=== PATIENT | male | born 1930 | race Caucasian/White ===

== ENCOUNTER 2017-10-20 12:27 | Day surgery (SDC) | payer MEDICARE, BC ==
[~2017-10-20 12:27] MED LIST: Buffered Lidocaine 0.9% SYRIN* 5 ML/SYR SYRINGE INTRADERM ONE; Famotidine IV* 10 MG/ML 2 ML (20 mg) IV ONE
[2017-10-20] MEDS ORDERED: Famotidine TAB* 20 MG ONE (12:52)
[2017-10-20] MEDS ORDERED: fentaNYL* 50 MCG/ML 2 ML VIAL (100 MCG VIAL) ONE (14:55)
[2017-10-20] MEDS ORDERED: Midazolam* 1 MG/ML 2 ML VIAL (2 MG) ONE (14:55)
[2017-10-20] MEDS ORDERED: Acetaminophen TAB* 325 MG PO PRN (14:57)
[2017-10-20] MEDS ORDERED: DiMENhydriNATE IV* 50 MG/ML VIAL IV PUSH PRN (14:57)
[2017-10-20] MEDS ORDERED: Naloxone* 0.4 MG/ML 1 ML VIAL IV PRN (14:57)
[2017-10-20] MEDS ORDERED: fentaNYL* 50 MCG/ML 2 ML VIAL (100 MCG VIAL) IV PRN (14:57)
[2017-10-20] MEDS ORDERED: Lidocaine 2% PF * 5 ML VIAL ONE (15:05)
[2017-10-20] MEDS ORDERED: Propofol* 10 MG/ML 20 ML BTL IV PUSH ONE (15:05)
[2017-10-20 16:09] VITALS: BP 148/87
--- NOTE | 2017-10-21 01:13 | PRO ---
CC: Dr. Osuna; Sunshine Magana DO GASTROENTEROLOGY OPERATIVE REPORT: DATE OF PROCEDURE: 10/20/17 OPERATIVE PROCEDURE: Esophagogastroduodenoscopy to second portion of the duodenum. SURGEON: Sunshine Magana DO. ANESTHESIA: Monitored anesthesia care. HISTORY OF PRESENT ILLNESS: Ed is a pleasant 86-year-old gentleman with a history of gastroesophageal reflux disease and previous Schatzki's ring with dilation back [place] [address] Pompa. He recently presented in [place] with a food impaction, it was successfully disimpacted, although he was instructed to have a followup endoscopy for further evaluation. He was switched over from omeprazole therapy to pantoprazole therapy with significant improvement of his symptoms. He is here for a diagnostic endoscopy. PREOPERATIVE DIAGNOSES: 1. Gastroesophageal reflux disease. 2. Recent food impaction. POSTOPERATIVE DIAGNOSES: 1. Tortuous distal esophagus. 2. LA grade A distal esophagitis with biopsies. 3. A 3-cm hiatal hernia. 4. Mild antral gastritis with CLOtest to rule out H. pylori. 5. Normal-appearing mid and proximal esophagus. 6. A 5-mm gastric fundic polyp, with biopsies. RECOMMENDATIONS: 1. Continue pantoprazole therapy daily. 2. Encouraged antireflux lifestyle modifications. 3. Encouraged to chew meals thoroughly to prevent any further food impactions. 4. We will follow up with path results and provide recommendations as necessary. DESCRIPTION OF PROCEDURE: Esophagogastroduodenoscopy was explained in detail to the patient. The risks, benefits, complications, alternatives, possibilities of missed lesions were explained and understood. Complications included, but were not limited to, reaction to anesthesia, aspiration, increased risk of bleeding, and perforation. All questions were answered. The patient demonstrated understanding of the conversation and informed consent was obtained. Next, the patient was brought to the endoscopy suite, placed in the left lateral recumbent position where blood pressure, cardiac, and oxygen monitors were applied. The patient was found to be a fit candidate for monitored anesthesia care. After adequate IV sedation was achieved, a bite block was placed. Next, a standard adult Olympus endoscope was inserted per os under direct visualization to the first and second portion of the duodenum. The first and second portion of the duodenum, including the bulb, were normal appearing. Further withdrawal of the endoscope into the gastric lumen revealed a very mild erythematous antrum. CLOtest was performed in order to H. pylori. On retroflexion, the patient had a loose gastric cardia sling. Further withdrawal of the endoscope into the distal esophagus revealed a 3 cm hiatal hernia ranging from 43 cm to 40 cm. Also there were erythematous changes consistent with LA grade A distal esophagitis. Cold forceps biopsies were obtained from this area. The patient was also noted to have a tortuous distal esophagus which could have been an etiology for the patient's food impaction given hiatal hernia, esophagitis, and tortuous esophagus. The rest of the tubular esophagus was normal appearing. Air was then removed from the patient. Endoscope was removed from the patient. The patient tolerated the procedure well. There were no immediate complications. 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 Thank you, Dr. Osuna, for allowing us to participate in the care of your patient. If you should have any further questions or concerns, please do not hesitate to contact us. [id number]/[facility] #: [id number] YUMIKO
== END 2017-10-20 16:00 | disposition home or self-care (01) ==
LOC: OR 12:27
PROVIDERS: ATTEND Internal Medicine Gastroenterology
DX: R13.10 Dysphagia, unspecified (principal); K22.2 Esophageal obstruction; K21.0 Gastro-esophageal reflux disease with esophagitis; K44.9 Diaphragmatic hernia without obstruction or gangrene; K31.7 Polyp of stomach and duodenum; J44.9 Chronic obstructive pulmonary disease, unspecified; N18.9 Chronic kidney disease, unspecified; E11.9 Type 2 diabetes mellitus without complications; Z79.84 Long term (current) use of oral hypoglycemic drugs; Z87.891 Personal history of nicotine dependence; D64.9 Anemia, unspecified
CPT/HCPCS: 87077; 88305; A9270-GY; J2250; J2704; J3010

== ENCOUNTER 2018-02-15 06:02 | Inpatient (IN) | payer MEDICARE, BC ==
--- NOTE | 2018-02-07 20:40 | HP ---
HISTORY AND PHYSICAL: DATE OF ADMISSION/SURGERY: 02/15/18 DATE OF OFFICE VISIT: 02/05/18 SURGEON: Venecia Taylor MD * (DICTATED BY VINEET ROONEY) PROCEDURE: Left total hip arthroplasty. CHIEF COMPLAINT: Left hip pain. HISTORY OF PRESENT ILLNESS: Mr. 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 He has failed conservative treatment and elected to proceed with a left total hip arthroplasty, which is scheduled for with Dr. Taylor. PAST MEDICAL HISTORY: Sleep apnea, spinal stenosis, diabetes, BPH, COPD, hypertension, esophageal stricture, osteoarthritis, asthma, and bradycardia. PAST SURGICAL HISTORY: Right shoulder surgery and upper endoscopy. CURRENT MEDICATIONS: 1. Aspirin 81 mg daily. 2. Terazosin 10 mg daily. 3. Allopurinol 300 mg daily. 4. Simvastatin 40 mg daily. 5. Singulair 10 mg daily. 6. Foradil Aerolizer as needed. 7. Proventil 2 puffs daily as needed. 8. Symbicort 2 puffs daily. 9. Magnesium oxide. 10. Metformin 500 mg twice a day. 11. Loratadine 10 mg daily. 12. Dulcolax as needed. 13. Ibuprofen as needed. 14. Gabapentin 300 mg daily. 15. Pantoprazole 40 mg daily. 16. Losartan potassium 50 mg daily. 17. Montelukast sodium 10 mg daily. 18. Meloxicam 7.5 mg twice daily. ALLERGIES: No known drug allergies. FAMILY HISTORY: Cancer. SOCIAL HISTORY: An 87-year-old who lives with his . He does not smoke or use drugs. Uses occasional alcohol. REVIEW OF SYSTEMS: A complete 14-point review of systems was reviewed with the patient. It was positive for GERD, diabetes, COPD, occasional shortness of breath. He reports his heart stopped during the shoulder surgery in the past. He denies history of DVT, PE, hepatitis, or HIV. PHYSICAL EXAMINATION GENERAL: He is well developed, well nourished, in no acute distress. VITAL SIGNS: He stands 5 feet 10 inches tall, weighs 185 pounds, blood pressure 150/70, heart rate 60. HEENT: Normocephalic, atraumatic. NECK: Supple. No palpable lymph nodes. PULMONARY: Lungs are clear to auscultation bilaterally. CARDIO: Regular rate and rhythm. Strong S1 and S2. ABDOMEN: Soft, nontender, nondistended. NEUROLOGICAL: Alert and oriented x3. MUSCULOSKELETAL: Left lower extremity: The skin is intact. There are no open wounds or abrasions. He walks with an antalgic-type gait, favoring his left hip. He has decreased internal and external rotation of the left hip. He is able to flex to 80 degrees and has essentially no rotation internally, externally without severe pain. He has 2+ dorsalis pedis pulse, intact sensation, and his lower extremity muscle group strengths are intact at 5/5. ASSESSMENT AND PLAN: Mr. Healy is an 87-year-old gentleman with end-stage osteoarthritis of the left hip. He has failed conservative treatment and elected to proceed with a left total hip arthroplasty. The surgery is scheduled for 02/15/[address] Taylor discussed the risks and benefits of the surgery at today's visit and all of his questions were answered. He will follow with Dr. Taylor 2 weeks after the surgery. VINEET ROONEY [id number]/[facility] #: [id number] YUMIKO
--- OUTSIDE RECORDS SUMMARY | 2018-02-15 06:08 | XMS REPORT ---
:1930 External Reference #:[id number] Author Organization [facility] Address [address] [place] [address] Phone [phone] Care Team Providers Name Role Phone Ej Osuna DO Primary Care Physician Unavailable Payers Type Date Identification Numbers Payment Provider Subscriber Medicare Primary Effective: Policy Number: Medicare Malik Healy 1995 [id number] PayID: [id number] [address] [place] [address] [facility]: 2012 Policy Number: BS Facets Malik Healy [id number] PayID: [id number] [address] [address] [place] [address] Problems Date Description Provider Status Onset: 01/05/2017 Type 2 diabetes mellitus Ryan Harper DO [facility] Active Onset: 12/11/2017 Neurogenic claudication Tejas Fraga M.D. Active co-occurrent and due to spinal stenosis of lumbar region Onset: 12/11/2017 Lumbar spondylolisthesis Tejas Fraga M.D. Active Onset: 12/11/2017 Arthralgia of the pelvic region and Tejas Fraga M.D. Active thigh Onset: 12/18/2017 Localized, primary osteoarthritis Venecia Taylor M.D. Active of the pelvic region and thigh Family History Date Family Member(s) Problem(s) Comments General Cancer General Heart Disease Siblings 1 Social History Type Date Description Comments Marital Status Lives With Spouse Occupation Retired Cigarette Use Quit 50 Years Ago Cigars Quit 50 Years Ago Pipe Never Smoked A Pipe Smokeless Tobacco Never Used Smokeless Tobacco ETOH Use Drinks 1 Alcoholic Beverage Per Day Recreational Drug Use Denies Drug Use Smoking Patient has never smoked Daily Caffeine Consumes on average 2 cups of regular coffee per day Exercise Type/Frequency Exercises sporadically Allergies, Adverse Reactions, Alerts Date Description Reaction Status Severity Comments 02/22/2011 NKDA active Medications Medication Date Status Form Strength Qnty SIG Indications Ordering Provider Aspirin Adult Active Tablets 81mg 1 po qd ( Unknown /0000 DR On hold since 02/08/18) Terazosin HCL Active Capsules 10mg 90cap take 1 Unknown /0000 s capsule by mouth every morning Allopurinol Active Tablets 300mg 90tab 1 po qd Unknown /0000 s Simvastatin Active Tablets 40mg 90tab 1 po qhs Unknown /0000 s Foradil Aerolizer Active Capsules 12mcg 60cap 1 puff Unknown /0000 s bid Proventil Active Aerosol 90mcg/Act 1unit 2 puffs Unknown /0000 s po qid prn Symbicort Active Aerosol 160-4.5mc 2 puff Unknown /0000 g/Act twice a day Magnesium Oxide -MG Active Capsules 400mg 1 or 2 by Unknown Supplement /0000 mouth every day 3-4 days a week and adjust as needed Metformin HCL Active Tablets 500mg 1 by Unknown /0000 mouth twice a day Loratadine Active Tablets 10mg 1 by Unknown /0000 mouth every day Docusate Sodium Active Tablets 100mg 1 by Unknown /0000 mouth twice daily Ketoconazole Active Cream 2% apply Unknown /0000 twice a day prn Gabapentin Active Capsules 300mg 1 by Unknown /0000 mouth a day Pantoprazole Sodium Active Tablets 40mg 1 by Unknown /0000 DR mouth every day Losartan Potassium Active Tablets 50mg Take One Unknown /0000 Tablet By Mouth Every Morning For High Blood Pressure Montelukast Sodium Active Tablets 10mg 1 by Unknown /0000 mouth every day Meloxicam Active Tablets 7.5mg take one Unknown /0000 tab twice daily as needed for pain, avoid other nsaids ( On Hold since 02/08/18) Symbicort 10/17 Hx Aerosol 80-4.5mcg 60uni 1 puff Yoan /2012 /Act ts inhaled MD Moisés - bid 01/03 Hydrochlorothiazide 00/ Hx Tablets 25mg 30tab 1 po qd Unknown /0000 s (not - taking) 12/08 Loratadine Hx Tablets 10mg 1mont 1 po qd Unknown /0000 h - 10/17 Omeprazole Hx Capsules 20mg 30cap 1 po qd Unknown /0000 s - 11/15 Singulair Hx Tablets 10mg 90tab 1 po qd Unknown /0000 s - 01/29 Lisinopril Hx Tablets 20mg 90tab 1/2 po qd Unknown /0000 s - 11/15 Asmanex 120 Metered Hx Aerosol 220mcg/In one 1 inh bid Unknown Doses /0000 h - 10/17 Hydrocodone/Ibuprofe Hx Tablets 7.5-200mg 50tab 1-2 bid Unknown n /0000 s prn(pt - dose have 12/08 has not been using) Chlorthalidone Hx Tablets 25mg 1/2 by Unknown /0000 mouth - every day 11/15 on Spiriva Respimat 00/ Hx Aerosol 2.5mcg/Ac 2 puffs Unknown /0000 t every day - 02/15 Ibuprofen Hx Tablets 600mg Unknown /0000 - 02/08 Hydrocodone Hx Suer 10-8mg/5M Take 5ML Unknown Polistirex/Chlorphen /0000 L By Mouth iramine Polistirex - Every 12 / Hours Needed For Cough Max Day 10ML Medications Administered in Office Medication Date Status Form Strength Qnty SIG Indications Ordering Provider Inj, Administered Injection Ryan Damian Regadenoson, 018 DO Leroy 0.1 MG FACC Technetium TC Administered Injection Ryan S. 99M 018 Harper, DO Tetrofosmin, FACC Per Unit Dose Up To 40 Millicuries Vital Signs Date Vital Result Comment 02/09/2018 Height 70.25 inches 5'10.25" Weight 183.00 lb with shoes Heart Rate 48 /min BP Systolic Sitting 140 mmHg Lue reg cuff BP Diastolic Sitting 60 mmHg Lue reg cuff BP Systolic Standing 142 mmHg Lue reg cuff BP Diastolic Standing 60 mmHg Lue reg cuff Respiratory Rate 16 /min BMI (Body Mass Index) 26.1 kg/m2 Ejection Fraction 55-60% date 01/23/2017 ECHO 02/05/2018 Height 70.25 inches 5'10.25" Weight 185.00 lb Heart Rate 60 /min BP Systolic 150 mmHg BP Diastolic 70 mmHg BMI (Body Mass Index) 26.4 kg/m2 01/30/2018 Height 70.25 inches 5'10.25" Heart Rate 48 /min BP Systolic 110 mmHg BP Diastolic 78 mmHg Respiratory Rate 16 /min Pain Level 4 backpain/hip O2 % BldC Oximetry 98 % 01/15/2018 Height 70.25 inches 5'10.25" Heart Rate 58 /min BP Systolic 120 mmHg BP Diastolic 86 mmHg Respiratory Rate 16 /min Body Temperature 97.2 F Pain Level 7 12/18/2017 Height 70.25 inches 5'10.25" Weight 185.00 lb Heart Rate 60 /min BP Systolic 136 mmHg BP Diastolic 80 mmHg BMI (Body Mass Index) 26.4 kg/m2 12/11/2017 Height 70.75 inches 5'10.75" Weight 170.50 lb Heart Rate 56 /min BP Systolic 150 mmHg BP Diastolic 70 mmHg Respiratory Rate 16 /min Body Temperature 96.5 F Pain Level 10 intermittent BMI (Body Mass Index) 23.9 kg/m2 11/15/2017 Height 70.75 inches 5'10.75" Weight 185.00 lb BP Systolic Sitting 140 mmHg BP Diastolic Sitting 80 mmHg Pain Level 8 BMI (Body Mass Index) 26.0 kg/m2 05/16/2017 Height 70.75 inches 5'10.75" Weight 185.00 lb Heart Rate 80 /min BP Systolic Sitting 130 mmHg BP Diastolic Sitting 80 mmHg Respiratory Rate 16 /min Pain Level 5 back BMI (Body Mass Index) 26.0 kg/m2 02/28/2017 Height 70.75 inches 5'10.75" Weight 185.00 lb Heart Rate 48 /min BP Systolic Sitting 118 mmHg BP Diastolic Sitting 72 mmHg Respiratory Rate 16 /min BMI (Body Mass Index) 26.0 kg/m2 02/16/2017 Height 70.75 inches 5'10.75" Weight 185.00 lb with shoes Heart Rate 54 /min BP Systolic Sitting 150 mmHg Rue reg cuff BP Diastolic Sitting 62 mmHg Rue reg cuff BP Systolic Standing 148 mmHg Rue reg cuff BP Diastolic Standing 60 mmHg Rue reg cuff Respiratory Rate 16 /min BMI (Body Mass Index) 26.0 kg/m2 Ejection Fraction 55-60% date 01/23/17 ECHO 01/05/2017 Height 70.75 inches 5'10.75" Weight 185.00 lb without shoes Heart Rate 58 /min BP Systolic 140 mmHg Rue reg cuff BP Diastolic 62 mmHg Rue reg cuff BP Systolic Sitting 152 mmHg Lue reg cuff BP Diastolic Sitting 66 mmHg Lue reg cuff BP Systolic Standing 132 mmHg Lue reg cuff " unsure on feet" BP Diastolic Standing 60 mmHg Lue reg cuff " unsure on feet" Respiratory Rate 16 /min BMI (Body Mass Index) 26.0 kg/m2 10/25/2016 Height 72 inches 6'0" Heart Rate 52 /min BP Systolic 136 mmHg BP Diastolic 68 mmHg Respiratory Rate 12 /min no difficulties breathing Pain Level 0 05/10/2016 Height 72 inches 6'0" Weight 196.00 lb Heart Rate 53 /min BP Systolic 126 mmHg BP Diastolic 62 mmHg BMI (Body Mass Index) 26.6 kg/m2 10/27/2015 Heart Rate 80 /min BP Systolic Standing 128 mmHg BP Diastolic Standing 80 mmHg 05/19/2015 Heart Rate 76 /min BP Systolic Sitting 122 mmHg BP Diastolic Sitting 78 mmHg 10/21/2014 Heart Rate 78 /min BP Systolic Sitting 124 mmHg BP Diastolic Sitting 82 mmHg 01/21/2014 Heart Rate 62 /min BP Systolic Sitting 126 mmHg BP Diastolic Sitting 78 mmHg 10/15/2013 Heart Rate 78 /min BP Systolic Sitting 128 mmHg BP Diastolic Sitting 82 mmHg Results Test Date Test Result H/L Range Note Type & Screen 02/05/2018 Patient Blood Type A Negative 1 Antibody Screen NEGATIVE 1 CBC Auto Diff 01/24/2018 White Blood Count 5.0 10^3/uL 3.5-10.8 Red Blood Count 3.41 10^6/uL Low 4.00-5.40 Hemoglobin 11.5 g/dL Low 14.0-18.0 Hematocrit 34 % Low 42-52 Mean Corpuscular Volume 100 fL High 80-94 Mean Corpuscular Hemoglobin 34 pg High 27-31 Mean Corpuscular HGB Conc 34 g/dL 31-36 Red Cell Distribution Width 14 % 10.5-15 Platelet Count 190 10^3/uL 150-450 Mean Platelet Volume 9.3 um3 7.4-10.4 Abs Neutrophils 3.2 10^3/uL 1.5-7.7 Abs Lymphocytes 1.1 10^3/uL 1.0-4.8 Abs Monocytes 0.5 10^3/uL 0-0.8 Abs Eosinophils 0.1 10^3/uL 0-0.6 Abs Basophils 0 10^3/uL 0-0.2 Abs Nucleated RBC 0 10^3/uL Granulocyte % 64.9 % 38-83 Lymphocyte % 22.5 % Low 25-47 Monocyte % 10.2 % High 0-7 Eosinophil % 1.7 % 0-6 Basophil % 0.7 % 0-2 Nucleated Red Blood Cells % 0.1 Urinalysis Profile 01/24/2018 Urine Color Straw Urine Appearance Clear Urine Specific [place] 1.009 Low 1.010-1.030 Urine pH 7.0 5-9 Urine Urobilinogen Negative Negative Urine Ketones Negative Negative Urine Protein Negative Negative Urine Leukocytes Negative Negative Urine Blood Negative Negative Urine Nitrite Negative Negative Urine Bilirubin Negative Negative Urine Glucose Negative Negative Inr/Protime 01/24/2018 Inr 0.99 0.77-1.02 Comp Metabolic Panel 01/24/2018 Sodium 135 mmol/L 135-145 Potassium 4.5 mmol/L 3.5-5.0 Chloride 102 mmol/L 101-111 Co2 Carbon Dioxide 25 mmol/L 22-32 Anion Gap 8 mmol/L 2-11 Glucose 136 mg/dL High 70-100 Blood Urea Nitrogen 14 mg/dL 6-24 Creatinine 1.00 mg/dL 0.67-1.17 BUN/Creatinine Ratio 14.0 8-20 Calcium 9.7 mg/dL 8.6-10.3 Total Protein 6.5 g/dL 6.4-8.9 Albumin 4.3 g/dL 3.2-5.2 Globulin 2.2 g/dL 2-4 Albumin/Globulin Ratio 2.0 1-3 Total Bilirubin 0.50 mg/dL 0.2-1.0 Alkaline Phosphatase 49 U/L 34-104 Alt 14 U/L 7-52 Ast 14 U/L 13-39 Egfr Non- 70.5 >60 Egfr 85.3 >60 2 1 PAIN IN LEFT HIP, UNILATERAL PRIMARY OSTEOARTHRITI 2 Because ethnic data is not always readily available, this report includes an eGFR for both -Americans and non- Americans. The National Kidney Disease Education Program (NKDEP) does not endorse the use of the MDRD equation for patients that are not between the ages of 18 and 70, are , have extremes of body size, muscle mass, or nutritional status, or are non- or non-. According to the National Kidney Foundation, irrespective of diagnosis, the stage of the disease is based on the level of kidney function: Stage Description GFR(mL/min/1.73 m(2)) 1 Kidney damage with normal or decreased GFR 90 2 Kidney damage with mild decrease in GFR 60-89 3 Moderate decrease in GFR 30-59 4 Severe decrease in GFR 15-29 5 Kidney failure <15 (or dialysis) Procedures Date CPT Code Description Status 02/09/2018 12998 EKG Tracing & Interpretation Completed 02/08/2018 57416 Holter Monitor Review (24 hr)dr review & interp only Completed 02/07/2018 82231 ECG Monitor/Recording W/Visual Superimposition Scanning Completed 02/07/2018 34614 ECG Monitor/Recording W/Visual Superimposition Scanning Completed 01/31/2018 09424 Stress Test Completed 01/31/2018 40289 Myocardial Perfusion Imaging Tomographic (Spect) Completed Multiple Studies 01/30/2018 59142 Remove Impacted Cerumen Completed 10/20/2017 57617 Endoscopy Upper GI Biopsy Completed 05/16/2017 72461 Remove Impacted Cerumen Completed 02/28/2017 85011 Remove Impacted Cerumen Completed 01/30/2017 35565 Holter Monitor Review (24 hr) review & interp only Completed 01/26/2017 61341 ECG Monitor/Recording W/Visual Superimposition Scanning Completed 01/23/2017 20080 ECHO Transthoracic, Real-Time 2D With Doppler And Color Completed Flow 01/05/2017 10868 EKG Tracing & Interpretation Completed 10/25/2016 77998 Remove Impacted Cerumen Completed 05/10/2016 04403 Remove Impacted Cerumen Completed 10/27/2015 43502 Remove Impacted Cerumen Completed 05/19/2015 26567 Remove Impacted Cerumen Completed 10/21/2014 86631 Remove Impacted Cerumen Completed 05/13/2014 17717 Remove Impacted Cerumen Completed 01/21/2014 62350 Remove Impacted Cerumen Completed 10/15/2013 83703 Remove Impacted Cerumen Completed 05/14/2013 69370 Remove Impacted Cerumen Completed 02/19/2013 08753 Tympanometry Completed 02/05/2013 96344 Remove Impacted Cerumen Completed 10/16/2012 17593 Remove Impacted Cerumen Completed 06/05/2012 31908 Remove Impacted Cerumen Completed 01/17/2012 34528 Remove Impacted Cerumen Completed 10/18/2011 31063 Remove Impacted Cerumen Completed 05/31/2011 10501 Remove Impacted Cerumen Completed 02/22/2011 83387 Remove Impacted Cerumen Completed Encounters Type Date Location Provider CPT E/M Dx Office Visit 01/15/2018 [facility] Venecia Taylor M.D. 10613 M25.552 10:15a Of [place] M16.12 Office Visit 12/18/2017 10:00a [facility] Of Venecia Taylor M.D. 32736 M48.062 [place] M25.552 M16.12 Office Visit 11/15/2017 2:15p [facility] Criselda Summers PA-C 64745 M48.[address] [facility] M43.16 M25.552 M51.36 Office Visit 02/16/2017 2:00p [facility] [address]00[address] [facility] FAC Office Visit 01/05/2017 1:00p [facility] Ryan Harper 61704 R06.02 [facility] R00.2 I10 E11.69 E78.5 J44.9 R00.1 Office Visit 03/05/2013 2:00p [facility] Of [place] Owens, 86458 381.81 AT [facility] Office Visit 02/19/2013 1:15p [facility] Of [place] Owens 34741 388.2 AT [facility] Office Visit 10/23/2012 11:20a [facility] Oj Romeo 13531 724.03 Of Brando Wu 724.02 Office Visit 05/14/2012 3:00p [facility] O[place] Romeo 58660 724.03 Of [facility] Wu 724.02 Plan of Care Future Appointment(s):02/28/2018 10:45 am - Venecia Taylor M.D. at [facility]05/08/2018 1:45 pm - Bandar Owens M.D. at [facility] AT Fwtbzljf12/09/2018 7:30 am - Carlos Eduardo Gregory PA-C at [facility]02/15/2018 7:30 am - VINEET Vasquez at [facility]02/15/2018 7:30 am - Venecia Taylor M.D. at [facility]02/09/2018 - Ryan Harper DO FACCZ01.810 Encounter for preprocedural cardiovascular examinationFollow up:1 year
--- OUTSIDE RECORDS SUMMARY | 2018-02-15 06:09 | XMS REPORT ---
:1930 External Reference #:[id number] Author Organization [facility] Address [address] [place] [address] [place] [address] Phone [phone] Care Team Providers Name Role Phone Ej Osuna DO Primary Care Physician Unavailable Payers Type Date Identification Numbers Payment Provider Subscriber Medicare Primary Effective: Policy Number: Medicare Malik Healy 1995 [id number] PayID: [id number] [address] [place] [address] [place] Part B Effective: 2012 Policy Number: BS Facets Malik Healy [id number] PayID: [id number] [address] [address] [place] [address] Problems Date Description Provider Status Onset: 01/05/2017 Type 2 diabetes mellitus Ryan Harper DO [facility] Active Onset: 12/11/2017 Neurogenic claudication Tejas Fraga [...] Adult Active Tablets 81mg 1 po qd Unknown / DR Terazosin HCL Active Capsules 10mg 90cap take 1 Unknown / s capsule by mouth every evening Allopurinol Active Tablets 300mg 90tab 1 po qd Unknown / s Simvastatin Active Tablets 40mg 90tab 1 po qhs Unknown / s Foradil Aerolizer Active Capsules 12mcg 60cap 1 puff bid Unknown / s Proventil Active Aerosol 90mcg/Act 1unit 2 puffs po Unknown / s qid prn Symbicort Active Aerosol 160-4.5mc 2 puff Unknown /0000 g/Act twice a day Magnesium Oxide Active Capsules 400mg 1 or 2 by Unknown -MG Supplement /0000 mouth every day 3-4 days a week and adjust as needed Metformin HCL Active Tablets 500mg 1 by mouth Unknown /0000 twice a day Loratadine Active Tablets 10mg 1 by mouth Unknown /0000 every day Docusate Sodium Active Tablets 100mg 1 by mouth Unknown /0000 up to two times a day as needed for constipatio n Ketoconazole Active Cream 2% apply twice Unknown /0000 a day prn Ibuprofen Active Tablets 600mg twice a Unknown /0000 day prn Gabapentin Active Capsules 300mg 1 by mouth Unknown /0000 a day Pantoprazole Active Tablets 40mg 1 by mouth Unknown Sodium /0000 DR every day Losartan Potassium Active Tablets 50mg Take One Unknown /0000 Tablet By Mouth Every Morning For High Blood Pressure Montelukast Sodium Active Tablets 10mg 1 by mouth Unknown /0000 every day Meloxicam Active Tablets 7.5mg take one Unknown /0000 tab twice daily as needed for pain, avoid other nsaids Symbicort 10/17 Hx Aerosol 80-4.5mcg 60uni 1 puff Yoan, /2012 /Act ts inhaled bid MD Moisés - 01/03 Hydrochlorothiazid 00/00 Hx Tablets 25mg 30tab 1 po qd Unknown e /0000 s (not - taking) 12/08 Loratadine / Hx Tablets 10mg 1mont 1 po qd Unknown /0000 h - 10/17 Omeprazole 00/ Hx Capsules 20mg 30cap 1 po qd Unknown /0000 s - 11/15 Singulair 00 Hx Tablets 10mg 90tab 1 po qd Unknown /0000 s - 01/29 Lisinopril 00/ Hx Tablets 20mg 90tab 1/2 po qd Unknown /0000 s - 11/15 Asmanex 120 00/ Hx Aerosol 220mcg/In one 1 inh bid Unknown Metered Doses /0000 h - 10/17 Hydrocodone/Ibupro 00 Hx Tablets 7.5-200mg 50tab 1-2 bid Unknown fen /0000 s prn(pt dose - have has 12/08 not been using) Chlorthalidone Hx Tablets 25mg 1/2 by Unknown /0000 mouth every - day on hold 11/15 Spiriva Respimat 00/00 Hx Aerosol 2.5mcg/Ac 2 puffs Unknown /0000 t every day - 02/15 Hydrocodone Hx Suer 10-8mg/5M Take 5ML By Unknown Polistirex/Chlorph /0000 L Mouth Every eniramine - 12 Hours as Polistirex 12/08 Needed For /2016 Cough Max Day 10ML Vital Signs Date Vital Result Comment 01/30/2018 Height 70.25 inches 5'10.25" Heart Rate [...] Test Date Test Result H/L Range Note CBC Auto Diff 01/24/2018 White Blood Count [...] Color Straw Urine Appearance Clear Urine Specific [place] 1.009 Low 1.010-1.030 Urine pH 7.0 5-9 [...] Egfr Non- 70.5 >60 Egfr 85.3 >60 1 1 Because ethnic data is not always readily [...] dialysis) Procedures Date CPT Code Description Status 10/20/2017 67535 Endoscopy Upper GI Biopsy Completed 05/16/2017 67962 Remove Impacted Cerumen Completed 02/28/2017 26109 Remove Impacted Cerumen Completed 01/30/2017 39063 Holter Monitor Review (24 hr)dr mccabe & interp only Completed 01/26/2017 02362 ECG Monitor/Recording W/Visual Superimposition Scanning Completed 01/23/2017 41329 ECHO Transthoracic, Real-Time 2D With Doppler And Color Completed Flow 01/05/2017 05403 EKG Tracing & Interpretation Completed 10/25/2016 02656 Remove Impacted Cerumen Completed 05/10/2016 38213 Remove Impacted Cerumen Completed 10/27/2015 14562 Remove Impacted Cerumen Completed 05/19/2015 11495 Remove Impacted Cerumen Completed 10/21/2014 24776 Remove Impacted Cerumen Completed 05/13/2014 56539 Remove Impacted Cerumen Completed 01/21/2014 64814 Remove Impacted Cerumen Completed 10/15/2013 66558 Remove Impacted Cerumen Completed 05/14/2013 71654 Remove Impacted Cerumen Completed 02/19/2013 20341 Tympanometry Completed 02/05/2013 37329 Remove Impacted Cerumen Completed 10/16/2012 79609 Remove Impacted Cerumen Completed 06/05/2012 87602 Remove Impacted Cerumen Completed 01/17/2012 44661 Remove Impacted Cerumen Completed 10/18/2011 05294 Remove Impacted Cerumen Completed 05/31/2011 10920 Remove Impacted Cerumen Completed 02/22/2011 37264 Remove Impacted Cerumen Completed Encounters Type Date Location Provider CPT E/M Dx Office Visit 01/15/2018 [facility] Venecia Taylor M.D. 17127 M25.552 10:15a Of [place] M16.12 Office Visit 12/18/2017 10:00a [facility] Of Venecia Taylor M.D. 06800 M48.062 [place] M25.552 M16.12 Office Visit 11/15/2017 2:15p [facility] Criselda Summers PA-C 61587 M48.062 Of [facility] M43.16 M25.552 M51.36 Office Visit 02/16/2017 2:00p [facility] [place] [address] R00.1 [facility] FACC Office Visit 01/05/2017 1:00p [facility] [place] [address] R06.02 [facility] FACC R00.2 I10 E11.69 E78.5 J44.9 R00.1 Office Visit 03/05/2013 2:00p [facility] Of [place] Owens, 97867 381.81 AT [facility] Office Visit 02/19/2013 1:15p [facility] Of [facility] Owens, 33646 388.2 AT [facility] Office Visit 10/23/2012 11:20a [facility]surgery Services Oj Romeo, 88367 724.03 Of [facility].D 724.02 Office Visit 05/14/2012 3:00p [facility] Oj Romeo, 52197 724.03 Of [facility].D. 724.02 Plan of Care Future Appointment(s):05/08/2018 1:45 pm - Bandar Owens M.D. at [facility] AT Zidqctqf58/09/2018 7:30 am - Carlos Eduardo Gregory PA-C at [facility]02/15/2018 7:30 am - VINEET Vasquez at [facility]01/31/2018 11:45 am - Ryan Harper DO FACC at [facility]02/09/2018 2:40 pm - yRan Harper DO FACC at [facility]02/15/2018 7:30 am - Venecia Taylor M.D. at [facility]02/05/2018 9:00 am - Venecia Taylor M.D. at [facility]02/08/2018 11:15 am - Nurse Visit IC at [facility]02/07/2018 11:00 am - Nurse Visit IC at [facility]
--- OUTSIDE RECORDS SUMMARY | 2018-02-15 06:09 | XMS REPORT ---
:1930 External Reference #:[id number] Author Organization [facility] Address [address] [place] [address] [place] [address] Phone [phone] Care Team Providers Name Role Phone Ej Osuna DO Primary Care Physician Unavailable Payers Type Date Identification Numbers Payment Provider Subscriber Medicare Primary Effective: Policy Number: Medicare Malik Healy 1995 [id number] PayID: [id number] [address] [place] [address] [facility] Part B Effective: 2012 Policy Number: BS Facets Malik Healy [id number] PayID: [id number] [address] [address] [place] [address] Problems Date Description Provider Status Onset: 01/05/2017 Type 2 diabetes mellitus Ryan Harper DO [facility] Active Onset: 12/11/2017 Neurogenic claudication Tejas [...] inhaled bid MD Moisés - 01/03 Hydrochlorothiazid 00/ Hx Tablets 25mg 30tab 1 po qd Unknown e /0000 s (not - taking) 12/08 Loratadine Hx Tablets 10mg 1mont 1 po qd Unknown /0000 h - 10/17 Omeprazole 00/ Hx Capsules 20mg 30cap 1 po qd Unknown /0000 s - 11/15 Singulair 00 Hx Tablets 10mg 90tab 1 po qd Unknown /0000 s - 01/29 Lisinopril 00 Hx Tablets 20mg 90tab 1/2 po qd [...] Needed For /2016 Cough Max Day 10ML Medications Administered in Office Medication Date Status Form Strength Qnty SIG Indications Ordering Provider Inj, Administered Injection Ryan SGilbert Regadenoson, 018 DO Leroy 0.1 MG FACC Technetium TC Administered Injection Ryan S. 99M 018 Harper, DO Tetrofosmin, FACC Per Unit Dose Up To 40 Millicuries Vital Signs Date Vital Result Comment 02/05/2018 Height 70.25 inches 5'10.25" Weight 185.00 [...] Color Straw Urine Appearance Clear Urine Specific [place] 1.009 Low 1.010-1.030 Urine pH 7.0 5-9 [...] dialysis) Procedures Date CPT Code Description Status 01/31/2018 20852 Stress Test Completed 01/31/2018 07870 Myocardial Perfusion Imaging Tomographic (Spect) Completed Multiple Studies 01/30/2018 33366 Remove Impacted Cerumen Completed 10/20/2017 91900 Endoscopy Upper GI Biopsy Completed 05/16/2017 79974 Remove Impacted Cerumen Completed 02/28/2017 43069 Remove Impacted Cerumen Completed 01/30/2017 89279 Holter Monitor Review (24 hr)dr review & interp only Completed 01/26/2017 23941 ECG Monitor/Recording W/Visual Superimposition Scanning Completed 01/23/2017 58471 ECHO Transthoracic, Real-Time 2D With Doppler And Color Completed Flow 01/05/2017 96866 EKG Tracing & Interpretation Completed 10/25/2016 56048 Remove Impacted Cerumen Completed 05/10/2016 17550 Remove Impacted Cerumen Completed 10/27/2015 72701 Remove Impacted Cerumen Completed 05/19/2015 40079 Remove Impacted Cerumen Completed 10/21/2014 03521 Remove Impacted Cerumen Completed 05/13/2014 57533 Remove Impacted Cerumen Completed 01/21/2014 52372 Remove Impacted Cerumen Completed 10/15/2013 32176 Remove Impacted Cerumen Completed 05/14/2013 40486 Remove Impacted Cerumen Completed 02/19/2013 41397 Tympanometry Completed 02/05/2013 10011 Remove Impacted Cerumen Completed 10/16/2012 97312 Remove Impacted Cerumen Completed 06/05/2012 45677 Remove Impacted Cerumen Completed 01/17/2012 12387 Remove Impacted Cerumen Completed 10/18/2011 17129 Remove Impacted Cerumen Completed 05/31/2011 47728 Remove Impacted Cerumen Completed 02/22/2011 63964 Remove Impacted Cerumen Completed Encounters Type Date Location Provider CPT E/M Dx Office Visit 01/15/2018 [facility] Venecia Taylor M.D. 41972 M25.552 10:15a Of [place] M16.12 Office Visit 12/18/2017 10:00a [facility] Venecia Taylor M.D. 33031 M48.062 [facility] M25.552 M16.12 Office Visit 11/15/2017 2:15p [facility] Criselda Summers PA-C 99366 M48.062 Of [facility] M43.16 M25.552 M51.36 Office Visit 02/16/2017 2:00p [facility] [place] [address] R00.1 [facility] FAC Office Visit 01/05/2017 1:00p [facility] [place] [address] R06.02 [facility] R00.2 I10 E11.69 E78.5 J44.9 R00.1 Office Visit 03/05/2013 2:00p [facility] Bandar Owens, 72267 381.81 AT [facility] Office Visit 02/19/2013 1:15p [facility] Owens, 35673 388.2 AT [facility] Office Visit 10/23/2012 11:20a [facility]surgery Services Oj Romeo, 51740 724.03 Of [facility] Jazmin 724.02 Office Visit 05/14/2012 3:00p [facility] Oj Romeo, 86131 724.03 Of [facility].DGilbert 724.02 Plan of Care Future Appointment(s):02/28/2018 10:45 am - Venecia Taylor M.D. at [facility]05/08/2018 1:45 pm - Bandar Owens M.D. at [facility] AT Nrvqkqly76/09/2018 7:30 am - Carlos Eduardo Gregory PA-C at [facility]02/15/2018 7:30 am - VINEET Vasquez at [facility]02/09/2018 2:40 pm - Ryan Harper DO FACC at [facility]02/15/2018 7:30 am - Venecia Taylor M.D. at [facility]02/08/2018 11:15 am - Nurse Visit IC at [facility]02/07/2018 11:00 am - Nurse Visit IC at [facility]02/05/2018 - Venecia Taylor M.D.M25.552 Pain in left hipFollow up:Follow up: 2 weeks after vjpmooqQ60.12 Unilateral primary osteoarthritis, left hip
--- OUTSIDE RECORDS SUMMARY | 2018-02-15 06:09 | XMS REPORT ---
:1930 External Reference #:[id number] Author Organization [facility] Address [address] [place] [address] Phone [phone] Care Team Providers Name Role Phone Ej Osuna D.O. Care Team Information Search Advertising Strategist Unavailable Payers Type Date Identification Numbers Payment Provider Subscriber Medicare Primary Effective: Policy Number: [facility] Malik Chiang 1995 [id number] Services PayID: [id number] [address] [place] [address] Medigap Part B Effective: Policy Number: Bradley Mejia 2012 [id number] Ind/Ppo/Hmo/Pos Mariia PayID: [id number] [address] [address] [place] [address] Problems Date Description Provider Status Onset: 11/09/2015 Lipoprotein deficiency disorder Ej Osuna D.O. Active Onset: 11/09/2015 Essential hypertension Ej Osuna D.O. Active Onset: 11/09/2015 Constipation Ej Osuna D.O. Active Onset: 11/09/2015 Allergic rhinitis Ej Osuna D.O. Active Onset: 11/09/2015 Stricture of esophagus Ej Osuna D.O. Active Onset: 11/09/2015 Benign prostatic hypertrophy without Ej Osuna D.O. Active outflow obstruction Onset: 11/09/2015 Uncomplicated moderate persistent Ej Osuna D.O. Active asthma Onset: 11/09/2015 Idiopathic gout, unspecified site Ej Osuna D.O. Active Onset: 11/09/2015 Sleep apnea Ej Osuna D.O. Active Onset: 11/09/2015 Bradycardia, unspecified Ej Osuna D.O. Active Onset: 11/09/2015 Type 2 diabetes mellitus Ej Osuna D.O. Active Onset: 05/02/2016 Tinea pedian Ej Osuna D.O. Active Onset: 10/21/2016 Uncomplicated moderate persistent Ej Osuna D.O. Active asthma Onset: 04/18/2017 Chronic obstructive lung disease Yanet Mcintosh PA Active Family History Date Family Member(s) Problem(s) Comments Father due to Due To Appendix @ Age 21 () Mother Cancer AGE 54 Mother due to Cancer () Social History Type Date Description Comments Education Highest level completed, 12th grade Marital Status Work Status Retired LAST WORKED 1992 Cigarette Use Denies Cigarette Use ETOH Use Current Alcohol Use: Daily Recreational Drug Use Denies Drug Use Smoking Non Smoker Daily Caffeine Consumes Caffeine 2-3 DAILY (NOS) Exercise Type/Frequency Exercises sporadically Sun Exposure Uses sunscreen SOME/PER PT Seat Belt/Car Seat Seat Belt Use - Yes Guns in Home Yes, Not Locked Up Smoke Alarms Yes smoke alarm Currently Active Patient is currently sexually active Age [address] [place] 20 Years Old Additional Info Sexual preference is women Allergies, Adverse Reactions, Alerts Date Description Reaction Status Severity Comments 11/09/2015 NKDA active Medications Medication Date Status Form Strength Qnty SIG Indications Ordering Provider Meloxicam 01/12/ Active Tablets 7.5mg 90tabs 1 by mouth Thao, 2018 every day Jluis PaganO. Pantoprazole 12/06/ Active Tablets DR 40mg 90tabs 1 by mouth K22.2 Thao, Sodium 2017 every day Ej D.O. Gabapentin 10/30/ Active Capsules 300mg 90caps 1 by mouth Thao, 2018 at night Ann Marie Pagan.O. Losartan 10/16/ Active Tablets 50mg 90tabs take 1 I10 Thao Potassium 2018 tablet Ej, daily in D.O. the morning for high blood pressure Magnesium 10/21/ Active Tablets 400mg 90tabs 1 tablets Thao 2016 daily 3/4 Ej, days and D.O. adjust dose as needed Metformin HCL 10/21/ Active Tablets 500mg 180tab 1 by mouth E11.9 Thao 2017 s twice a day Ej, D.O. Ketoconazole 05/02/ Active Cream 2% 15gm apply to B35.3 [facility]2015 affected Ej, area twice D.O. a day until rash has resolved. Symbicort 02/15/ Active Aerosol 160-4.5mcg 30.6gm inhale 2 J45.40 Sopchak, 2015 /Act puffs by Ej, mouth twice D.O. a day gargle after use Albuterol 11/07/ Active 90mcg Inhale 2 J45.40 Unknown Inhaler 2015 puffs po every 4 hrs. prn breathing Docusate 11/07/ Active Capsules 100mg 1 tab twice K59.00 Unknown Sodium 2015 a day Loratadine 11/07/ Active Tablets 10mg 1 by mouth J30.9 Unknown 2015 every day for allergies Montelukast 11/07/ Active Tablets 10mg 1 by mouth J45.40 Unknown Sodium 2015 hs Simvastatin 11/07/ Active Tablets 80mg 1/2 tab by E78.6 Unknown 2015 mouth hs Terazosin HCL 11/07/ Active Capsules 10mg 1 by mouth I10 Unknown 2015 daily N40.0 Aspirin 11/08/2015 Active 81mg 1 by mouth every Unknown Children's day Allopurinol 11/08/2015 Active Tablets 300mg take 1 tablet by M1 Unknown mouth every day 0. as directed, for 00 gout prevention Pantoprazole 09/08/2017 - Hx Solution Rec 40mg 1 by mouth [facility] Sodium 12/06/2017 a day 2. Ej, 2 D.O. Prednisone 04/03/2017 - Hx Tablets 20mg 5t 1 per morning x J4 Silcoff, 04/17/2017 ab 5 days for 4. huyen Arevalo bronchitis 0 M.D. Hydrocodone 04/03/2017 - Hx Suer 10-8mg 11 take 5 R0 Silcoff, Polistirex/Chlorp 04/17/2017 /5ML 8m milliliters by 5 Mickey heniramine l mouth every 12 M.D. Polistirex hours as needed for cough Fluticasone 04/03/2017 - Hx Suspension 50mcg/ 9. two sprays (50 J0 Silcoff, Propionate 01/11/2018 Act 90 mcg/spray) per 6. Mickey, 0m nostril once 9 M.D. l daily (can also try one spray per nostril bid) for sinus congestion Clarithromycin 12/19/2016 - Hx Tablets 500mg 20 1 by mouth twice J4 Thao, 12/29/2016 ta a day hold 4. beatrice Pagan simvastatin 1 D.O. while on clarithromycin Hydrocodone 12/19/2016 - Hx Suer 10-8mg 11 take 5 R0 Danniek, Polistirex/Chlorp 12/31/2016 /5ML 8m milliliters by 5 jimi Paganiramine l mouth every 12 D.O. Polistirex hours as needed for cough Ibuprofen 02/16/2016 - Hx Tablets 600mg 1 by mouth twice Unknown 01/11/2018 a day prn Spiriva Respimat 02/16/2016 - Hx Aerosol 2.5mcg 8g two inhalations Thao, 04/02/2017 /Act m (5mcg) once 5. Ej, daily (maximum: 40 D.O. 2 inhalations per 24 hours). Symbicort 11/08/2015 - Hx Aerosol 80-4.5 2 puffs 2x/day; [place] Osuna, 02/16/2016 mcg/Ac gargle after use 5. diamond Pagan 40 D.O. Chlorthalidone 11/08/2015 - Hx Tablets 25mg take 1/2 tablet I1 Unknown 04/18/2017 daily in the 0 morning for high blood pressure Lisinopril 11/08/2015 - Hx Tablets 20mg 1/2 tab po hs I1 Unknown 10/16/2017 for high blood 0 pressure Omeprazole 11/08/2015 - Hx Capsules DR 20mg 1 by mouth K2 Unknown 09/08/2017 before breakfast 2. for stomach 2 Immunizations CPT Code Status Date Vaccine Lot # 40944 Given 10/16/2017 Shingrix Zoster (Shingles) Vaccine (HZV) [id number] Recomb,Subnit,Adjuvanted 45673 Given 04/03/2017 Influenza Vaccine Split Virus Preservative Free Im [id number] Use 00079 Given 05/02/2016 Influenza Virus Vaccine, Quadrivalent, Split, [id number] Preservative Free 70510 Given Unknown Pneumococcal Immunization Vital Signs Date Vital Result Comment 01/24/2018 BP Systolic 138 mmHg BP Diastolic 60 mmHg Height 71.25 inches 5'11.25" with shoes Weight 186.00 lb with shoes BMI (Body Mass Index) 25.8 kg/m2 01/12/2018 BP Systolic 128 mmHg BP Diastolic 62 mmHg Heart Rate 50 /min O2 % BldC Oximetry 97 % Height 71.25 inches 5'11.25" with shoes Weight 182.00 lb with shoes BMI (Body Mass Index) 25.2 kg/m2 10/16/2017 BP Systolic 132 mmHg BP Diastolic 70 mmHg Heart Rate 48 /min O2 % BldC Oximetry 95 % 05/10/2017 BP Systolic 130 mmHg BP Diastolic 62 mmHg Weight 179.00 lb 04/18/2017 BP Systolic 110 mmHg rt arm w/automated cuff BP Diastolic 45 mmHg rt arm w/automated cuff Heart Rate 58 /min O2 % BldC Oximetry 97 % 04/03/2017 BP Systolic 118 mmHg BP Diastolic 62 mmHg Heart Rate 59 /min O2 % BldC Oximetry 30673 % Body Temperature 98.3 F Weight 183.00 lb 12/30/2016 BP Systolic 126 mmHg BP Diastolic 64 mmHg Heart Rate 52 /min O2 % BldC Oximetry 98 % Height 71.5 inches 5'11.50" Weight 185.00 lb w/shoes BMI (Body Mass Index) 25.4 kg/m2 12/22/2016 BP Systolic 122 mmHg BP Diastolic 56 mmHg Weight 193.00 lb 12/21/2016 BP Systolic 127 mmHg BP Diastolic 53 mmHg Heart Rate 68 /min strong/steady pulse Respiratory Rate 16 /min Body Temperature 97.9 F 12/19/2016 BP Systolic 134 mmHg BP Diastolic 64 mmHg O2 % BldC Oximetry 97 % Body Temperature 98.4 F Weight 191.00 lb 10/21/2016 BP Systolic 122 mmHg BP Diastolic 65 mmHg Height 71.5 inches 5'11.50" with shoes Weight 200.00 lb with shoes BMI (Body Mass Index) 27.5 kg/m2 05/02/2016 BP Systolic 122 mmHg BP Diastolic 62 mmHg Weight 196.00 lb with shoes 02/16/2016 BP Systolic 118 mmHg BP Diastolic 52 mmHg Heart Rate 47 /min Weight 195.00 lb with shoes 11/09/2015 BP Systolic 132 mmHg BP Diastolic 62 mmHg Height 71.5 inches 5'11.50" with shoes Weight 199.00 lb with shoes BMI (Body Mass Index) 27.4 kg/m2 Results Test Date Test Result H/L Range Note Laboratory test 01/12/2018 Hemoglobin A1c 5.8 finding Laboratory test 10/20/2017 Surgical Pathology SEE RESULT 1 finding BELOW Laboratory test 10/20/2017 Clotest SEE RESULT 2 finding BELOW Laboratory test 10/20/2017 Point of Care Glucose 129 mg/dL High 70-100 3 finding Laboratory test 10/16/2017 Hemoglobin A1c 5.7 finding Urine Microalbumin 05/10/2017 Ur Microalbumin < 15.0 mg/L Random (mg/L) Urine Creatinine 41.08 mg/dL Urine Microalbumin/Creatinine TNP ug/mg <31 4 CBC Auto Diff 05/08/2017 White Blood Count 5.3 10^3/uL 3.5-10.8 Red Blood Count 3.20 10^6/uL Low 4.0-5.4 Hemoglobin 10.7 g/dL Low 14.0-18.0 Hematocrit 32 % Low 42-52 Mean Corpuscular Volume 99 fL High 80-94 Mean Corpuscular Hemoglobin 34 pg High 27-31 Mean Corpuscular HGB Conc 34 g/dL 31-36 Red Cell Distribution Width 14 % 10.5-15 Platelet Count 215 10^3/uL 150-450 Mean Platelet Volume 9 um3 7.4-10.4 Abs Neutrophils 3.3 10^3/uL 1.5-7.7 Abs Lymphocytes 1.4 10^3/uL 1.0-4.8 Abs Monocytes 0.5 10^3/uL 0-0.8 Abs Eosinophils 0.1 10^3/uL 0-0.6 Abs Basophils 0 10^3/uL 0-0.2 Abs Nucleated RBC 0 10^3/uL Granulocyte % 61.7 % 38-83 Lymphocyte % 26.2 % 25-47 Monocyte % 9.9 % High 1-9 Eosinophil % 1.5 % 0-6 Basophil % 0.7 % 0-2 Nucleated Red Blood Cells % 0 Laboratory test finding 05/08/2017 Ferritin 150.0 ng/mL 24-336 Iron & Iron Binding Capacity 05/08/2017 Iron 110 g/dL 50-212 Unsaturated Iron Binding 185 g/dL Total Iron Binding Capacity 295 g/dL 250-450 % Iron Saturation 37 % 15-55 Retic Count 05/08/2017 Retic Count 1.2 % 0.5-1.5 Corrected Retic Count 0.9 % 0.5-1.5 Maturation Factor Retic 1.5 Retic Index 0.60 Mean Retic Volume 137.6 Immature Retic Fraction 0.44 RBC Retic Count 3.20 10^6/uL Low 4.6-6.2 Hematocrit for Retic CNT 32 % Low 42-52 Laboratory test finding 05/08/2017 Hemoglobin A1c (Glyco HGB) 6.8 % High 4.0-5.6 5 Laboratory test finding 04/18/2017 Glucose 171 6 Hemoglobin A1c 6.4 6 CBC Auto Diff 01/30/2017 White Blood Count 4.7 10^3/uL 3.5-10.8 Red Blood Count 3.38 10^6/uL Low 4.0-5.4 Hemoglobin 11.6 g/dL Low 14.0-18.0 Hematocrit 34 % Low 42-52 Mean Corpuscular Volume 102 fL High 80-94 Mean Corpuscular Hemoglobin 34 pg High 27-31 Mean Corpuscular HGB Conc 34 g/dL 31-36 Red Cell Distribution Width 15 % 10.5-15 Platelet Count 214 10^3/uL 150-450 Mean Platelet Volume 9 um3 7.4-10.4 Abs Neutrophils 2.8 10^3/uL 1.5-7.7 Abs Lymphocytes 1.3 10^3/uL 1.0-4.8 Abs Monocytes 0.5 10^3/uL 0-0.8 Abs Eosinophils 0.1 10^3/uL 0-0.6 Abs Basophils 0 10^3/uL 0-0.2 Abs Nucleated RBC 0 10^3/uL Granulocyte % 59.7 % 38-83 Lymphocyte % 27.6 % 25-47 Monocyte % 9.9 % High 1-9 Eosinophil % 1.8 % 0-6 Basophil % 1.0 % 0-2 Nucleated Red Blood Cells % 0 Comp Metabolic Panel 01/30/2017 Sodium 133 mmol/L 133-145 Potassium 4.1 mmol/L 3.5-5.0 Chloride 101 mmol/L 101-111 Co2 Carbon Dioxide 26 mmol/L 22-32 Anion Gap 6 mmol/L 2-11 Glucose 151 mg/dL High 70-100 Blood Urea Nitrogen 17 mg/dL 6-24 Creatinine 1.09 mg/dL 0.67-1.17 BUN/Creatinine Ratio 15.6 8-20 Calcium 9.5 mg/dL 8.6-10.3 Total Protein 6.6 g/dL 6.4-8.9 Albumin 4.1 g/dL 3.2-5.2 Globulin 2.5 g/dL 2-4 Albumin/Globulin Ratio 1.6 1-3 Total Bilirubin 0.60 mg/dL 0.2-1.0 Alkaline Phosphatase 58 U/L 34-104 Alt 13 U/L 7-52 Ast 11 U/L Low 13-39 Egfr Non- 64.0 >60 Egfr 82.3 >60 7 Laboratory test finding 12/30/2016 Hemoglobin A1c 6.2 CBC Auto Diff 12/29/2016 White Blood Count 6.3 10^3/uL 3.5-10.8 Red Blood Count 3.23 10^6/uL Low 4.0-5.4 Hemoglobin 10.7 g/dL Low 14.0-18.0 Hematocrit 32 % Low 42-52 Mean Corpuscular Volume 100 fL High 80-94 Mean Corpuscular Hemoglobin 33 pg High 27-31 Mean Corpuscular HGB Conc 33 g/dL 31-36 Red Cell Distribution Width 14 % 10.5-15 Platelet Count 274 10^3/uL 150-450 Mean Platelet Volume 9 um3 7.4-10.4 Abs Neutrophils 3.7 10^3/uL 1.5-7.7 Abs Lymphocytes 1.7 10^3/uL 1.0-4.8 Abs Monocytes 0.6 10^3/uL 0-0.8 Abs Eosinophils 0.2 10^3/uL 0-0.6 Abs Basophils 0.1 10^3/uL 0-0.2 Abs Nucleated RBC 0 10^3/uL Granulocyte % 59.2 % 38-83 Lymphocyte % 27.6 % 25-47 Monocyte % 9.6 % High 1-9 Eosinophil % 2.7 % 0-6 Basophil % 0.9 % 0-2 Nucleated Red Blood Cells % 0 Basic Metabolic Panel 12/29/2016 Sodium 133 mmol/L 133-145 Potassium 4.4 mmol/L 3.5-5.0 Chloride 103 mmol/L 101-111 Co2 Carbon Dioxide 22 mmol/L 22-32 Anion Gap 8 mmol/L 2-11 Glucose 127 mg/dL High 70-100 Blood Urea Nitrogen 25 mg/dL High 6-24 Creatinine 1.24 mg/dL High 0.67-1.17 BUN/Creatinine Ratio 20.2 High 8-20 Calcium 9.5 mg/dL 8.6-10.3 Egfr Non- 55.1 >60 Egfr 70.9 >60 8 Laboratory test finding 12/29/2016 Vitamin B12 345 pg/mL 180-914 9 Iron & Iron Binding Capacity 12/29/2016 Iron 51 g/dL 50-212 Unsaturated Iron Binding 209 g/dL Total Iron Binding Capacity 260 g/dL 250-450 % Iron Saturation 20 % 15-55 Laboratory test finding 12/29/2016 Ferritin 225.0 ng/mL 24-336 Retic Count 12/29/2016 Retic Count 0.9 % 0.5-1.5 Corrected Retic Count 0.6 % 0.5-1.5 Maturation Factor Retic 1.5 Retic Index 0.40 Mean Retic Volume 132.0 Immature Retic Fraction 0.51 RBC Retic Count 3.23 10^6/uL Low 4.6-6.2 Hematocrit for Retic CNT 32 % Low 42-52 Urine Micro Inhouse 12/22/2016 Ua WBC - 10 Ua RBC - 10 Ua Casts - 10 Ua Epi - 10 Ua Other - 10 Ua Glucose - 10 Ua Bilirubin - 10 Ua Ketones - 10 Ua Specific [place] 1.020 10 Ua Blood - 10 Ua PH 5.0 10 Ua Protein - 10 Ua Urobilinogen - 10 Ua Nitrite - 10 Ua Leukocytes - 10 Culture Urine Inhouse 12/22/2016 Colonies negative 10 Laboratory test finding 12/21/2016 Troponin-I (TnI) 0.01 ng/mL <0.04 CBC Auto Diff 12/21/2016 White Blood Count 10.1 10^3/uL 3.5-10.8 Red Blood Count 3.12 10^6/uL Low 4.0-5.4 Hemoglobin 10.3 g/dL Low 14.0-18.0 Hematocrit 31 % Low 42-52 Mean Corpuscular Volume 100 fL High 80-94 Mean Corpuscular Hemoglobin 33 pg High 27-31 Mean Corpuscular HGB Conc 33 g/dL 31-36 Red Cell Distribution Width 14 % 10.5-15 Platelet Count 203 10^3/uL 150-450 Mean Platelet Volume 9 um3 7.4-10.4 Abs Neutrophils 7.5 10^3/uL 1.5-7.7 Abs Lymphocytes 1.2 10^3/uL 1.0-4.8 Abs Monocytes 1.3 10^3/uL High 0-0.8 Abs Eosinophils 0 10^3/uL 0-0.6 Abs Basophils 0 10^3/uL 0-0.2 Abs Nucleated RBC 0 10^3/uL Granulocyte % 74.7 % 38-83 Lymphocyte % 12.3 % Low 25-47 Monocyte % 12.5 % High 1-9 Eosinophil % 0.2 % 0-6 Basophil % 0.3 % 0-2 Nucleated Red Blood Cells % 0 Laboratory test finding 12/21/2016 Magnesium 2.2 mg/dL 1.9-2.7 Phosphorus 3.0 mg/dL 2.5-5.0 TSH (Thyroid Stim Horm) 0.96 mcIU/mL 0.34-5.60 Comp Metabolic Panel 12/21/2016 Sodium 130 mmol/L Low 133-145 Potassium 4.8 mmol/L 3.5-5.0 Chloride 100 mmol/L Low 101-111 Co2 Carbon Dioxide 19 mmol/L Low 22-32 Anion Gap 11 mmol/L 2-11 Glucose 130 mg/dL High 70-100 Blood Urea Nitrogen 38 mg/dL High 6-24 Creatinine 2.08 mg/dL High 0.67-1.17 BUN/Creatinine Ratio 18.3 8-20 Calcium 9.3 mg/dL 8.6-10.3 Total Protein 6.7 g/dL 6.4-8.9 Albumin 4.0 g/dL 3.2-5.2 Globulin 2.7 g/dL 2-4 Albumin/Globulin Ratio 1.5 1-3 Total Bilirubin 0.80 mg/dL 0.2-1.0 Alkaline Phosphatase 62 U/L 34-104 Alt 14 U/L 7-52 Ast 17 U/L 13-39 Egfr Non- 30.4 >60 Egfr 39.0 >60 11 Laboratory test finding 10/21/2016 Hemoglobin A1c 7.4 Laboratory test finding 05/02/2016 Hemoglobin A1c 6.9 Laboratory test finding 05/02/2016 Alpha 1 Antitrypsin A1a 122 mg/dL 100 - 190 12 Magnesium 1.9 mg/dL 1.9-2.7 Vitamin D Total 25(Oh) 35.4 ng/mL 30-50 Urine Microalbumin Random 05/02/2016 Urine Creatinine 82.59 mg/dL Ur Microalbumin (mg/L) < 15.0 mg/L Urine Microalbumin/Creatinine TNP ug/mg <31 13 Laboratory test finding 02/16/2016 Hemoglobin A1c 6.9 1 SEE RESULT BELOW Name: MALIK CHIANG : [address]: Sunshine Magana DO Acct: [id number] Unit: [id number] AGE: 86 Location: OR Re10/20/17 SEX: M Status: [facility] [place] SPEC: [id number] FADIA: 10/20/17-15[address] [facility] [address]: Sunshine Magana DO REQ: [id number] RECD: 10/20/17-1712 STATUS: DENIZ CORRALES DR: Ej Osuna DO _ ORDERED: LEVEL 4/2 FINAL DIAGNOSIS 1. Stomach, polyp, biopsy: -- Hyperplastic fundic gland polyp. 2. Gastroesophageal junction, biopsy: -- Gastric Cardia-type mucosa with foveolar hyperplasia. -- No goblet cell/intestinal metaplasia or dysplasia identified. -- No squamous component identified. CLINICAL HISTORY 86 year old male with gastroesophageal reflux disease; history of Schatzki?s ring with recent food impaction POST-OPERATIVE DIAGNOSIS Normal duodenum to second portion; mild antral gastritis with CLOtest; 3 cm hiatal hernia (43-40 cm); [place] Grade A distal esophagitis with biopsy; tortuous distal esophagus; normal mid and proximal esophagitis. Conclusions/Plan: Follow-up pathology; proton pump inhibitor daily GROSS DESCRIPTION 1. The specimen is received in formalin labeled, Biopsy Gastric Polyp, and consists of a 0.5 x 0.3 x 0.2 cm speckled finney-brown irregular to polypoid soft tissue fragment, which is entirely submitted in one cassette. 2. The specimen is received in formalin labeled, Biopsy [place], and consists of two finney-pink irregular to polypoid soft tissue fragments measuring 0.3 x 0.2 x 0.2 cm and 0.4 x 0.3 x 0.2 cm, which are entirely submitted in one cassette. Signed (signature on file) Alli Valencia MD [id number] END OF REPORT DEPARTMENT OF PATHOLOGY, [address] [place] [address] Alli Valencia M.D. Director [facility] # [id number] 2 SEE RESULT BELOW Name: MARIIA,EDYONATAN : [address]: Sunshine Magana DO Acct: [id number] Unit: [id number] AGE: 86 Location: OR Re10/20/17 SEX: M Status: [facility] [place] SPEC: [id number] FADIA: 10/20/17-[address] [facility] [address]: Sunshine Magana DO REQ: [id number] RECD: 10/20/17 STATUS: BRAD SAGASTUME DR: Ej Osuna DO _ SOURCE: GAS ANTRUM SPDES: ORDERED: Clotest Procedure Result Reported Site Clotest Final 10/21/17- 737 ML Clotest Negative * ML - Main Lab . END OF REPORT DEPARTMENT OF PATHOLOGY, [address] [place] [address] Alli Valencia M.D. Director [facility] # [id number] 3 Wash Box Operator: [id number] Unable to calculate due to low microalbumin 5 Therapeutic target for the treatment of diabetes mellitus patients is <7% HBA1C, and in selective patients <6.0%. Please refer to [place] [employer] diabetic care guidelines for further information. 6 ~1.75 hrs after lunch 7 Because ethnic data is not always readily [...] 15-29 5 Kidney failure <15 (or dialysis) 8 Because ethnic data is not always readily [...] 15-29 5 Kidney failure <15 (or dialysis) 9 Normal Range 180 to 914 Indeterminate Range 145 to 180 Deficient Range <145 10 void, clear, yellow 11 Because ethnic data is not always readily [...] 15-29 5 Kidney failure <15 (or dialysis) 12 Test Performed by: [address] [address] Team Foreman: Tyrell Gibson II, M.D., Ph.D. 13 Unable to calculate due to low microalbumin Procedures Date CPT Code Description Status Comment 05/17/2017 Diabetic Retinal Eye Exam Completed [facility] checks are in December. Eye check the month following. Document: 05/17/17 - Martha RocaGilbert Manriquez, OD 05/10/2017 Diabetic Foot Exam Completed left big toenail with start of fungal nail infection. normal to monofilament no sores. 04/18/2017 02515 Electrocardiogram Complete Completed 12/21/2016 34484 Electrocardiogram Complete Completed 11/09/2015 55320 Electrocardiogram Complete Completed 07/10/2009 Colonoscopy Completed Encounters Type Date Location Provider CPT E/M Dx Office Visit 01/24/2018 8:00a [place] [address] Z01.818 M16.12 E11.9 I10 J45.40 K22.2 Office Visit 01/12/2018 9:45a Main Office Ej Osuna D.O. 07480 E11.9 I10 J44.9 M43.16 K22.2 M48.062 M54.5 M16.12 J45.40 R27.9 Office Visit 10/16/2017 8:55a Main Office Ej Osuna D.O. 27473 I10 E11.9 J44.9 N17.9 K22.2 M48.062 Z23 Z41.8 Z79.84 Office Visit 05/10/2017 12:55p Main Office Ej Osuna D.O. 46542 R42 E11.9 I10 J44.9 D64.9 Office Visit 04/18/2017 1:30p [place] [address] R42 E11.9 I10 J44.9 Office Visit 04/03/2017 1:40p Main Office Sandi Rios 06115 J44.0 J06.9 Z23 Office Visit 12/30/2016 1:15p Main Office Ej Osuna D.O. 64979 R73.01 N17.9 D64.9 R06.02 R00.2 R68.81 J44.1 Office Visit 12/22/2016 9:45a Main Office Ej Osuna D.O. 04937 N17.9 D64.9 R06.02 R00.2 R68.81 Office Visit 12/21/2016 2:15p Main Office Ej Osuna D.O. 60486 R00.2 J44.1 R42 Office Visit 12/19/2016 5:00p Main Office Ej Osuna D.O. 86655 J44.1 I10 N40.0 J45.40 E11.9 R05 Office Visit 10/21/2016 10:00a Main Office Ej Osuna D.O. 20648 E11.9 I10 N40.0 B35.3 J45.40 M10.00 E78.6 J30.9 K59.00 Office Visit 05/02/2016 10:00a Main Office Ej Osuna D.O. 16145 E11.9 B35.3 J45.40 I10 M10.00 N40.0 Z23 R00.1 Office Visit 02/16/2016 10:00a Main Office Ej Osuna D.O. 62563 J45.40 E11.9 E78.6 M10.00 I10 K59.00 J30.9 K22.2 N40.0 R00.1 Office Visit 11/09/2015 1:30p Main Office Ej Osuna D.O. 19126 E78.6 J45.40 M10.00 I10 K59.00 J30.9 K22.2 N40.0 R00.1 E11.9 Plan of Care Future Appointment(s):02/27/2018 4:45 pm - Ej Osuna D.O. at Main Dbqqez6001/24/2018 - Yanet Mcintosh, PAZ01.818 Encounter for other preprocedural examinationComments:Patient is at increased risk for surgery due to age and co- morbid conditions, but is medically cleared for planned procedure. Cardiac clearance to be determined by cardiology (Dr. Harper).Patient was advised to inform the surgeon of any acute illness which may occur between now and surgical date. Patient also informed to hold aspirin 3 days prior to procedure.This consultation has been faxed to thereferring physician.Labs (CBC, CMP, INR, UA) drawn in office today. Results pending, will be copied to surgeon.M16.12 Unilateral primary osteoarthritis, left hipComments:Surgery to be done as above.E11.9 Type 2 diabetes mellitus without complicationsComments: Well controlled w A1C (on 01/12) of 5.8%. Continue metformin and diabetic diet.I10 Essential (primary) hypertensionComments:Good control on current meds, continue same.J45.40 Moderate persistent asthma, uncomplicatedComments:Sx well controlled w current meds. Continue same and monitor (recheck in fall when allergies typically flare).K22.2 Esophageal obstructionComments:Doing well s/p esophageal dilation. Monitor.
[2018-02-15] MEDS ORDERED: Famotidine IV* 10 MG/ML 2 ML (20 mg) ONE (06:10)
[2018-02-15] MEDS ORDERED: ceFAZolin 2 GM PREMIX (*) 2 GM/50 ML BAG IVPB ONE (06:10)
[2018-02-15] MEDS ORDERED: Lidocaine 2% PF * 5 ML VIAL ONE (06:58)
[2018-02-15] MEDS ORDERED: Bupivacaine-MPF SPINAL* 7.5 MG/ML - 2ML AMP ONE (06:58)
[2018-02-15] MEDS ORDERED: Propofol* 10 MG/ML 20 ML BTL IV PUSH ONE (06:58)
[2018-02-15] MEDS ORDERED: Midazolam* 1 MG/ML 2 ML VIAL (2 MG) ONE (06:59)
[2018-02-15] MEDS ORDERED: fentaNYL* 50 MCG/ML 2 ML VIAL (100 MCG VIAL) ONE ×3 (06:59→10:58)
[2018-02-15] MEDS ORDERED: EPHEDrine (Pressors)* 50 MG/ML VIAL ONE (08:02)
[2018-02-15] MEDS ORDERED: Phenylephrine INJ* 10 MG/ML 1 ML VIAL (10 MG) ONE (08:15)
[2018-02-15] MEDS ORDERED: Acetaminophen TAB* 325 MG PO PRN (08:48)
[2018-02-15] MEDS ORDERED: Ondansetron INJ* 2 MG/ML VIAL IV PRN ×2 (08:48→10:20)
[2018-02-15] MEDS ORDERED: Naloxone* 0.4 MG/ML 1 ML VIAL IV PRN (08:48)
[2018-02-15] MEDS ORDERED: Bupivacaine 0.5% PF 10 ML VIAL INJ ONE (09:53)
--- NOTE | 2018-02-15 10:03 | RAD ---
Indication: Left total hip replacement. Single view of the lower pelvis demonstrates left femoral reamer in place. Acetabular cup in place. IMPRESSION: Intraoperative control film of the left hip for left hip replacement.
[2018-02-15] MEDS ORDERED: Magnesium Hydroxide LIQ* 30 ML UDC PO PRN (10:20)
[2018-02-15] MEDS ORDERED: Morphine VIAL* 4 MG/ML VIAL (1 ml vial) IV PRN (10:20)
[2018-02-15] MEDS ORDERED: oxyCODONE/Acetamin 5/325 MG* TAB PO PRN (10:20)
[2018-02-15] MEDS ORDERED: diPHENhydraMINE IV* 50 MG/ML 1 ml VIAL (BENADRYL) IV PRN (10:20)
[2018-02-15] MEDS ORDERED: Bisacodyl SUPP* 10 MG SUPP PR PRN (10:20)
[2018-02-15] MEDS ORDERED: Albuterol HFA INHALER* 8 gm MDI INH PRN (10:26)
[2018-02-15] MEDS ORDERED: oxyCODONE/Acetamin 5/325 MG* TAB ONE ×2 (10:58→11:19)
[2018-02-15] MEDS: oxyCODONE/Acetamin 5/325 MG* TAB PO PRN ×4 (11:00→20:52)
[2018-02-15] MEDS: fentaNYL* 50 MCG/ML 2 ML VIAL (100 MCG VIAL) IV PRN ×4 (11:00→11:32)
--- NOTE | 2018-02-15 11:17 | RAD ---
INDICATION: Left hip fescnqludzrh-hmzpbw-od COMPARISON: November 15, 2017 TECHNIQUE: Portable AP and crosstable lateral images were obtained FINDINGS: There is left hip arthroplasty. The prosthesis appears normally seated. There is no evidence of periprosthetic fracture. The remainder the bony pelvis is essentially unremarkable and unchanged. IMPRESSION: LEFT HIP ARTHROPLASTY. THE PROSTHESIS APPEARS WELL SEATED
[2018-02-15] MEDS ORDERED: Dextrose 50% Syringe 50 ML* 25 GM/50 ML SYRINGE IV PUSH PRN (12:15)
[2018-02-15] MEDS: oxyCODONE TAB* 5 MG TAB PO PRN ×2 (14:01→17:35)
[2018-02-15] MEDS: Acetaminophen TAB* 325 MG PO SCH ×2 (14:03→20:53)
--- NOTE | 2018-02-15 15:28 | PN ---
Progress Note - Progress Note Date of Service: 02/15/18 SOAP: Post op Note Subjective: [Pt was seen lying in bed in his room. States his pain is a 4/10. Has just taken some pain medication. VSS, denies chest pain, SOB] Objective: [General: NAD, A&O MSK, LLE: Dressing is c/d/i. Pt able to df/pf. ] Assessment: [POD 0 - LTHA ] Plan: [Hospitalists consult PT/OT to start tomorrow Oxycodone/percocet for pain 6mg of warfarin tonight, 30mg of lovenox tomorrow. ]
[2018-02-15] MEDS: ceFAZolin 1 GM in Dextrose (*) 1 GM/50 ML BAG IVPB SCH (15:56)
--- NOTE | 2018-02-15 16:44 | CONS ---
CC: Dr. Stephen; Dr. Taylor * CONSULTATION REPORT: DATE OF ADMISSION: 02/15/18 DATE OF CONSULT: 02/15/18 PRIMARY CARE PROVIDER: Dr. Stephen. ATTENDING PHYSICIAN WHILE IN THE HOSPITAL: Leno Boyle MD (report dictated by Nicola Galvez NP) REQUESTING PHYSICIAN IN CONSULT: Dr. Taylor. REASON FOR MEDICAL CONSULTATION: Evaluation and medical management of comorbid medical conditions. HISTORY OF PRESENT ILLNESS: Mr. Healy is an 87-year-old male patient, I will refer you to Dr. Taylor's H and P for details, but in short, he presents because he has been having significant amount of left hip pain. He has known spinal stenosis that he was deemed not a good operative candidate for back surgery; however, his left hip has been bothering him pretty significantly. He has significant arthritis. He failed conservative management, underwent evaluation by Dr. Taylor and it was felt that he would benefit from a total hip replacement, which he underwent today. He is evaluated in the short stay unit postoperatively. He said he is feeling well. He denies any chest pain. Denies any shortness of breath. Denies abdominal pain so he is having some left hip pain, but he denies having any numbness or tingling to that leg and he says he has good movement with dorsi and plantar flexion of the feet. He denies any nausea, vomiting, or abdominal pain. He does carry a significant history of ALEX , does not wear a mask; spinal stenosis; diabetes; history of asthma lifelong; BPH; hypertension; esophageal stricture; arthritis; bradycardia with resting heart rate around 50; and history of gout. Because of his medical complexity, we were asked to evaluate and consult. PAST MEDICAL HISTORY: Significant for: 1. ALEX. 2. Spinal stenosis. 3. Diabetes. 4. Asthma. 5. BPH. 6. Hypertension. 7. Esophageal stricture. 8. Gout. 9. Arthritis. 10. Bradycardia. PAST SURGICAL HISTORY: He has had: 1. Endoscopy. 2. Cataract extraction. 3. Right shoulder arthroscopy. 4. Left total hip arthroplasty done today. MEDICATIONS: Home meds according to the preop list that was provided includes: 1. Metformin 500 mg p.o. b.i.d. 2. Terazosin 10 mg p.o. q.a.m. 3. Zocor 80 mg daily. 4. Protonix 40 mg p.o. q.p.m. 5. Singulair 10 mg p.o. q.p.m. 6. Meloxicam 7.5 mg in the morning. 7. Cozaar 50 mg in the morning. 8. Claritin 10 mg p.o. daily. 9. Ketoconazole cream 1 application topically b.i.d. 10. Colace 100 mg p.o. b.i.d. 11. Symbicort 2 puffs inhale b.i.d. 12. Aspirin 81 mg daily. 13. Allopurinol 300 mg p.o. daily. 14. ProAir 2 puffs inhale every 4 hours as needed. ALLERGIES TO MEDICATIONS: None. FAMILY HISTORY: His mother in her 50s of lymphoma. Father from complications of appendicitis at the age of 21. SOCIAL HISTORY: He is a nonsmoker. He does drink a drink-a-day. Surrogate decision maker is his . REVIEW OF SYSTEMS: There is no documented fever. Denies having any significant weight change. There is no double vision. He denies having any ear discharge. There is no rhinorrhea. Denies having any sore throat. There is no thyroid enlargement. Denies having any chest pain. There is no orthopnea. There is no nocturnal dyspnea. Denies having any abdominal pain. There is no nausea, no vomiting. No dysuria, no frequency. No seizure, no loss of consciousness. No pruritus and no skin ulcerations. Review of 14 systems was completed, all others negative. PHYSICAL EXAM: Vital Signs: Blood pressure 144/61 with a pulse of 52, respirations 16, O2 sat 100%, temperature 97.5. General: At this time, Mr. Healy is an 87-year-old male patient. He appears to be well-nourished and well- developed. He is sitting in the hospital bed, does not appear to be in any acute distress. HEENT: Head: Atraumatic and normocephalic. Eyes: EOMs intact. Sclerae anicteric and not pale. Throat: Oral mucosa appears to be moist. No oropharyngeal erythema. Neck was supple. Heart: Sounds S1, S2. He had regular rate and rhythm. No murmurs, rubs, or gallops. Lungs: Clear to auscultation bilaterally. There was no wheezes, rales, or rhonchi. Abdomen was soft. It was flat. It was nontender. Bowel sounds were present. Extremities: Pulses were 2+ throughout. He has limited range of motion to the lower extremities because he is in hip abductor pillow, but distal CSM checks are intact bilaterally. Neurologically, he is awake, alert, and oriented x3. Tongue midline. Nurse Plastics were equal. He had no gross focal deficits. His skin was intact. DIAGNOSTIC STUDIES/LAB DATA: These are preoperative labs. WBC of 5.0, RBC of 3.41, hemoglobin of 11.5, his hematocrit was 34, platelet count 190. INR 0.99. Sodium 135, potassium 4.5, chloride 102, bicarb 25, BUN 14, creatinine of 1. A1c was 6.8. Calcium 9.7. Urine preop negative. He had a preop stress test, which was reported as normal. Preop EKG showed a sinus bradycardia, rate of [address] elevations or T- wave inversions. He had a preop chest x-ray, which showed small, right pleural effusions noted, hyperinflated lung okeefe. Old medical records were reviewed. ASSESSMENT AND PLAN: Mr. eHaly is an 87-year-old male patient coming into the orthopedic services today for an elective left total hip replacement. We are asked to evaluate in consult due to his medical complexity. Recommendations at this point are: 1. Status post left total hip. I will defer the management to Dr. Taylor and her team. 2. Obstructive sleep apnea. I would recommend 24-hour pulse oximetry monitoring for the first 24 hours postoperatively. 3. Spinal stenosis. Continue with supportive care. 4. Diabetes. I have put him on a lispro sliding scale. 5. History of asthma. P.r.n. albuterol has been ordered and we will continue his Symbicort. 6. Hypertension. Continue meds as prescribed with hold parameters. 7. Esophageal stricture. Not an active issue. Follow up with PCP. 8. Arthritis. Continue with his current medical regimen. 9. Bradycardia. He is asymptomatic. We will continue to monitor this. He had an extensive cardiac workup preop, again negative stress test and he had a Holter monitor where his average heart rate was around 52. 10. Gout. Continue allopurinol. 11. Benign prostatic hypertrophy. We will continue the patient's Hytrin for the time being. 12. DVT prophylaxis: I will defer to the primary team. 13. Code status: Full code. 14. Fluids, electrolytes and nutrition: I would recommend a consistent carb diet. TIME SPENT: Time spent on the admission was 60 minutes, greater than half the time was spent [id number] with the patient obtaining my history and physical, other half time was spent going over the plan of care with the patient and implementing plan of care. I discussed the plan of care with my attending, Dr. Boyle, he is in agreement. NICOLA GALVEZ, SUJIT [id number]/[facility] #: [id number] YUMIKO
[2018-02-15] MEDS ORDERED: Warfarin TAB(*) 6 MG PO ONE (17:00)
[2018-02-15] MEDS: Gabapentin CAP(*) 300 MG PO SCH (17:32)
[2018-02-15] MEDS: Atorvastatin* 40 MG TAB PO SCH (17:32)
[2018-02-15] MEDS: Montelukast Sodium TAB* 10 MG PO SCH (17:33)
[2018-02-15] MEDS: Insulin LISPRO* 1 UNITS UNIT SUBCUT SCH (17:33)
[2018-02-15] MEDS: Mometasone/Formoter 200/5 MDI INH SCH (20:14)
[2018-02-15] MEDS: Docusate CAP* 100 MG PO SCH (20:52)
[2018-02-15] MEDS: Magnesium Hydroxide LIQ* 30 ML UDC PO SCH (20:53)
[2018-02-16] MEDS: oxyCODONE/Acetamin 5/325 MG* TAB PO PRN ×3 (01:26→10:23)
[2018-02-16] MEDS: Acetaminophen TAB* 325 MG PO SCH ×3 (06:01→21:05)
--- NOTE | 2018-02-16 06:03 | OP ---
DATE OF OPERATION: 02/15/18 - ROOM #337 DATE OF : [birth year] SURGEON: Venecia Taylor MD PROJECT SURVEYOR: VINEET Vasquez. Mr. Gregory did help throughout the procedure with preparation of the leg, wound retraction, manipulation of the hip, and wound closure. ANESTHESIOLOGIST: Santiago WIGGINS ANESTHESIA: Spinal. 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 OPERATIVE PROCEDURE: Left total hip arthroplasty, primary abductor tendon repair, acetabular bone autografting with femoral head autograft. INDICATIONS: Mr. Healy is an 87-year-old gentleman with years of increasingly severely left hip pain. Radiographs showed [id number] arthritis. Due to continued pain and decreased quality of life, the patient elected to undergo left total hip arthroplasty. He has failed conservative treatment with anti- inflammatories, pain medications, and physical therapy. Informed consent was obtained from the patient. He understood the risks of surgery included, but were not limited to, bleeding, infection, damage to nearby structures, continued pain, need for further surgery, intraoperative fracture, nerve palsy, hardware failure or loosening, leg length discrepancy, dislocation, stroke, heart attack, blood clot, and . He wished to proceed. COMPLICATIONS: None. ESTIMATED BLOOD LOSS: 200 cc. SPECIMENS: Femoral head and acetabular reaming sent to Pathology. HARDWARE USED: This is uncemented Tesfaye total hip arthroplasty hardware. For the cup, a Tritanium cluster hole shell, 62G. A single 25-mm cancellous bone screw. For the polyethylene, a Trident X3 0-degree polyethylene insert, 44G. For the stem, an Accolade TMZF size 5 with a 132-degree neck. For the head, a LFIT V40 anatomic femoral head, 44 +0. INTRAOPERATIVE FINDINGS: Intraoperatively, the patient was noted to have severe end-stage arthritis. He had complete loss of cartilage along the femoral head and acetabulum. He had significant osteophyte formation along the inferior and anterior acetabulum. He had subchondral cyst formation and a full thickness abductor tendon tear with retraction. DESCRIPTION OF PROCEDURE: Mr. Healy was identified in the preanesthesia unit. His left lower extremity was marked as the correct operative side. Informed consent was signed and placed in the chart. The patient was taken to the operating room and placed under spinal anesthesia. A Nath catheter was placed. The patient was placed in the right lateral decubitus position on the peg board. All bony prominences were well padded. Left lower extremity was prepped and draped in the usual sterile fashion. Preop time-out was made to correctly identify the patient, side, and site. Appropriate perioperative antibiotics were given within 1 hour of incision. A 12-cm posterior hip incision was made with a 10 blade and carried down to the lateral fascial layer. The lateral fascial layer was then incised in line with the skin incision. The medius gluteus tendon was torn and retracted along the posterior aspect of the greater trochanter. A Charnley retractor was placed and the posterior aspect of the hip joint was visualized. The piriformis and conjoint tendons were identified. These were elevated off the posterolateral femur using electrocautery and tagged with #5 Ethibond. Next, the electrocautery was used to make a standard posterior capsular flap. This was also tagged with #5 Ethibond. The hip was dislocated. Lesser troch to center of the femoral head measured 70 mm. Oscillating saw was used to make the appropriate femoral neck cut. The femoral head was carefully removed. The femur was retracted anteriorly. After appropriate placement of retractors, the acetabulum was well visualized. Long-handled knife was used to sharply remove any remaining labrum from the acetabular rim. The acetabulum was sequentially reamed up to a size 61. A 61 reamer established a bleeding subchondral bone bed. A 61 trial had excellent fit and stability. A subchondral cyst was cleared of cystic debris and packed with femoral head autograft. The final implant chosen was a Tritanium cluster hole shell 62G. This was impacted into the acetabulum without difficulty. The cup was stable with appropriate anteversion and abduction angle. A single 25- mm screw was placed in the superior posterior quadrant for extra stability. A Trident X3 0- degree polyethylene liner 44G was chosen and impacted into the acetabulum. Stability of the liner was checked and rechecked and noted to be stable. Next, attention was turned to preparation of the proximal femur. A canal finder was used to enter the proximal femur. Femur was sequentially broached up to a size 5. Size 5 broach was stable with good anteversion. A 132 neck trial and a 44 + 0 head trial was chosen. Lesser troch to center of the femoral head measured 70 mm. The hip was reduced and taken through a range of motion. It was stable in all positions. Soft tissue tension and leg lengths were appropriate. The hip was carefully dislocated. Final implant chosen was an Accolade TMZF size 5 with a 132-degree neck. This was impacted into the femoral canal without difficulty. The stem was stable with appropriate anteversion. Final head chosen was a LFIT anatomic V40 femoral head 44 +0. This was impacted on to the femoral neck without difficulty. Final lesser troch to center of the femoral head measurement was 70 mm. The hip was copiously irrigated with sterile saline. The hip was reduced and taken through a range of motion. The hip was stable in all positions. Previously tagged capsule and tendons were reapproximated to the posterolateral femur through 2 trochanteric drill holes. Number 5 ethibond and 1-0 vicryl was used to perform a primary abductor tendon repair. Lateral fascial layer was closed using interrupted #1 Vicryls. The rest of the incision was closed in a layered fashion using 0 and 2-0 Vicryls. Skin was closed using running 3-0 Monocryl. Dermabond was placed over this. Sterile Adaptic, 4x4s, and paper tape were used to cover the incision. The patient's anesthesia was reversed without difficulty. He was taken to the PACU in stable condition. Intended weightbearing will be weightbearing as tolerated. Intended DVT prophylaxis will be Coumadin with a Lovenox bridge. [id number]/[facility] #: [id number] [facility] HOSPITALAnn Marie
[2018-02-16 06:34] LABS: Hematocrit 26 % (42-52); Hemoglobin 9.2 g/dl (14.0-18.0); Mean Platelet Volume 8.8 um3 (7.4-10.4); Platelet Count 155 10^3/ul (150-450)
[2018-02-16 06:35] LABS: INR 1.13 (0.77-1.02)
[2018-02-16 06:59] LABS: EGFR Non-African American 73.9 (>60)
[2018-02-16] MEDS: Mometasone/Formoter 200/5 MDI INH SCH ×2 (08:06→20:59)
[2018-02-16] MEDS ORDERED: Losartan TAB* 25 MG PO SCH (09:00)
[2018-02-16] MEDS: ceFAZolin 1 GM in Dextrose (*) 1 GM/50 ML BAG IVPB SCH ×2 (09:08)
[2018-02-16] MEDS: Insulin LISPRO* 1 UNITS UNIT SUBCUT SCH ×3 (09:09→17:50)
[2018-02-16] MEDS: Magnesium Hydroxide LIQ* 30 ML UDC PO SCH ×2 (10:22→21:06)
[2018-02-16] MEDS: Losartan TAB* 25 MG PO SCH (10:24)
[2018-02-16] MEDS: Cetirizine* 10 MG TAB PO SCH (10:25)
[2018-02-16] MEDS: Allopurinol TAB* 300 MG PO SCH (10:25)
[2018-02-16] MEDS: Magnesium Oxide TAB* 400 MG PO SCH (10:25)
[2018-02-16] MEDS: Vitamin THERAPEUTIC TAB PO SCH (10:25)
[2018-02-16] MEDS: Docusate CAP* 100 MG PO SCH ×2 (10:26→21:06)
[2018-02-16] MEDS: Terazosin CAP* 5 MG PO SCH (10:28)
--- NOTE | 2018-02-16 10:37 | PN ---
Progress Note - Progress Note Date of Service: 02/16/18 SOAP: Subjective: Pt was seen sitting u pin chair. States his pain is a 4/10. Has just taken some pain medication. VSS, denies chest pain, SOB. The pt does feel that he is a little bloated and gassy.] Objective: [General: NAD, A&O MSK, LLE: Dressing is c/d/i. Pt able to df/pf. sensation is intact to light touch. 2+ DP ] Vital Signs Temp 98.6 F 02/16/18 07:22 Pulse 70 02/16/18 08:44 Resp 16 02/16/18 10:23 BP 126/54 02/16/18 08:44 Pulse Ox 97 02/16/18 08:44 Intake & Output 02/15/18 02/16/18 02/16/18 18:59 06:59 18:59 Intake Total 2500 2495 720 Output Total 1000 850 Balance 1500 1645 720 Intake: IV Fluids 1450 1095 ABX - CEFAZOLIN 110 LR 1400 985 NS 50ML, Cefazolin 2G 50 Oral 1050 1400 720 Output: Nath 700 850 Estimated Blood Loss 300 Assessment: [POD 1 - LTHA ] Plan: [Hospitalists consult PT/OT Oxycodone/percocet for pain 8mg of warfarin tonight, 30mg of lovenox tomorrow. [facility] consult placed ]
--- NOTE | 2018-02-16 12:07 | PN ---
Subjective Date of Service: 02/16/18 Interval History: HOSPITALIST PROGRESS NOTE Patient seen and examined at bedside. Care reviewed and d/w Taty Pettit RN. He had some nausea earlier today, but no vomiting. Tolerated breakfast well. Pain is controlled and he's looking forward to work with PT. Family History: Unchanged from Admission Social History: Unchanged from Admission Past Medical History: Unchanged from Admission Objective Active Medications: Acetaminophen (Tylenol Tab*) 650 mg PO Q8H [facility] Last Admin: 02/16/18 06:01 Dose: Not Given Albuterol (Ventolin Hfa Inhaler*) 2 puff INH Q4H PRN PRN Reason: SHORTNESS OF BREATH Allopurinol (Zyloprim Tab*) 300 mg PO QAM [facility] Last Admin: 02/16/18 10:25 Dose: 300 mg Atorvastatin Calcium (Lipitor*) 40 mg PO QPM [facility] Last Admin: 02/15/18 17:32 Dose: 40 mg Bisacodyl (Dulcolax Supp*) 10 mg [place] DAILY PRN PRN Reason: constipation Cetirizine HCl (Zyrtec*) 10 mg PO QAM [facility] Last Admin: 02/16/18 10:25 Dose: 10 mg Cyclobenzaprine HCl (Flexeril Tab*) 5 mg PO TID PRN PRN Reason: SPASMS Dextrose (D50w Syringe 50 Ml*) 12.5 gm IV PUSH .FOR FS < 60 - SS PRN PRN Reason: FS < 60 Diphenhydramine HCl (Benadryl Iv*) 25 mg IV Q6H PRN PRN Reason: itching Docusate Sodium (Colace Cap*) 100 mg PO BID [facility] Last Admin: 02/16/18 10:26 Dose: 100 mg Enoxaparin Sodium (Lovenox(*)) 30 mg SUBCUT Q24H [facility] Gabapentin (Neurontin Cap(*)) 300 mg PO QPM [facility] Last Admin: 02/15/18 17:32 Dose: 300 mg Lactated Ringer's (Lactated Ringers 1000 Ml Bag*) 1,000 mls @ 75 mls/hr IV PER RATE [facility] Stop: 02/16/18 18:00 Last Admin: 02/16/18 01:29 Dose: 75 mls/hr Insulin Human Lispro (Humalog*) 0 units SUBCUT [facility]; Protocol Last Admin: 02/16/18 09:09 Dose: 2 units Losartan Potassium (Cozaar Tab*) 50 mg PO QAM [facility] Last Admin: 02/16/18 10:24 Dose: 50 mg Magnesium Hydroxide (Milk Of Magnesia Liq*) 30 ml PO BID [facility] Last Admin: 02/16/18 10:22 Dose: 30 ml Magnesium Hydroxide (Milk Of Magnesia Liq*) 30 ml PO Q6H PRN PRN Reason: constipation Magnesium Oxide (Magox 400 Tab*) 800 mg PO QAM [facility] Last Admin: 02/16/18 10:25 Dose: 800 mg Mometasone Furoate/Formoterol Fumar (Dulera 200/5 Mdi*) 2 puff INH BID [facility]; Protocol Last Admin: 02/16/18 08:06 Dose: 2 puff Montelukast Sodium (Singulair Tab*) 10 mg PO QPM [facility] Last Admin: 02/15/18 17:33 Dose: 10 mg Morphine Sulfate (Morphine Vial*) 2 mg IV Q2H PRN PRN Reason: PAIN Last Admin: 02/16/18 09:08 Dose: 2 mg Multivitamins (Theragran Tab*) 1 tab PO DAILY [facility] Last Admin: 02/16/18 10:25 Dose: 1 tab Ondansetron HCl (Zofran Inj*) 4 mg IV Q6H PRN PRN Reason: nausea Last Admin: 02/16/18 09:08 Dose: 4 mg Oxycodone HCl (Roxycodone Tab*) 10 mg PO Q4H PRN PRN Reason: PAIN - SEVERE Last Admin: 02/15/18 17:35 Dose: 10 mg Oxycodone/Acetaminophen (Percocet 5/325 Tab*) 1 tab PO Q4H PRN PRN Reason: PAIN Oxycodone/Acetaminophen (Percocet 5/325 Tab*) 2 tab PO Q4H PRN PRN Reason: PAIN Last Admin: 02/16/18 10:23 Dose: 2 tab Pharmacy Profile Note (Coumadin Daily Reminder*) 1 note FOLLOW UP 1700 [facility] Last Admin: 02/15/18 17:33 Dose: 1 note Terazosin HCl (Hytrin Cap*) 10 mg PO QAM [facility] Last Admin: 02/16/18 10:28 Dose: 10 mg Vital Signs - 8 hr 08/04/2602/16/18 02/16/18 04:02 04:34 06:10 Temperature 98.6 F Pulse Rate 68 Respiratory 16 16 16 Rate Blood Pressure 103/40 (mmHg) O2 Sat by Pulse 95 Oximetry 02/16/18 02/16/18 02/16/18 07:22 08:07 08:44 Temperature 98.6 F Pulse Rate 63 83 70 Respiratory 18 20 Rate Blood Pressure 138/48 126/54 (mmHg) O2 Sat by Pulse 97 98 97 Oximetry Oxygen Devices in Use Now: None Appearance: Elderly gentleman sitting up in a recliner in NAD. Eyes: No Scleral Icterus Ears/Nose/Mouth/Throat: Mucous Membranes Moist Neck: Trachea Midline Respiratory: Symmetrical Chest Expansion and Respiratory Effort, Clear to Auscultation Cardiovascular: RRR - Normal S1 and S2 Abdominal: NL Sounds; No Tenderness; No Distention Neurological: Alert and Oriented x 3, NL Muscle Strength and Tone Result Diagrams: 02/16/18 05:41 02/16/18 05:41 Assess/Plan/Problems-Billing Assessment: Mr Healy is an 87yo M with PMH of ALEX, spinal stenosis, type 2 DM, asthma, BPH, HTN, gout, esophageal stricture, bradycardia, admitted for elective left total hip arthroplasty by Dr Taylor on 02/15/18. - Patient Problems (1) History of total hip arthroplasty Comment: - Management as per Ortho. (2) Type 2 diabetes mellitus Comment: - Controlled. - Continue consistent carb diet, Lispro SS. - Resume Metformin on discharge. (3) ALEX (obstructive sleep apnea) Comment: - Not compliant with CPAP. - Oxygen saturation has been normal. (4) HTN (hypertension) Comment: - Well controlled. - Continue Losartan and Terazosin. (5) Asthma Comment: - Controlled. - Continue Montelukast and bronchodilators as needed. (6) Bradycardia Comment: - HR in the 50s overnight, asymptomatic. (7) Gout Comment: - Continue Allopurinol. (8) DVT prophylaxis Comment: - Lovenox and Warfarin as per Ortho. (9) Full code status Status and Disposition: Hospitalist service will continue to follow.
[2018-02-16] MEDS: Enoxaparin(*) 30 MG/0.3 ML SYR SUBCUT SCH (13:08)
[2018-02-16] MEDS: oxyCODONE TAB* 5 MG TAB PO PRN (16:35)
[2018-02-16] MEDS ORDERED: Warfarin TAB(*) 5 MG PO ONE (17:00)
[2018-02-16] MEDS: Atorvastatin* 40 MG TAB PO SCH (17:47)
[2018-02-16] MEDS: Gabapentin CAP(*) 300 MG PO SCH (17:47)
[2018-02-16] MEDS: Montelukast Sodium TAB* 10 MG PO SCH (17:48)
[2018-02-17] MEDS: Acetaminophen TAB* 325 MG PO SCH ×3 (05:15→21:03)
[2018-02-17 06:29] LABS: Hematocrit 25 % (42-52); Hemoglobin 8.8 g/dl (14.0-18.0); Mean Platelet Volume 8.4 um3 (7.4-10.4); Platelet Count 148 10^3/ul (150-450)
[2018-02-17 06:36] LABS: INR 1.44 (0.77-1.02)
[2018-02-17 06:48] LABS: EGFR Non-African American 68.9 (>60)
[2018-02-17] MEDS: Terazosin CAP* 5 MG PO SCH (09:00)
[2018-02-17] MEDS: Losartan TAB* 25 MG PO SCH (09:03)
[2018-02-17] MEDS: Magnesium Oxide TAB* 400 MG PO SCH (09:04)
[2018-02-17] MEDS: Allopurinol TAB* 300 MG PO SCH (09:04)
[2018-02-17] MEDS: Vitamin THERAPEUTIC TAB PO SCH (09:04)
[2018-02-17] MEDS: Cetirizine* 10 MG TAB PO SCH (09:04)
[2018-02-17] MEDS: Insulin LISPRO* 1 UNITS UNIT SUBCUT SCH ×3 (09:05→17:37)
[2018-02-17] MEDS: Docusate CAP* 100 MG PO SCH ×2 (09:12→21:02)
[2018-02-17] MEDS: Magnesium Hydroxide LIQ* 30 ML UDC PO SCH ×2 (09:12→21:02)
[2018-02-17] MEDS: Mometasone/Formoter 200/5 MDI INH SCH ×2 (09:44→20:55)
--- NOTE | 2018-02-17 10:08 | PN ---
Progress Note - Progress Note Date of Service: 02/17/18 SOAP: Subjective: Pt is doing well. Pain is controlled. Reports some lethargy and lightheadedness. Progressing well with PT. Denies CP. No change in baseline SOB d/t COPD. Denies calf pain or F/C Objective: PE: 87 y/o WDWN M NAD, A&Ox3 LLE- dressing changed, inc c/d/i, calf soft NT, +DF/PF, +2 Dp pulse, SILT distally Vital Signs Temp Pulse Resp BP Pulse Ox 98.6 F 67 18 116/44 97 02/17/18 07:58 02/17/18 07:58 02/17/18 09:05 02/17/18 07:58 02/17/18 07:58 Laboratory Results - last 24 hr 02/16/18 02/16/18 02/17/18 12:28 17:12 06:13 Hgb 8.8 L Hct 25 L Plt Count 148 L MPV 8.4 INR (Anticoag Therapy) Sodium Potassium Chloride Carbon Dioxide Anion Gap BUN Creatinine Est GFR ( Amer) Est GFR (Non-Af Amer) BUN/Creatinine Ratio Glucose POC Glucose (mg/dL) 161 H 203 H Calcium 02/17/18 02/17/18 06:13 06:13 Hgb Hct Plt Count MPV INR (Anticoag Therapy) 1.44 H Sodium 129 L Potassium 4.1 Chloride 97 L Carbon Dioxide 27 Anion Gap 5 BUN 17 Creatinine 1.02 Est GFR ( Amer) 83.4 Est GFR (Non-Af Amer) 68.9 BUN/Creatinine Ratio 16.7 Glucose 164 H POC Glucose (mg/dL) Calcium 9.3 Assessment: [POD 2 - LTHA ] Plan: [Hospitalists consult appreciated Will cont to monitor H&H and BP, Vital signs currently stable Cont PT/OT-WBAT Oxycodone/percocet for pain Cont lovenox, 8mg of warfarin tonight Likely DC to [facility] tomorrow
[2018-02-17] MEDS: Enoxaparin(*) 30 MG/0.3 ML SYR SUBCUT SCH (12:28)
--- NOTE | 2018-02-17 15:17 | PN ---
Hospitalist Progress Note Date of Service: 02/17/18 HOSPITALIST ADDENDUM last 24h events noted. Patient doing well post op with stable VS. Plan is to d/c to [facility] tomorrow. Hospitalist service will sign off. Please don't hesitate to call us with any questions.
[2018-02-17] MEDS ORDERED: Warfarin TAB(*) 4 MG PO ONE (17:00)
[2018-02-17] MEDS: Gabapentin CAP(*) 300 MG PO SCH (17:36)
[2018-02-17] MEDS: Atorvastatin* 40 MG TAB PO SCH (17:36)
[2018-02-17] MEDS: Montelukast Sodium TAB* 10 MG PO SCH (17:36)
[2018-02-17] MEDS: Cyclobenzaprine TAB* 10 MG PO PRN (21:03)
[2018-02-18] MEDS: Cyclobenzaprine TAB* 10 MG PO PRN (05:09)
[2018-02-18] MEDS: Acetaminophen TAB* 325 MG PO SCH (05:09)
[2018-02-18 05:35] LABS: Hematocrit 25 % (42-52); Hemoglobin 8.7 g/dl (14.0-18.0); Mean Platelet Volume 8.1 um3 (7.4-10.4); Platelet Count 161 10^3/ul (150-450)
[2018-02-18 05:39] LABS: INR 2.21 (0.77-1.02)
[2018-02-18] MEDS: Allopurinol TAB* 300 MG PO SCH (09:34)
[2018-02-18] MEDS: Terazosin CAP* 5 MG PO SCH (09:34)
[2018-02-18] MEDS: Cetirizine* 10 MG TAB PO SCH (09:34)
[2018-02-18] MEDS: Vitamin THERAPEUTIC TAB PO SCH (09:34)
[2018-02-18] MEDS: Losartan TAB* 25 MG PO SCH (09:35)
[2018-02-18] MEDS: Magnesium Oxide TAB* 400 MG PO SCH (09:36)
[2018-02-18] MEDS: Insulin LISPRO* 1 UNITS UNIT SUBCUT SCH ×2 (09:36→11:58)
[2018-02-18] MEDS: Docusate CAP* 100 MG PO SCH (09:36)
[2018-02-18] MEDS: Magnesium Hydroxide LIQ* 30 ML UDC PO SCH (09:36)
[2018-02-18] MEDS: Mometasone/Formoter 200/5 MDI INH SCH (09:37)
[2018-02-18] MEDS ORDERED: oxyCODONE TAB* 5 MG TAB PO PRN (09:43)
[2018-02-18] MEDS ORDERED: oxyCODONE TAB* 5 MG TAB ONE (09:50)
--- NOTE | 2018-02-18 11:16 | PN ---
Progress Note - Progress Note Date of Service: 02/18/18 SOAP: Subjective: Pt is doing well. Pain is controlled. Continued fatigue, no dizziness. Denies CP/SOB, F/C. Objective: 87 y/o WDWN NAD A&Ox3 LLE- dressing c/d/i, calf soft NT, +ankle DF/PF, SILT distally Vital Signs Temp Pulse Resp BP Pulse Ox 99.5 F 63 18 157/54 98 02/18/18 07:26 02/18/18 07:26 02/18/18 09:51 02/18/18 07:26 02/18/18 07:30 Laboratory Results - last 24 hr 02/17/18 02/17/18 02/18/18 11:24 16:30 05:20 Hgb 8.7 L Hct 25 L Plt Count 161 MPV 8.1 INR (Anticoag Therapy) POC Glucose (mg/dL) 179 H 192 H 02/18/18 02/18/18 05:20 07:33 Hgb Hct Plt Count MPV INR (Anticoag Therapy) 2.21 H POC Glucose (mg/dL) 176 H Assessment: [POD 3 - LTHA ] Plan: [Hospitalists consult appreciated H&H and VS stable Cont PT/OT-WBAT Oxycodone and tylenol for pain DC lovenox, cont coumadin DVT prophylaxis DC to [facility] today F/U Dr. lobo 10-14 days post op
[2018-02-18 11:35] VITALS: BP 108/46
--- NOTE | 2018-02-18 21:17 | DS ---
DISCHARGE SUMMARY: DATE OF ADMISSION: 02/15/18 DATE OF DISCHARGE: 02/18/18 PROVIDER: Venecia Taylor MD* (dictated by VINEET Delgado). ADMITTING DIAGNOSIS: Status post left total hip arthroplasty for left hip osteoarthritis. SECONDARY DIAGNOSES: 1. Sleep apnea. 2. Spinal stenosis. 3. Diabetes. 4. Benign prostatic hypertrophy. 5. Chronic obstructive pulmonary disease. 6. Hypertension. 7. Esophageal strictures. 8. Osteoarthritis. 9. Asthma. 10. Bradycardia. CONSULTATIONS: PT/OT, Medicine. HISTORY OF PRESENT ILLNESS: Mr. 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 He failed conservative measures and agreed to undergo a left total hip arthroplasty with Dr. Taylor on 02/15/18. HOSPITAL COURSE: Mr. Healy was admitted to [facility] on 02/15/18. He underwent a left total hip arthroplasty. Postoperatively, he recovered on the short-stay surgical unit. Postop day 1, his Nath was removed and he was able to urinate on his own. He advanced to a regular diet without difficulty. His pain was controlled with oral Percocet and he was restarted on home medications. His labs and vitals remained stable. He was able to weight bear as tolerated on the left lower extremity. He advanced appropriately with physical therapy and occupational therapy. DVT prophylaxis was managed with Lovenox and Coumadin until he reached a therapeutic INR. By postop day 3, he was orthopedically and medically stable to discharge to the [facility] PMRU. DISCHARGE CONDITION: Stable. DISCHARGE MEDICATIONS: Home medications continued on discharge to include: 1. Symbicort 160/4.5 two puffs inhalation twice a day. 2. Albuterol 2 puffs inhalation every 4 hours as needed. 3. Aspirin was discontinued while on the Coumadin. 4. Pantoprazole 40 mg 1 by mouth every evening. 5. Magnesium 800 mg in the morning. 6. Losartan potassium 50 mg 1 tab by mouth in the morning. 7. Metformin 500 mg by mouth twice a day. 8. Singulair 10 mg by mouth in the evening. 9. Claritin 10 mg by mouth in the morning. 10. Zyloprim 300 mg by mouth in the morning. 11. Terazosin 5 mg in the morning. 12. Simvastatin 80 mg 1 tab in the evening. 13. Meloxicam 7.5 mg 1 by mouth in the morning, on hold while on Coumadin. 14. Gabapentin 300 mg by mouth in the evening. 15. Ketoconazole 2% 1 application twice a day. New medications on discharge to include: 1. Docusate sodium 10 mg by mouth 2 to 3 times a day as needed for constipation. 2. Percocet 5/325 mg 1 to 2 every 4 to 6 hours as needed for pain. 3. Coumadin 2 mg tablets 1 to 5 tabs at 5 o'clock every evening as directed by doctor. DISCHARGE INSTRUCTIONS: The patient is weightbearing as tolerated. It is okay for him to shower postop day 3. No bathing, swimming, or submerging the wound. Use gentle soap to pat dry, cover with gauze, Marcos and tape. Call the orthopedic office with increased drainage, redness, increased pain, or fever. Go to the ER with chest pain or shortness of breath. Diet: Regular diet. Increase fluids fiber to prevent constipation. Continue to use stool softener. Call the office if no bowel movement within 48 hours. He will continue posterior hip precautions. He should not cross his legs or bend his legs greater than 90 degrees. He will continue PT and OT. He will continue Coumadin for DVT prophylaxis. He should not take meloxicam or aspirin while on Coumadin. the PMRU. I recommended 2 mg on 02/18/18 and redraw on . For pain, continue pain control with Percocet. He will require antibiotics prior to any dental work in the future. He will follow up with Dr. Taylor 10 to 14 days postop. He should call the office with any questions or concerns. VINEET DELGADO [id number]/[facility] #: [id number] YUMIKO
== END 2018-02-18 12:03 | DRG 470 ==
LOC: AA 06:02 → SSU 11:44
PROVIDERS: ADMIT Orthopaedic Surgery Adult Reconstructive Orthopaedic Surgery; ATTEND Orthopaedic Surgery Adult Reconstructive Orthopaedic Surgery
PROC: 0QU507Z Supplement Left Acetabulum with Autologous Tissue Substitute, Open Approach (ICD-10-PCS; 2018-02-15)
PROC: 0QB50ZZ Excision of Left Acetabulum, Open Approach (ICD-10-PCS; 2018-02-15)
PROC: 0SRB02A Replacement of Left Hip Joint with Metal on Polyethylene Synthetic Substitute, Uncemented, Open Approach (ICD-10-PCS; principal; 2018-02-15 07:30)
DX: M16.0 Bilateral primary osteoarthritis of hip (principal); J90 Pleural effusion, not elsewhere classified; I10 Essential (primary) hypertension; E11.9 Type 2 diabetes mellitus without complications; M48.00 Spinal stenosis, site unspecified; N40.0 Benign prostatic hyperplasia without lower urinary tract symptoms; G47.33 Obstructive sleep apnea (adult) (pediatric); M10.9 Gout, unspecified; K21.9 Gastro-esophageal reflux disease without esophagitis; Z96.611 Presence of right artificial shoulder joint; M19.012 Primary osteoarthritis, left shoulder; M48.02 Spinal stenosis, cervical region; M50.20 Other cervical disc displacement, unspecified cervical region; J43.9 Emphysema, unspecified; E78.5 Hyperlipidemia, unspecified; H91.90 Unspecified hearing loss, unspecified ear; J45.40 Moderate persistent asthma, uncomplicated; M85.68 Other cyst of bone, other site; K22.2 Esophageal obstruction; S76.012A Strain of muscle, fascia and tendon of left hip, initial encounter; M25.752 Osteophyte, left hip; R53.83 Other fatigue; R00.1 Bradycardia, unspecified; Z80.9 Family history of malignant neoplasm, unspecified; Z72.89 Other problems related to lifestyle; Z98.49 Cataract extraction status, unspecified eye; Z80.7 Family history of other malignant neoplasms of lymphoid, hematopoietic and related tissues; Z85.828 Personal history of other malignant neoplasm of skin; Z79.01 Long term (current) use of anticoagulants; Z79.82 Long term (current) use of aspirin; Z79.84 Long term (current) use of oral hypoglycemic drugs
CPT/HCPCS: 36415; 80048; 85014; 85018; 85049; 85610; 94640; A9270-GY; C1713; C1776; G8978-GP-CM; G8979-GP-CJ; G8987-GO-CK; G8988-GO-CH; J0690; J1650; J2250; J2270; J2405; J2704; J3010

== ENCOUNTER 2018-02-18 11:52 | Inpatient (IN) | payer MEDICARE, BC ==
[2018-02-18] MEDS ORDERED: Magnesium Hydroxide LIQ* 30 ML UDC PO PRN (15:23)
[2018-02-18] MEDS ORDERED: Senna TAB PO PRN (15:23)
[2018-02-18] MEDS ORDERED: oxyCODONE TAB* 5 MG TAB PO PRN (15:28)
[2018-02-18] MEDS ORDERED: Dextrose 50% Syringe 50 ML* 25 GM/50 ML SYRINGE IV PUSH PRN (15:36)
[2018-02-18] MEDS ORDERED: Warfarin TAB(*) 2.5 MG PO SCH (17:00)
[2018-02-18] MEDS: Montelukast Sodium TAB* 10 MG PO SCH (17:02)
[2018-02-18] MEDS: Gabapentin CAP(*) 300 MG PO SCH (17:02)
[2018-02-18] MEDS: Insulin LISPRO* 1 UNITS UNIT SUBCUT SCH (17:03)
[2018-02-18] MEDS: Mometasone/Formoter 200/5 MDI INH SCH (20:35)
[2018-02-18] MEDS: Docusate CAP* 100 MG PO SCH (20:39)
[2018-02-18] MEDS: Acetaminophen TAB* 325 MG PO PRN (20:39)
--- NOTE | 2018-02-18 20:52 | HP ---
ADMISSION HISTORY AND PHYSICAL: DATE OF ADMISSION: 02/18/18 REASON FOR ADMISSION: Left total hip replacement. HISTORY OF PRESENT ILLNESS: Malik Healy is an 87-year-old male. He has a medical history significant for diabetes as well as sleep apnea and asthma. He has had ongoing difficulty with spinal stenosis as well. He was sent to Dr. Taylor because he was having trouble with his left hip. X-rays were taken, which showed severe end-stage arthritis. He had tried and failed conservative treatment. It was decided the best course of action would be for him to have a left total hip replacement. He was admitted to [facility] on and under a total hip replacement that day. Postoperatively, he has been stable. He was put on Coumadin for DVT prophylaxis. The patient does state he functionally thought he was doing better yesterday. The patient has physical therapy and occupational therapy needs. He is now being admitted for inpatient rehab so that he might return to independent living. PAST MEDICAL HISTORY: Significant for the aforementioned diabetes, spinal stenosis, sleep apnea. He has a history of asthma, prostatic hypertrophy, hypertension, gout. He has also had a right shoulder arthroscopy. CURRENT MEDICATIONS: Include: 1. Hytrin 10 mg daily. 2. He is on Singulair 10 mg every afternoon. 3. He takes Cozaar 50 mg in the morning. 4. He is on Dulera instead of his usual Symbicort. 5. Normally he takes an aspirin a day, but he is on Coumadin. 6. He is on ProAir HFA 2 puffs every 4 hours as needed. 7. Allopurinol 300 mg daily. 8. Oxycodone for pain relief. 9. Bowel medications. ALLERGIES: No known drug allergies. SOCIAL HISTORY: He has a cocktail a day. He does not smoke cigarettes. He lives with his in a 2-story house, but they stay on the first floor. There are 6 steps to enter. His son lives in the apartment upstairs. He has 2 other children living in [place]. REVIEW OF SYSTEMS: The patient reports no current shortness of breath or chest pain. PHYSICAL EXAMINATION VITAL SIGNS: The patient's temperature is 98.5, blood pressure is 149/41, pulse 72, respirations 16. HEENT: His extraocular movements were intact. Tongue is midline. NECK: Supple. LUNGS: Sound clear to auscultation bilaterally. HEART: Sounds were regular. S1 and S2 were audible. ABDOMEN: Soft and nontender. EXTREMITIES: He has trace edema at the left ankle. His wound appears to be clean and dry. NEUROLOGIC: He is awake, alert, oriented. Sensation appears to be intact in his feet, although he says they feel different. His muscle strength is 5/5 in both upper extremities, right leg is about 5/5, left leg is 3/5 secondary to pain. FUNCTIONAL EXAM: He transfers with minimal amount of assistance. ASSESSMENT: 1. Left total hip replacement. 2. Diabetes mellitus. PLAN: We are going to integrate him into a comprehensive and therapeutic rehab program with the following goals: 1. Physical Therapy will work with the patient. They are going to work on functional transfer training, ambulation training with a walker. 2. Occupational Therapy will see the patient, work on his activities of daily living including toileting and toilet transfers. 3. Coumadin for DVT prophylaxis. 4. Adequate analgesia. 5. His bowels will be regulated. 6. For his diabetes, we are going to do fingersticks before meals and sliding scale insulin coverage. We are going to restart his metformin in the morning. 7. We will restart his statin medication. 8. Continue Cozaar for hypertension. 9. For his asthma, we are going to continue his Dulera as well as his Singulair and HFA inhaler. 10. real estate services administrator will be closely involved to make sure that any services and equipment the patient requires are in place prior to discharge. 11. Home with appropriate services. ESTIMATED LENGTH OF STAY: 10 to 12 days. [id number]/[facility] #: [id number] YUMIKO
[2018-02-19 06:36] LABS: ABS Basophils 0 10^3/ul (0-0.2); ABS Eosinophils 0 10^3/ul (0-0.6); ABS Lymphocytes 1.2 10^3/ul (1.0-4.8); ABS Neutrophils 5.2 10^3/ul (1.5-7.7); ABS Nucleated RBC 0 10^3/ul; Eosinophil % 0.6 % (0-6); Hematocrit 23 % (42-52); Hemoglobin 8.2 g/dl (14.0-18.0); Mean Corpuscular HGB Conc 35 g/dl (31-36); Mean Corpuscular Hemoglobin 35 pg (27-31); Mean Corpuscular Volume 99 fL (80-94); Nucleated Red Blood Cells % 0; Platelet Count 194 10^3/ul (150-450); Red Blood Count 2.36 10^6/ul (4.00-5.40); Red Cell Distribution Width 14 % (10.5-15); White Blood Count 7.4 10^3/ul (3.5-10.8)
[2018-02-19 06:48] LABS: EGFR Non-African American 66.7 (>60)
[2018-02-19 06:54] LABS: INR 2.74 (0.77-1.02)
[2018-02-19] MEDS ORDERED: metFORMIN* 500 MG TAB PO SCH (08:00)
[2018-02-19] MEDS: Losartan TAB* 25 MG PO SCH (08:20)
[2018-02-19] MEDS: Docusate CAP* 100 MG PO SCH ×2 (08:21→20:50)
[2018-02-19] MEDS: Terazosin CAP* 5 MG PO SCH (08:21)
[2018-02-19] MEDS: Allopurinol TAB* 300 MG PO SCH (08:21)
[2018-02-19] MEDS: Insulin LISPRO* 1 UNITS UNIT SUBCUT SCH ×3 (08:22→17:10)
[2018-02-19] MEDS: Mometasone/Formoter 200/5 MDI INH SCH ×2 (09:03→20:51)
[2018-02-19] MEDS: Acetaminophen TAB* 325 MG PO PRN (09:20)
[2018-02-19] MEDS: oxyCODONE TAB* 5 MG TAB PO PRN ×2 (13:48→22:29)
--- NOTE | 2018-02-19 16:39 | PN ---
Progress Note Date of Service: 02/19/18 Note: MARY JANE CHIANG was visited. Therapy notes read and reviewed.He was able to have a bowel movement. He has a bit of pain. Metformin restarted, will increase to BID Current Medications: Active Medications Generic Name Dose Route Start Last Admin Trade Name Freq PRN Reason Stop Dose Admin Acetaminophen 650 mg 02/18/18 15:23 02/19/18 09:20 Tylenol Tab* PO 650 mg Q6H PRN Administration FEVER/PAIN Albuterol 2 puff 02/18/18 15:32 Ventolin Hfa Inhaler* INH Q4H PRN SOB/WHEEZING Allopurinol 300 mg 02/19/18 09:00 02/19/18 08:21 Zyloprim Tab* PO 300 mg DAILY HARMONY Administration Atorvastatin Calcium 20 mg 02/19/18 17:00 Lipitor* PO 1700 HARMONY Dextrose 12.5 gm 02/18/18 15:36 D50w Syringe 50 Ml* IV PUSH .FOR FS < 60 - SS PRN FS < 60 Docusate Sodium 100 mg 02/18/18 21:00 02/19/18 08:21 Colace Cap* PO 100 mg BID HARMONY Administration Gabapentin 300 mg 02/18/18 18:00 02/18/18 17:02 Neurontin Cap(*) PO 300 mg 1800 HARMONY Administration Insulin Human Lispro 0 - 5 units 02/18/18 16:30 02/19/18 12:55 Humalog* SUBCUT 1 units AC HARMONY Administration Protocol Losartan Potassium 50 mg 02/19/18 09:00 02/19/18 08:20 Cozaar Tab* PO 50 mg DAILY HARMONY Administration Magnesium Hydroxide 30 ml 02/18/18 15:23 Milk Of Magnesia Liq* PO Q6H PRN CONSTIPATION Metformin HCl 500 mg 02/19/18 08:00 02/19/18 08:21 Glucophage* PO 500 mg 0800 HARMONY Administration Mometasone Furoate/Formoterol Fumar 2 puff 02/18/18 21:00 02/19/18 09:03 Dulera 200/5 Mdi* INH 2 puff BID HARMONY Administration Montelukast Sodium 10 mg 02/18/18 18:00 02/18/18 17:02 Singulair Tab* PO 10 mg 1800 HARMONY Administration Oxycodone HCl 10 mg 08/12/18 15:28 Roxycodone Tab* PO Q4H PRN PAIN - SEVERE Oxycodone HCl 5 mg 02/18/18 15:30 02/19/18 13:48 Roxycodone Tab* PO 5 mg Q4H PRN Administration PAIN - MODERATE TO SEVERE Senna 2 tab 02/18/18 15:23 02/18/18 18:01 Senokot Tab* PO 2 tab BEDTIME PRN Administration CONSTIPATION Terazosin HCl 10 mg 02/19/18 09:00 02/19/18 08:21 Hytrin Cap* PO 10 mg DAILY HARMONY Administration Warfarin Sodium 3 mg 02/19/18 17:00 Coumadin Tab(*) PO DAILY@1700 [facility] Protocol Vital Signs: Vital Signs Temp Pulse Resp BP Pulse Ox 98.3 F 64 16 137/53 97 02/19/18 15:50 02/19/18 15:50 02/19/18 15:50 02/19/18 15:50 02/19/18 15:59 Lab Results: Laboratory Results - last 24 hr 02/18/18 02/19/18 02/19/18 16:39 06:11 06:11 WBC 7.4 RBC 2.36 L Hgb 8.2 L Hct 23 L MCV 99 H MCH 35 H MCHC 35 RDW 14 Plt Count 194 MPV 8.0 Neut % (Auto) 69.6 Lymph % (Auto) 16.0 L [place] % (Auto) 13.4 H Eos % (Auto) 0.6 Baso % (Auto) 0.4 Absolute Neuts (auto) 5.2 Absolute Lymphs (auto) 1.2 Absolute Monos (auto) 1.0 H Absolute Eos (auto) 0 Absolute Basos (auto) 0 Absolute Nucleated RBC 0 Nucleated RBC % 0 INR (Anticoag Therapy) 2.74 H Sodium Potassium Chloride Carbon Dioxide Anion Gap BUN Creatinine Est GFR ( Amer) Est GFR (Non-Af Amer) BUN/Creatinine Ratio Glucose POC Glucose (mg/dL) 206 H Calcium Total Bilirubin AST ALT Alkaline Phosphatase Total Protein Albumin Globulin Albumin/Globulin Ratio 02/19/18 06:11 WBC RBC Hgb Hct MCV MCH MCHC RDW Plt Count MPV Neut % (Auto) Lymph % (Auto) [place] % (Auto) Eos % (Auto) Baso % (Auto) Absolute Neuts (auto) Absolute Lymphs (auto) Absolute Monos (auto) Absolute Eos (auto) Absolute Basos (auto) Absolute Nucleated RBC Nucleated RBC % INR (Anticoag Therapy) Sodium 134 L Potassium 3.9 Chloride 104 Carbon Dioxide 24 Anion Gap 6 BUN 17 Creatinine 1.05 Est GFR ( Amer) 80.7 Est GFR (Non-Af Amer) 66.7 BUN/Creatinine Ratio 16.2 Glucose 154 H POC Glucose (mg/dL) Calcium 9.1 Total Bilirubin 0.50 AST 21 ALT 19 Alkaline Phosphatase 48 Total Protein 5.7 L Albumin 3.1 L Globulin 2.6 Albumin/Globulin Ratio 1.2 Exam: GENERAL: Alert, in no distress LUNGS: Clear bilaterally HEART: regular rhythm ABDOMEN: Soft, +BS EXTREMITIES: left hip wound C/D/I NEUROLOGIC: alert. Motor exam 3/5 left hip flexion, quads, otherwise 5/5. Diminished sensation in feet Assessment/Plan: 1. Left SORAYA: PT/OT. WBAT. 2. DM: Increase Metformin to BID. SSI 3. BPH: Hytrin 4. Asthma: Ventolin/Singulair/Dulera 5. DVT Prophylaxis: Coumadin 6. Advanced Directives: Full Code 02/19/18 16:39
[2018-02-19] MEDS ORDERED: Warfarin TAB(*) 3 MG PO SCH (17:00)
[2018-02-19] MEDS: Atorvastatin* 20 MG TAB PO SCH (17:06)
[2018-02-19] MEDS: metFORMIN* 500 MG TAB PO SCH (17:06)
[2018-02-19] MEDS: Gabapentin CAP(*) 300 MG PO SCH (18:10)
[2018-02-19] MEDS: Montelukast Sodium TAB* 10 MG PO SCH (18:10)
[2018-02-19] MEDS: Senna TAB PO SCH (20:50)
[2018-02-20 06:26] LABS: INR 2.89 (0.77-1.02)
[2018-02-20] MEDS: Acetaminophen TAB* 325 MG PO PRN ×2 (08:02→14:04)
[2018-02-20] MEDS: Insulin LISPRO* 1 UNITS UNIT SUBCUT SCH ×3 (08:03→17:33)
[2018-02-20] MEDS: metFORMIN* 500 MG TAB PO SCH ×2 (08:03→17:32)
[2018-02-20] MEDS: Docusate CAP* 100 MG PO SCH ×2 (08:03→19:45)
[2018-02-20] MEDS: Losartan TAB* 25 MG PO SCH (08:05)
[2018-02-20] MEDS: Allopurinol TAB* 300 MG PO SCH (08:06)
[2018-02-20] MEDS: Terazosin CAP* 5 MG PO SCH (08:10)
--- NOTE | 2018-02-20 12:23 | PMRUTEAM ---
PMRU: Team Meeting Current Status: Nursing: Current Status Skin Deviations [Buttocks] Other Skin Deviations [Left Hip] Incision Skin Deviation Description [ Increased redness to R inner buttock, blue barrier Buttocks] applied. Open area noted inbetween buttocks, orange barrier applied. Skin Deviation Description [ Dressing changed after shower. Telfa, 2 4x4's and Left Hip] paper tape. Physical Therapy: Current Status Bed Mobility Assistance Mod Assist Transfer Moblility Assistance Contact Guard Assist Transfer/Bed Mobility Rolling Walker Recommended Devices Ambulation Assistance Contact Guard Assist Ambulation Assistive Devices Rolling Walker Number of Feet Patient 15 Ambulated Stairs Assistance Not Tested Stairs Recommended Devices Two Rails Number of Stairs Occupational Therapy: Current Status Upper Body Dressing Supervision Lower Body Dressing Min Assist Bathing Min Assist Toileting Supervision Toilet Transfer Contact Guard Assist Shower Transfer Contact Guard Assist Eating Independent Rec Therapy: Current Status Summary of Assessment and RT assessment complete and pt. is aware of leisure Clinical Impression services. Treatment Goals Pt. will engage in leisure activities while on the unit. Treatment Plan Provide RT services and encourage involvement. Social Work: Current Status Discharge Plan Return home with home care svs and family support Potential for Family Training pt's son is involved and supportive Anticipated Discharge Home Destination Discharge With home care svs and family support Nutrition: Current Status Monitoring Pt s/p left total hip replacement 02/15; currently admitted to [facility] for rehab. Pt has hx of Type 2 DM , on Metformin at home. Pt currently receiving Metformin in addition to Humalog prn. He is also ordered for a consistent carbohydrate diet. FS (-): 159-188. Pt seen by RDN during acute admission (02/16), and he reported good glycemic control at home. No new education needs identified , although will remain available as indicated. Per chart, intake since admission has been good ( consistently 100% of meals). Anticipate overall intake to be adequate. No GI s/sx, such as N/V, noted. Pt has hx of esophageal stricture, although he denied acute swallowing difficulties to RDN . Per nursing assessment, pt w/o difficulty chewing/swallowing. Regular diet textures appropriate at this time. Recommend ORDAINED MINISTER evaluation as indicated. Per chart, pt w/o pressure related skin breakdown. Last BM documented 02/19. Pt receiving bowel meds. Additional labs reviewed (); electrolytes WNL. Pt newly ordered for coumadin 02/15; education regarding coumadin/Vitamin K interaction provided 02/16. Will monitor pt's progress and remain available as indicated. Goals: Physical Therapy: Updated Goals Transfer/Bed Mobility Rolling Walker Recommended Devices Occupational Therapy: Initial Goals Goals to be Completed in (Days 7-10 ) Upper Body Bathing Routine Modified Independent with Lower Body Bathing Routine Modified Independent with Upper Body Dressing Routine Independent Lower Body Dressing Routine Modified Independent with Toilet Hygeine and Clothing Modified Independent with Management Routine Toilet Transfer Routine Modified Independent with Tub Transfer Routine Modified Independent with Functional Transfers for ADL Modified Independent with Grooming Routine Independent Feeding Routine Independent Nutrition: Goals Intervention Goals 1. Adequate PO intake to maintain lean body mass and hydration w/o promoting undesired weight loss 2. Pt will tolerate regular diet textues w/o difficulty swallowing due to hx esophageal stricture 3. Adequate glycemic control per inpatient parameters (goal < 180) 4. Maintain regularity of BM w/o constipation or diarrhea 5. Questions regarding coumadin/vitamin K interaction will be answered prior to dc Social Work: Goals Discharge Plan Return home with home care svs and family support Potential for Family Training pt's son is involved and supportive Anticipated Discharge Home Destination Discharge With home care svs and family support Care Plan: Care Plan Coping/Psych-Improve/Maintain Start: 02/19/18 01:21 Freq: QSHIFT Status: Active Target: Protocol: Activity Type Activity Date Activity User E-Sign Co-Sign Detail Recorded Client Recorded Date Recorded By Document 02/20/18 08:00 [id number] 02/20/18 10:50 [id number] 02/20/18 08:00 PMRU Outcome: Coping/Psychosocial Coping Outcome/Goals Verbalization of Acceptance of Rehab Admit Psychosocial Outcome/Goals Maintain/ Improve Emotional Health Cooperate/ Participate in Plan Progression Toward Outcome/Goals - Progressing Coping Progression Toward Outcome/Goals - Progressing Psychosocial DVT Prophylaxis- Improve/Maintain Start: 02/19/18 01:21 Freq: QSHIFT Status: Active Target: Protocol: Activity Type Activity Date Activity User E-Sign Co-Sign Detail Recorded Client Recorded Date Recorded By Document 02/20/18 08:00 [id number] 02/20/18 10:50 [id number] 02/20/18 08:00 PMRU Outcome: DVT Prophylaxis Outcome/Goals Remains Free of DVT TEDS Stockings on Every AM, Off at HS Progression Toward Outcome/Goals Progressing Discharge Planning - Improve/Maintain Start: 02/19/18 01:21 Freq: DAILY Status: Active Target: Protocol: Activity Type Activity Date Activity User E-Sign Co-Sign Detail Recorded Client Recorded Date Recorded By Document 02/20/18 01:09 [id number] 02/20/18 01:09 [id number] 02/20/18 01:09 PMRU Outcome: Discharge Planning Update Patient Family No Outcome/Goals Demonstrates Understanding of Discharge Plan Education-Improve/Maintain Start: 02/19/18 01:21 Freq: QSHIFT Status: Active Target: Protocol: Activity Type Activity Date Activity User E-Sign Co-Sign Detail Recorded Client Recorded Date Recorded By Document 02/20/18 08:00 [id number] 02/20/18 10:50 [id number] 02/20/18 08:00 PMRU Outcome: Education Outcome/Goals Demonstrate/ Verbalize Understanding of Written Discharge Instructions Demonstrates Skills Encourage Questions Progression Toward Outcome/Goals Progressing /GI-Improve/Maintain Start: 02/19/18 01:21 Freq: QSHIFT Status: Active Target: Protocol: Activity Type Activity Date Activity User E-Sign Co-Sign Detail Recorded Client Recorded Date Recorded By Document 02/20/18 08:00 [id number] 02/20/18 10:50 [id number] 02/20/18 08:00 PMRU Outcome: Genitourinary/ Gastrointestinal Genitourinary- Outcome/Goals Maintain/ Achieve Urinary Continence Gastrointestinal-Outcome/Goals Prevent Constipation Bowel Regularity at Home Laxatives as Ordered Progression Toward Outcome/Goals - Progressing Progression Toward Outcome/Goals - GI Progressing Medication Administration Start: 02/19/18 01:21 Freq: QSHIFT Status: Active Target: Protocol: Activity Type Activity Date Activity User E-Sign Co-Sign Detail Recorded Client Recorded Date Recorded By Document 02/20/18 08:00 [id number] 02/20/18 10:50 [id number] 02/20/18 08:00 PMRU Outcome: Medication Administration Assess Patient Knowledge/Teach Med No Education for all Meds Outcome/Goals Patient Independent with Medication Administration at Home Demonstrates Understanding Progression Towards Outcome/Goals Progressing Is Patient Going Home on Lovenox? No Metabolic Status- Improve/Maintain Start: 02/19/18 01:21 Freq: QSHIFT Status: Active Target: Protocol: Activity Type Activity Date Activity User E-Sign Co-Sign Detail Recorded Client Recorded Date Recorded By Document 02/20/18 08:00 [id number] 02/20/18 10:50 [id number] 02/20/18 08:00 PMRU Outcome: Metabolic Status Have Fingersticks Been Ordered Yes Fingerstick Order Frequency Other Outcome/Goals Maintain/ Improve Metabolic Status Progression Toward Outcome/Goals Progressing Neurological- Improve/Maintain Start: 02/19/18 01:21 Freq: QSHIFT Status: Active Target: Protocol: Activity Type Activity Date Activity User E-Sign Co-Sign Detail Recorded Client Recorded Date Recorded By Document 02/20/18 08:00 [id number] 02/20/18 10:50 [id number] 02/20/18 08:00 PMRU Outcome: Neurological Weakness/Aphasia Weakness Left Side Weakness/Aphasia Comment L total hip Outcome/Goals Maintain/ Achieve Baseline Neurological Status Prevent Avoidable Neurological Decline Maintain/ Improve Strength/ROM Progression Toward Outcome/Goals Progressing Pain/Comfort- Improve/Maintain Start: 02/19/18 01:21 Freq: QSHIFT Status: Active Target: Protocol: Activity Type Activity Date Activity User E-Sign Co-Sign Detail Recorded Client Recorded Date Recorded By Document 02/20/18 08:00 [id number] 02/20/18 10:50 [id number] 02/20/18 08:00 PMRU Outcome: Pain/Comfort Outcome/Goals Demonstrates Knowledge and Use of Available Comfort Measures Achieves Acceptable Comfort/Pain Level as Determined by Patient/Condit Maintain Comfort Level Allowing Patient to Fully Participate in Rehab Progression Toward Outcome/Goals Progressing Safety- Improve/Maintain Start: 02/19/18 01:21 Freq: QSHIFT Status: Active Target: Protocol: Activity Type Activity Date Activity User E-Sign Co-Sign Detail Recorded Client Recorded Date Recorded By Document 02/20/18 08:00 [id number] 02/20/18 10:50 [id number] 02/20/18 08:00 PMRU Outcome: Safety Outcome/Goals Remain Free of Injury or Harm Cooperates with Safety Measures for Least Restrictive Environment Prevent Falls/ Injury Progression Toward Outcome/Goals Progressing Outcome/Goals Met Comment Personal arm in place Skin- Improve/Maintain Start: 02/19/18 01:21 Freq: QSHIFT Status: Active Target: Protocol: Activity Type Activity Date Activity User E-Sign Co-Sign Detail Recorded Client Recorded Date Recorded By Document 02/20/18 08:00 [id number] 02/20/18 10:50 [id number] 02/20/18 08:00 PMRU Outcome: Skin Skin Risk Level High Skin Orders Dressing Change Air Mattress Turn/Position q2hr While in Bed Dressing Change Comments Dressing changed after shower, telfa 2 4x4's applied. Outcome/Goals Maintain/ Improve Skin Intergrity Surgical Incisions Healing Progression Toward Outcome/Goals Progressing Medicine Note: Length of Stay: 8 days Anticipated Discharge Destination: Home Tentative Discharge Date: 02/28/18 Discharged to: Home
[2018-02-20] MEDS: Mometasone/Formoter 200/5 MDI INH SCH ×2 (13:58→19:58)
--- NOTE | 2018-02-20 16:28 | PN ---
Progress Note Date of Service: 02/20/18 Note: MARY JANE CHIANG was visited. Therapy notes read and reviewed. He was discussed in interdisciplinary team rounds. He had a BM today and then got woozy; he has anew cough but no fever. Current Medications: Active Medications Generic Name Dose Route Start Last Admin Trade Name Freq PRN Reason Stop Dose Admin Acetaminophen 650 mg 02/18/18 15:23 02/20/18 14:04 Tylenol Tab* PO 650 mg Q6H PRN Administration FEVER/PAIN Albuterol 2 puff 02/18/18 15:32 Ventolin Hfa Inhaler* INH Q4H PRN SOB/WHEEZING Allopurinol 300 mg 02/19/18 09:00 02/20/18 08:06 Zyloprim Tab* PO 300 mg DAILY [facility] Administration Atorvastatin Calcium 20 mg 02/19/18 17:00 02/19/18 17:06 Lipitor* PO 20 mg 1700 [facility] Administration Dextrose 12.5 gm 02/18/18 15:36 D50w Syringe 50 Ml* IV PUSH .FOR FS < 60 - SS PRN FS < 60 Docusate Sodium 100 mg 02/18/18 21:00 02/20/18 08:03 Colace Cap* PO 100 mg BID [facility] Administration Gabapentin 300 mg 02/18/18 18:00 02/19/18 18:10 Neurontin Cap(*) PO 300 mg 1800 [facility] Administration Insulin Human Lispro 0 - 5 units 02/18/18 16:30 02/20/18 12:20 Humalog* SUBCUT 1 units AC [facility] Administration Protocol Losartan Potassium 50 mg 02/19/18 09:00 02/20/18 08:05 Cozaar Tab* PO 50 mg DAILY [facility] Administration Magnesium Hydroxide 30 ml 02/18/18 15:23 Milk Of Magnesia Liq* PO Q6H PRN CONSTIPATION Metformin HCl 500 mg 02/19/18 17:00 02/20/18 08:03 Glucophage* PO 500 mg 0800,1700 [facility] Administration Mometasone Furoate/Formoterol Fumar 2 puff 02/18/18 21:00 02/20/18 13:58 Dulera 200/5 Mdi* INH Not Given BID [facility] Montelukast Sodium 10 mg 02/18/18 18:00 02/19/18 18:10 Singulair Tab* PO 10 mg 1800 [facility] Administration Oxycodone HCl 10 mg 02/18/18 15:28 Roxycodone Tab* PO Q4H PRN PAIN - SEVERE Oxycodone HCl 5 mg 02/18/18 15:30 02/19/18 22:29 Roxycodone Tab* PO 5 mg Q4H PRN Administration PAIN - MODERATE TO SEVERE Senna 2 tab 02/19/18 21:00 02/19/18 20:50 Senokot Tab* PO 2 tab BEDTIME [facility] Administration Terazosin HCl 10 mg 02/19/18 09:00 02/20/18 08:10 Hytrin Cap* PO 10 mg DAILY [facility] Administration Warfarin Sodium 2 mg 02/20/18 17:00 Coumadin Tab(*) PO DAILY@1700 [facility] Protocol Vital Signs: Vital Signs Temp Pulse Resp BP Pulse Ox 98.4 F 67 16 140/46 100 02/20/18 15:50 02/20/18 15:50 02/20/18 15:50 02/20/18 15:50 02/20/18 15:50 Lab Results: Laboratory Results - last 24 hr 02/19/18 02/19/18 02/19/18 08:02 12:17 16:42 INR (Anticoag Therapy) POC Glucose (mg/dL) 179 H 188 H 178 H 02/20/18 02/20/18 02/20/18 06:03 07:18 12:14 INR (Anticoag Therapy) 2.89 H POC Glucose (mg/dL) 159 H 155 H Exam: GENERAL: Alert, in no distress LUNGS: Scattered rhonchi HEART: regular rhythm ABDOMEN: Soft, +BS EXTREMITIES: left hip wound C/D/I NEUROLOGIC: alert. Motor exam 3/5 left hip flexion, quads, otherwise 5/5. Diminished sensation in feet Assessment/Plan: 1. Left SORAYA: PT/OT. WBAT. 2. DM: Increase Metformin to BID. SSI 3. BPH: Hytrin 4. COPD: Ventolin/Singulair/Dulera 5. DVT Prophylaxis: Coumadin 6. Advanced Directives: Full Code 7. Cough: check CXR 02/20/18 16:29
[2018-02-20] MEDS ORDERED: Warfarin TAB(*) 2 MG PO SCH (17:00)
[2018-02-20] MEDS: Atorvastatin* 20 MG TAB PO SCH (17:32)
[2018-02-20] MEDS: Gabapentin CAP(*) 300 MG PO SCH (18:42)
[2018-02-20] MEDS: Montelukast Sodium TAB* 10 MG PO SCH (18:43)
--- NOTE | 2018-02-20 19:37 | RAD ---
INDICATION: Cough COMPARISON: February 05, 2018 TECHNIQUE: PA and lateral dual-energy views were obtained. FINDINGS: Bones/Soft Tissues: There are no acute bony findings. There is right shoulder arthroplasty Cardiomediastinal: The cardiomediastinal silhouette is normal. Lungs: There are no infiltrates. There is mild hyperinflation Pleura: There are no pleural effusions. Other: None IMPRESSION: HYPERINFLATION. NO ACTIVE DISEASE.
[2018-02-20] MEDS: Senna TAB PO SCH (19:45)
[2018-02-20] MEDS: oxyCODONE TAB* 5 MG TAB PO PRN (19:58)
[2018-02-21 05:18] LABS: ABS Basophils 0 10^3/ul (0-0.2); ABS Eosinophils 0.1 10^3/ul (0-0.6); ABS Lymphocytes 1.5 10^3/ul (1.0-4.8); ABS Monocytes 0.9 10^3/ul (0-0.8); ABS Neutrophils 4.3 10^3/ul (1.5-7.7); ABS Nucleated RBC 0 10^3/ul; Eosinophil % 1.3 % (0-6); Hematocrit 23 % (42-52); Hemoglobin 7.9 g/dl (14.0-18.0); Lymphocyte % 22.4 % (25-47); Mean Corpuscular HGB Conc 35 g/dl (31-36); Mean Corpuscular Hemoglobin 34 pg (27-31); Mean Corpuscular Volume 99 fL (80-94); Mean Platelet Volume 7.5 um3 (7.4-10.4); Nucleated Red Blood Cells % 0; Platelet Count 232 10^3/ul (150-450); Red Cell Distribution Width 14 % (10.5-15); White Blood Count 6.9 10^3/ul (3.5-10.8)
[2018-02-21 05:23] LABS: INR 3.13 (0.77-1.02)
[2018-02-21] MEDS: metFORMIN* 500 MG TAB PO SCH ×2 (08:04→17:15)
[2018-02-21] MEDS: Losartan TAB* 25 MG PO SCH (08:04)
[2018-02-21] MEDS: Docusate CAP* 100 MG PO SCH ×2 (08:04→20:01)
[2018-02-21] MEDS: Terazosin CAP* 5 MG PO SCH (08:04)
[2018-02-21] MEDS: Allopurinol TAB* 300 MG PO SCH (08:04)
[2018-02-21] MEDS: Insulin LISPRO* 1 UNITS UNIT SUBCUT SCH ×3 (08:04→17:15)
[2018-02-21] MEDS: Acetaminophen TAB* 325 MG PO PRN (08:05)
[2018-02-21] MEDS: Mometasone/Formoter 200/5 MDI INH SCH ×2 (09:45→20:20)
[2018-02-21] MEDS: oxyCODONE TAB* 5 MG TAB PO PRN ×2 (11:03→19:59)
[2018-02-21] MEDS: Atorvastatin* 20 MG TAB PO SCH (17:15)
[2018-02-21] MEDS: Montelukast Sodium TAB* 10 MG PO SCH (17:55)
[2018-02-21] MEDS: Gabapentin CAP(*) 300 MG PO SCH (17:55)
[2018-02-21] MEDS: Albuterol HFA INHALER* 8 gm MDI INH PRN (20:00)
[2018-02-21] MEDS: Senna TAB PO SCH (20:01)
--- NOTE | 2018-02-21 21:32 | PN ---
Progress Note Date of Service: 02/21/18 Note: MARY JANE CHIANG was visited. Therapy notes read and reviewed. He is doing ok, but had another episode of dizziness while working with therapy. His Hb is down to 7.9 and his INR is rising, will hold Coumadin. For the episodes will cut Hytrin to 5 Current Medications: Active Medications Generic Name Dose Route Start Last Admin Trade Name Freq PRN Reason Stop Dose Admin Acetaminophen 650 mg 02/18/18 15:23 02/21/18 08:05 Tylenol Tab* PO 650 mg Q6H PRN Administration FEVER/PAIN Albuterol 2 puff 02/18/18 15:32 Ventolin Hfa Inhaler* INH Q4H PRN SOB/WHEEZING Allopurinol 300 mg 02/19/18 09:00 02/21/18 08:04 Zyloprim Tab* PO 300 mg DAILY [facility] Administration Atorvastatin Calcium 20 mg 02/19/18 17:00 02/21/18 17:15 Lipitor* PO 20 mg 1700 [facility] Administration Dextrose 12.5 gm 02/18/18 15:36 D50w Syringe 50 Ml* IV PUSH .FOR FS < 60 - SS PRN FS < 60 Docusate Sodium 100 mg 02/18/18 21:00 02/21/18 20:01 Colace Cap* PO 100 mg BID [facility] Administration Gabapentin 300 mg 02/18/18 18:00 02/21/18 17:55 Neurontin Cap(*) PO 300 mg 1800 [facility] Administration Insulin Human Lispro 0 - 5 units 02/18/18 16:30 02/21/18 17:15 Humalog* SUBCUT 1 units AC [facility] Administration Protocol Losartan Potassium 50 mg 02/19/18 09:00 02/21/18 08:04 Cozaar Tab* PO 50 mg DAILY [facility] Administration Magnesium Hydroxide 30 ml 02/18/18 15:23 Milk Of Magnesia Liq* PO Q6H PRN CONSTIPATION Metformin HCl 500 mg 02/19/18 17:00 02/21/18 17:15 Glucophage* PO 500 mg 0800,1700 [facility] Administration Mometasone Furoate/Formoterol Fumar 2 puff 02/18/18 21:00 02/21/18 20:20 Dulera 200/5 Mdi* INH 2 puff BID [facility] Administration Montelukast Sodium 10 mg 02/18/18 18:00 02/21/18 17:55 Singulair Tab* PO 10 mg 1800 [facility] Administration Oxycodone HCl 10 mg 02/18/18 15:28 Roxycodone Tab* PO Q4H PRN PAIN - SEVERE Oxycodone HCl 5 mg 02/18/18 15:30 02/21/18 19:59 Roxycodone Tab* PO 5 mg Q4H PRN Administration PAIN - MODERATE TO SEVERE Senna 2 tab 02/19/18 21:00 02/21/18 20:01 Senokot Tab* PO Not Given BEDTIME [facility] Terazosin HCl 5 mg 02/22/18 09:00 Hytrin Cap* PO DAILY [facility] Vital Signs: Vital Signs Temp Pulse Resp BP Pulse Ox 98.5 F 68 18 131/49 100 02/21/18 15:41 02/21/18 15:41 02/21/18 21:14 02/21/18 15:41 02/21/18 16:14 Lab Results: Laboratory Results - last 24 hr 02/21/18 02/21/18 02/21/18 05:04 05:04 07:27 WBC 6.9 RBC 2.30 L Hgb 7.9 L Hct 23 L MCV 99 H MCH 34 H MCHC 35 RDW 14 Plt Count 232 MPV 7.5 Neut % (Auto) 62.4 Lymph % (Auto) 22.4 L [place] % (Auto) 13.4 H Eos % (Auto) 1.3 Baso % (Auto) 0.5 Absolute Neuts (auto) 4.3 Absolute Lymphs (auto) 1.5 Absolute Monos (auto) 0.9 H Absolute Eos (auto) 0.1 Absolute Basos (auto) 0 Absolute Nucleated RBC 0 Nucleated RBC % 0 INR (Anticoag Therapy) 3.13 H POC Glucose (mg/dL) 165 H 02/21/18 02/21/18 12:03 16:32 WBC RBC Hgb Hct MCV MCH MCHC RDW Plt Count MPV Neut % (Auto) Lymph % (Auto) [place] % (Auto) Eos % (Auto) Baso % (Auto) Absolute Neuts (auto) Absolute Lymphs (auto) Absolute Monos (auto) Absolute Eos (auto) Absolute Basos (auto) Absolute Nucleated RBC Nucleated RBC % INR (Anticoag Therapy) POC Glucose (mg/dL) 153 H 165 H Exam: GENERAL: Alert, in no distress LUNGS: Scattered rhonchi HEART: regular rhythm ABDOMEN: Soft, +BS EXTREMITIES: left hip wound C/D/I NEUROLOGIC: alert. Motor exam 3/5 left hip flexion, quads, otherwise 5/5. Diminished sensation in feet Assessment/Plan: 1. Left SORAYA: PT/OT. WBAT. 2. DM: Metformin 500 BID. SSI 3. BPH: Hytrin, will cut to 5 4. COPD: Ventolin/Singulair/Dulera 5. DVT Prophylaxis: Coumadin 6. Advanced Directives: Full Code 7. Cough: CXR clear 02/21/18 21:35
[2018-02-22 06:21] LABS: Hematocrit 22 % (42-52); Hemoglobin 7.8 g/dl (14.0-18.0); Mean Corpuscular HGB Conc 35 g/dl (31-36); Mean Corpuscular Hemoglobin 34 pg (27-31); Mean Corpuscular Volume 99 fL (80-94); Mean Platelet Volume 7.4 um3 (7.4-10.4); Platelet Count 264 10^3/ul (150-450); Red Blood Count 2.27 10^6/ul (4.00-5.40); Red Cell Distribution Width 14 % (10.5-15); White Blood Count 6.3 10^3/ul (3.5-10.8)
[2018-02-22 06:29] LABS: INR 2.4 (0.77-1.02)
[2018-02-22] MEDS: Mometasone/Formoter 200/5 MDI INH SCH ×2 (07:34→20:58)
[2018-02-22] MEDS: Insulin LISPRO* 1 UNITS UNIT SUBCUT SCH ×3 (08:13→16:46)
[2018-02-22] MEDS: metFORMIN* 500 MG TAB PO SCH ×2 (08:15→16:46)
[2018-02-22] MEDS: Terazosin CAP* 5 MG PO SCH (08:15)
[2018-02-22] MEDS: Losartan TAB* 25 MG PO SCH (08:15)
[2018-02-22] MEDS: Allopurinol TAB* 300 MG PO SCH (08:16)
[2018-02-22] MEDS: Docusate CAP* 100 MG PO SCH ×2 (08:16→20:51)
[2018-02-22] MEDS: oxyCODONE TAB* 5 MG TAB PO PRN (13:21)
[2018-02-22] MEDS: Atorvastatin* 20 MG TAB PO SCH (16:46)
[2018-02-22] MEDS: Gabapentin CAP(*) 300 MG PO SCH (17:52)
[2018-02-22] MEDS: Montelukast Sodium TAB* 10 MG PO SCH (17:52)
--- NOTE | 2018-02-22 20:06 | PN ---
Progress Note Date of Service: 02/22/18 Note: MARY JANE CHIANG was visited. Therapy notes read and reviewed. No further episodes of dizziness on lower dose of Hytrin. His Hemoglobin slightly lower. WIll hold Coumadin and see if it stabilizes. Will not transfuse yet Current Medications: Active Medications Generic Name Dose Route Start Last Admin Trade Name Freq PRN Reason Stop Dose Admin Acetaminophen 650 mg 02/18/18 15:23 02/21/18 08:05 Tylenol Tab* PO 650 mg Q6H PRN Administration FEVER/PAIN Albuterol 2 puff 02/18/18 15:32 Ventolin Hfa Inhaler* INH Q4H PRN SOB/WHEEZING Allopurinol 300 mg 02/19/18 09:00 02/22/18 08:16 Zyloprim Tab* PO 300 mg DAILY [facility] Administration Atorvastatin Calcium 20 mg 02/19/18 17:00 02/22/18 16:46 Lipitor* PO 20 mg 1700 [facility] Administration Dextrose 12.5 gm 02/18/18 15:36 D50w Syringe 50 Ml* IV PUSH .FOR FS < 60 - SS PRN FS < 60 Docusate Sodium 100 mg 02/18/18 21:00 02/22/18 08:16 Colace Cap* PO 100 mg BID [facility] Administration Gabapentin 300 mg 02/18/18 18:00 02/22/18 17:52 Neurontin Cap(*) PO 300 mg 1800 [facility] Administration Insulin Human Lispro 0 - 5 units 02/18/18 16:30 02/22/18 16:46 Humalog* SUBCUT 1 units AC [facility] Administration Protocol Losartan Potassium 50 mg 02/19/18 09:00 02/22/18 08:15 Cozaar Tab* PO 50 mg DAILY [facility] Administration Magnesium Hydroxide 30 ml 02/18/18 15:23 Milk Of Magnesia Liq* PO Q6H PRN CONSTIPATION Metformin HCl 500 mg 02/19/18 17:00 02/22/18 16:46 Glucophage* PO 500 mg 0800,1700 [facility] Administration Mometasone Furoate/Formoterol Fumar 2 puff 02/18/18 21:00 02/22/18 07:34 Dulera 200/5 Mdi* INH 2 puff BID [facility] Administration Montelukast Sodium 10 mg 02/18/18 18:00 02/22/18 17:52 Singulair Tab* PO 10 mg 1800 [facility] Administration Oxycodone HCl 10 mg 02/18/18 15:28 Roxycodone Tab* PO Q4H PRN PAIN - SEVERE Oxycodone HCl 5 mg 02/18/18 15:30 02/22/18 13:21 Roxycodone Tab* PO 5 mg Q4H PRN Administration PAIN - MODERATE TO SEVERE Senna 2 tab 02/19/18 21:00 02/21/18 20:01 Senokot Tab* PO Not Given BEDTIME [facility] Terazosin HCl 5 mg 02/22/18 09:00 02/22/18 08:15 Hytrin Cap* PO 5 mg DAILY [facility] Administration Vital Signs: Vital Signs Temp Pulse Resp BP Pulse Ox 98.3 F 66 18 133/51 100 02/22/18 16:04 02/22/18 16:04 02/22/18 17:52 02/22/18 16:04 02/22/18 16:51 Lab Results: Laboratory Results - last 24 hr 02/22/18 02/22/18 02/22/18 06:03 06:03 07:40 WBC 6.3 RBC 2.27 L Hgb 7.8 L Hct 22 L MCV 99 H MCH 34 H MCHC 35 RDW 14 Plt Count 264 MPV 7.4 INR (Anticoag Therapy) 2.40 H POC Glucose (mg/dL) 140 H 02/22/18 02/22/18 12:06 16:34 WBC RBC Hgb Hct MCV MCH MCHC RDW Plt Count MPV INR (Anticoag Therapy) POC Glucose (mg/dL) 149 H 154 H Exam: GENERAL: Alert, in no distress LUNGS: Scattered rhonchi HEART: regular rhythm ABDOMEN: Soft, +BS EXTREMITIES: left hip wound C/D/I NEUROLOGIC: alert. Motor exam 3/5 left hip flexion, quads, otherwise 5/5. Diminished sensation in feet Assessment/Plan: 1. Left SORAYA: PT/OT. WBAT. 2. DM: Metformin 500 BID. SSI 3. BPH: Hytrin, now 5mg 4. COPD: Ventolin/Singulair/Dulera 5. DVT Prophylaxis: Coumadin 6. Advanced Directives: Full Code 02/22/18 20:06
[2018-02-22] MEDS: Acetaminophen TAB* 325 MG PO PRN (20:50)
[2018-02-22] MEDS: Senna TAB PO SCH (20:51)
[2018-02-23 06:51] LABS: INR 1.88 (0.77-1.02)
[2018-02-23] MEDS: Losartan TAB* 25 MG PO SCH (08:10)
[2018-02-23] MEDS: Docusate CAP* 100 MG PO SCH ×2 (08:10→20:20)
[2018-02-23] MEDS: metFORMIN* 500 MG TAB PO SCH ×2 (08:10→17:13)
[2018-02-23] MEDS: Insulin LISPRO* 1 UNITS UNIT SUBCUT SCH ×3 (08:11→17:13)
[2018-02-23] MEDS: oxyCODONE TAB* 5 MG TAB PO PRN (08:11)
[2018-02-23] MEDS: Terazosin CAP* 5 MG PO SCH (08:13)
[2018-02-23] MEDS: Allopurinol TAB* 300 MG PO SCH (08:13)
[2018-02-23 09:05] LABS: Hematocrit 26 % (42-52); Hemoglobin 8.9 g/dl (14.0-18.0); Mean Corpuscular HGB Conc 35 g/dl (31-36); Mean Corpuscular Hemoglobin 35 pg (27-31); Mean Corpuscular Volume 100 fL (80-94); Mean Platelet Volume 7.1 um3 (7.4-10.4); Platelet Count 331 10^3/ul (150-450); Red Blood Count 2.57 10^6/ul (4.00-5.40); Red Cell Distribution Width 14 % (10.5-15); White Blood Count 7.7 10^3/ul (3.5-10.8)
[2018-02-23 09:41] LABS: ABS Basophils 0.1 10^3/ul (0-0.2); ABS Eosinophils 0.1 10^3/ul (0-0.6); ABS Lymphocytes 1.3 10^3/ul (1.0-4.8); ABS Monocytes 0.6 10^3/ul (0-0.8); ABS Neutrophils 5.6 10^3/ul (1.5-7.7); ABS Nucleated RBC 0 10^3/ul; Eosinophil % 0.9 % (0-6); Lymphocyte % 17.3 % (25-47); Nucleated Red Blood Cells % 0
--- NOTE | 2018-02-23 10:57 | PN ---
Progress Note Date of Service: 02/23/18 Note: MARY JANE CHIANG was visited. Nursing and therapy notes read and reviewed. No chest pain, shortness of breath or abdominal pain. He felt light-headed after being up cleaning up standing with OT. He felt better after he sat down. Later when he stood back up he felt ok. Current Medications: Active Medications Generic Name Dose Route Start Last Admin Trade Name Freq PRN Reason Stop Dose Admin Acetaminophen 650 mg 02/18/18 15:23 02/22/18 20:50 Tylenol Tab* PO 650 mg Q6H PRN Administration FEVER/PAIN Albuterol 2 puff 02/18/18 15:32 Ventolin Hfa Inhaler* INH Q4H PRN SOB/WHEEZING Allopurinol 300 mg 02/19/18 09:00 02/23/18 08:13 Zyloprim Tab* PO 300 mg DAILY [facility] Administration Atorvastatin Calcium 20 mg 02/19/18 17:00 02/22/18 16:46 Lipitor* PO 20 mg 1700 [facility] Administration Dextrose 12.5 gm 02/18/18 15:36 D50w Syringe 50 Ml* IV PUSH .FOR FS < 60 - SS PRN FS < 60 Docusate Sodium 100 mg 02/18/18 21:00 02/23/18 08:10 Colace Cap* PO 100 mg BID [facility] Administration Gabapentin 300 mg 02/18/18 18:00 02/22/18 17:52 Neurontin Cap(*) PO 300 mg 1800 [facility] Administration Insulin Human Lispro 0 - 5 units 02/18/18 16:30 02/23/18 08:11 Humalog* SUBCUT 1 units AC [facility] Administration Protocol Losartan Potassium 50 mg 02/19/18 09:00 02/23/18 08:10 Cozaar Tab* PO 50 mg DAILY [facility] Administration Magnesium Hydroxide 30 ml 02/18/18 15:23 Milk Of Magnesia Liq* PO Q6H PRN CONSTIPATION Metformin HCl 500 mg 02/19/18 17:00 02/23/18 08:10 Glucophage* PO 500 mg 0800,1700 [facility] Administration Mometasone Furoate/Formoterol Fumar 2 puff 02/18/18 21:00 02/22/18 20:58 Dulera 200/5 Mdi* INH 2 puff BID [facility] Administration Montelukast Sodium 10 mg 02/18/18 18:00 02/22/18 17:52 Singulair Tab* PO 10 mg 1800 [facility] Administration Oxycodone HCl 10 mg 02/18/18 15:28 Roxycodone Tab* PO Q4H PRN PAIN - SEVERE Oxycodone HCl 5 mg 02/18/18 15:30 02/23/18 08:11 Roxycodone Tab* PO 5 mg Q4H PRN Administration PAIN - MODERATE TO SEVERE Senna 2 tab 02/19/18 21:00 02/22/18 20:51 Senokot Tab* PO 2 tab BEDTIME [facility] Administration Terazosin HCl 5 mg 02/22/18 09:00 02/23/18 08:13 Hytrin Cap* PO 5 mg DAILY [facility] Administration Vital Signs: Vital Signs Temp Pulse Resp BP Pulse Ox 97.8 F 58 16 122/50 98 02/23/18 05:30 02/23/18 05:30 02/23/18 08:11 02/23/18 05:30 02/23/18 05:30 Sitting BP 126/45, HR 80 Standing BP 110/44, HR 96 Lab Results: Laboratory Results - last 24 hr 02/22/18 02/22/18 02/23/18 12:06 16:34 06:19 WBC RBC Hgb Hct MCV MCH MCHC RDW Plt Count MPV Neut % (Auto) Lymph % (Auto) [place] % (Auto) Eos % (Auto) Baso % (Auto) Absolute Neuts (auto) Absolute Lymphs (auto) Absolute Monos (auto) Absolute Eos (auto) Absolute Basos (auto) Absolute Nucleated RBC Nucleated RBC % INR (Anticoag Therapy) 1.88 H POC Glucose (mg/dL) 149 H 154 H 02/23/18 02/23/18 07:53 08:58 WBC 7.7 RBC 2.57 L Hgb 8.9 L Hct 26 L MCV 100 H MCH 35 H MCHC 35 RDW 14 Plt Count 331 MPV 7.1 L Neut % (Auto) 73.8 Lymph % (Auto) 17.3 L [place] % (Auto) 7.3 H Eos % (Auto) 0.9 Baso % (Auto) 0.7 Absolute Neuts (auto) 5.6 Absolute Lymphs (auto) 1.3 Absolute Monos (auto) 0.6 Absolute Eos (auto) 0.1 Absolute Basos (auto) 0.1 Absolute Nucleated RBC 0 Nucleated RBC % 0 INR (Anticoag Therapy) POC Glucose (mg/dL) 164 H Exam: GENERAL: Alert and appropriate LUNGS: clear to auscultation bilaterally HEART: regular rate and rhythm ABDOMEN: Soft, non-tender, non-distended, +BS EXTREMITIES: Left pedal edema. Per patient and nursing edema in entire leg has been decreasing. NEUROLOGIC: Motor 5/5 bilateral ankle DF/PT and knee ext. Diminished sensation in feet Assessment/Plan: 1. Left SORAYA: PT/OT. WBAT. 2. DM: Metformin 500 BID. SSI 3. BPH: Hytrin, now 5mg 4. COPD: Ventolin/Singulair/Dulera 5. Orthostasis: Encourage po fluids. 6. DVT Prophylaxis: Coumadin 7. Advanced Directives: Full Code 02/23/18 10:56
[2018-02-23] MEDS: Mometasone/Formoter 200/5 MDI INH SCH ×2 (11:20→20:20)
[2018-02-23] MEDS: Montelukast Sodium TAB* 10 MG PO SCH (17:12)
[2018-02-23] MEDS: Gabapentin CAP(*) 300 MG PO SCH (17:12)
[2018-02-23] MEDS: Warfarin TAB(*) 1 MG PO SCH (17:12)
[2018-02-23] MEDS: Atorvastatin* 20 MG TAB PO SCH (17:12)
[2018-02-23] MEDS: Acetaminophen TAB* 325 MG PO PRN (20:20)
[2018-02-23] MEDS: Senna TAB PO SCH (20:20)
[2018-02-24 06:24] LABS: Hematocrit 24 % (42-52); Hemoglobin 8.3 g/dl (14.0-18.0)
[2018-02-24 06:33] LABS: INR 1.54 (0.77-1.02)
[2018-02-24] MEDS: Losartan TAB* 25 MG PO SCH (08:43)
[2018-02-24] MEDS: metFORMIN* 500 MG TAB PO SCH ×2 (08:43→17:14)
[2018-02-24] MEDS: Docusate CAP* 100 MG PO SCH ×2 (08:44→21:26)
[2018-02-24] MEDS: Terazosin CAP* 5 MG PO SCH (08:44)
[2018-02-24] MEDS: Mometasone/Formoter 200/5 MDI INH SCH ×2 (08:45→21:56)
[2018-02-24] MEDS: Insulin LISPRO* 1 UNITS UNIT SUBCUT SCH ×3 (08:46→16:43)
[2018-02-24] MEDS: Allopurinol TAB* 300 MG PO SCH (08:49)
--- NOTE | 2018-02-24 11:34 | PN ---
Progress Note Date of Service: 02/24/18 Note: MARY JANE CHIANG was visited. Nursing and therapy notes read and reviewed. He reports soreness on his right buttock. Nursing has applied barrier cream. In the past he gets boils. No chest pain, shortness of breath or abdominal pain. No dizziness today. Current Medications: Active Medications Generic Name Dose Route Start Last Admin Trade Name Freq PRN Reason Stop Dose Admin Acetaminophen 650 mg 02/18/18 15:23 02/23/18 20:20 Tylenol Tab* PO 650 mg Q6H PRN Administration FEVER/PAIN Albuterol 2 puff 02/18/18 15:32 Ventolin Hfa Inhaler* INH Q4H PRN SOB/WHEEZING Allopurinol 300 mg 02/19/18 09:00 02/24/18 08:49 Zyloprim Tab* PO 300 mg DAILY [facility] Administration Atorvastatin Calcium 20 mg 02/19/18 17:00 02/23/18 17:12 Lipitor* PO 20 mg 1700 [facility] Administration Dextrose 12.5 gm 02/18/18 15:36 D50w Syringe 50 Ml* IV PUSH .FOR FS < 60 - SS PRN FS < 60 Docusate Sodium 100 mg 02/18/18 21:00 02/24/18 08:44 Colace Cap* PO 100 mg BID [facility] Administration Gabapentin 300 mg 02/18/18 18:00 02/23/18 17:12 Neurontin Cap(*) PO 300 mg 1800 [facility] Administration Insulin Human Lispro 0 - 5 units 02/18/18 16:30 02/24/18 08:46 Humalog* SUBCUT 1 units AC [facility] Administration Protocol Losartan Potassium 50 mg 02/19/18 09:00 02/24/18 08:43 Cozaar Tab* PO 50 mg DAILY [facility] Administration Magnesium Hydroxide 30 ml 02/18/18 15:23 Milk Of Magnesia Liq* PO Q6H PRN CONSTIPATION Metformin HCl 500 mg 02/19/18 17:00 02/24/18 08:43 Glucophage* PO 500 mg 0800,1700 [facility] Administration Mometasone Furoate/Formoterol Fumar 2 puff 02/18/18 21:00 02/24/18 08:45 Dulera 200/5 Mdi* INH 2 puff BID [facility] Administration Montelukast Sodium 10 mg 02/18/18 18:00 02/23/18 17:12 Singulair Tab* PO 10 mg 1800 [facility] Administration Oxycodone HCl 10 mg 02/18/18 15:28 Roxycodone Tab* PO Q4H PRN PAIN - SEVERE Oxycodone HCl 5 mg 02/18/18 15:30 02/23/18 08:11 Roxycodone Tab* PO 5 mg Q4H PRN Administration PAIN - MODERATE TO SEVERE Senna 2 tab 02/19/18 21:00 02/23/18 20:20 Senokot Tab* PO 2 tab BEDTIME [facility] Administration Terazosin HCl 5 mg 02/22/18 09:00 02/24/18 08:44 Hytrin Cap* PO 5 mg DAILY [facility] Administration Warfarin Sodium 1 mg 02/23/18 17:00 02/23/18 17:12 Coumadin Tab(*) PO 1 mg DAILY@1700 [facility] Administration Protocol Vital Signs: Vital Signs Temp Pulse Resp BP Pulse Ox 98.5 F 66 18 123/48 99 02/24/18 05:14 02/24/18 05:14 02/24/18 05:14 02/24/18 05:14 02/24/18 08:00 Lab Results: Laboratory Results - last 24 hr 02/23/18 02/23/18 02/23/18 08:58 12:05 16:51 Hgb Hct Hem Pathologist Commnt INR (Anticoag Therapy) POC Glucose (mg/dL) 132 H 152 H 02/24/18 02/24/18 02/24/18 06:07 06:07 07:21 Hgb 8.3 L Hct 24 L Hem Pathologist Commnt INR (Anticoag Therapy) 1.54 H POC Glucose (mg/dL) 152 H Exam: GENERAL: Alert and appropriate LUNGS: clear to auscultation bilaterally HEART: regular rate and rhythm ABDOMEN: Soft, non-tender, non-distended, +BS EXTREMITIES: Left pedal edema better than yesterday. NEUROLOGIC: Motor 5/5 bilateral ankle DF/PT and knee ext. Diminished sensation in feet SKIN: Blanching erythema on buttocks and sacrum, right greater than left. Dry skin on right and 1/2 dime size area missing most superficial layer of skin. Assessment/Plan: 1. Left SORAYA: PT/OT. WBAT. 2. DM: Metformin 500 BID. SSI 3. BPH: Hytrin, now 5mg 4. COPD: Ventolin/Singulair/Dulera 5. Orthostasis: Encourage po fluids. 6. Acute postoperative anemia: Small decrease in H/H today, but fluctuating as I look back a few days. He is not symptomatic. H/H tomorrow. Hold on transfusion. 7. DVT Prophylaxis: Coumadin 1mg restarted 02/23. Being conservative given anemia. 8. Skin: Change positions q2h. 9. Advanced Directives: Full Code 02/24/18 11:31
[2018-02-24] MEDS: oxyCODONE TAB* 5 MG TAB PO PRN ×2 (11:50→21:57)
[2018-02-24] MEDS: Warfarin TAB(*) 1 MG PO SCH (17:14)
[2018-02-24] MEDS: Atorvastatin* 20 MG TAB PO SCH (17:14)
[2018-02-24] MEDS: Montelukast Sodium TAB* 10 MG PO SCH (18:23)
[2018-02-24] MEDS: Gabapentin CAP(*) 300 MG PO SCH (18:23)
[2018-02-24] MEDS: Senna TAB PO SCH (21:26)
[2018-02-25 06:25] LABS: Hematocrit 23 % (42-52); Hemoglobin 7.9 g/dl (14.0-18.0)
[2018-02-25 06:31] LABS: INR 1.29 (0.77-1.02)
[2018-02-25] MEDS: Losartan TAB* 25 MG PO SCH (08:43)
[2018-02-25] MEDS: Terazosin CAP* 5 MG PO SCH (08:44)
[2018-02-25] MEDS: Docusate CAP* 100 MG PO SCH ×2 (08:44→20:31)
[2018-02-25] MEDS: metFORMIN* 500 MG TAB PO SCH ×2 (08:44→17:12)
[2018-02-25] MEDS: Allopurinol TAB* 300 MG PO SCH (08:44)
[2018-02-25] MEDS: Albuterol HFA INHALER* 8 gm MDI INH PRN (08:45)
[2018-02-25] MEDS: Insulin LISPRO* 1 UNITS UNIT SUBCUT SCH ×3 (08:47→16:54)
[2018-02-25] MEDS: Mometasone/Formoter 200/5 MDI INH SCH ×2 (08:48→20:32)
--- NOTE | 2018-02-25 10:13 | PN ---
Progress Note Date of Service: 02/25/18 Note: MARY JANE CHIANG was visited. Nursing notes read and reviewed. No chest pain, shortness of breath or abdominal pain. When I ask him about dizziness he reported a little when he first got up. Later as we discussed potential blood transfusion he said it was more anxiety than lightheaded/dizzy. Current Medications: Active Medications Generic Name Dose Route Start Last Admin Trade Name Freq PRN Reason Stop Dose Admin Acetaminophen 650 mg 02/18/18 15:23 02/23/18 20:20 Tylenol Tab* PO 650 mg Q6H PRN Administration FEVER/PAIN Albuterol 2 puff 02/18/18 15:32 Ventolin Hfa Inhaler* INH Q4H PRN SOB/WHEEZING Allopurinol 300 mg 02/19/18 09:00 02/25/18 08:44 Zyloprim Tab* PO 300 mg DAILY [facility] Administration Atorvastatin Calcium 20 mg 02/19/18 17:00 02/24/18 17:14 Lipitor* PO 20 mg 1700 [facility] Administration Dextrose 12.5 gm 02/18/18 15:36 D50w Syringe 50 Ml* IV PUSH .FOR FS < 60 - SS PRN FS < 60 Docusate Sodium 100 mg 02/18/18 21:00 02/25/18 08:44 Colace Cap* PO 100 mg BID [facility] Administration Gabapentin 300 mg 02/18/18 18:00 02/24/18 18:23 Neurontin Cap(*) PO 300 mg 1800 [facility] Administration Insulin Human Lispro 0 - 5 units 02/18/18 16:30 02/25/18 08:47 Humalog* SUBCUT 1 units AC [facility] Administration Protocol Losartan Potassium 50 mg 02/19/18 09:00 02/25/18 08:43 Cozaar Tab* PO 50 mg DAILY [facility] Administration Magnesium Hydroxide 30 ml 02/18/18 15:23 Milk Of Magnesia Liq* PO Q6H PRN CONSTIPATION Metformin HCl 500 mg 02/19/18 17:00 02/25/18 08:44 Glucophage* PO 500 mg 0800,1700 [facility] Administration Mometasone Furoate/Formoterol Fumar 2 puff 02/18/18 21:00 02/25/18 08:48 Dulera 200/5 Mdi* INH 2 puff BID [facility] Administration Montelukast Sodium 10 mg 02/18/18 18:00 02/24/18 18:23 Singulair Tab* PO 10 mg 1800 [facility] Administration Oxycodone HCl 10 mg 02/18/18 15:28 Roxycodone Tab* PO Q4H PRN PAIN - SEVERE Oxycodone HCl 5 mg 02/18/18 15:30 02/24/18 21:57 Roxycodone Tab* PO 5 mg Q4H PRN Administration PAIN - MODERATE TO SEVERE Senna 2 tab 02/19/18 21:00 02/24/18 21:26 Senokot Tab* PO 2 tab BEDTIME [facility] Administration Terazosin HCl 5 mg 02/22/18 09:00 02/25/18 08:44 Hytrin Cap* PO 5 mg DAILY [facility] Administration Warfarin Sodium 1 mg 02/23/18 17:00 02/24/18 17:14 Coumadin Tab(*) PO 1 mg DAILY@1700 [facility] Administration Protocol Vital Signs: Vital Signs Temp Pulse Resp BP Pulse Ox 98.4 F 65 18 129/48 98 02/25/18 06:09 02/25/18 06:09 02/25/18 06:09 02/25/18 06:09 02/25/18 06:09 Lab Results: Laboratory Results - last 24 hr 02/24/18 02/24/18 02/25/18 11:44 16:41 06:00 Hgb 7.9 L Hct 23 L INR (Anticoag Therapy) POC Glucose (mg/dL) 157 H 135 H 02/25/18 02/25/18 06:00 07:24 Hgb Hct INR (Anticoag Therapy) 1.29 H POC Glucose (mg/dL) 154 H Exam: GENERAL: Alert and appropriate LUNGS: clear to auscultation bilaterally HEART: regular rate and rhythm ABDOMEN: Soft, non-tender, non-distended, +BS EXTREMITIES: Left pedal edema better than yesterday. NEUROLOGIC: Motor 5/5 bilateral ankle DF/PT and knee ext. Diminished sensation in feet Assessment/Plan: 1. Left SORAYA: PT/OT. WBAT. 2. DM: Metformin 500 BID. SSI 3. BPH: Hytrin, now 5mg 4. COPD: Ventolin/Singulair/Dulera 5. Orthostasis: Encourage po fluids. 6. Acute postoperative anemia: Again small decrease in H/H today, but fluctuating as I look back a few days. He is not symptomatic except for occasional dizziness. I d/w with him blood transfusion risks/benefits and offered today. He would rather wait on this and see H/H tomorrow. He knows to report any lightheaded/dizziness or shortness of breath to nursing. He does not have a cardiac history but does have copd. Heme check stools. Start iron. 7. DVT Prophylaxis: Coumadin 1mg restarted 02/23. Being conservative given anemia. INR in the morning. Will give sc Heparin Q12h starting today. 8. Skin: Change positions q2h. 9. Advanced Directives: Full Code 02/25/18 10:09
[2018-02-25] MEDS: Ferrous Sulfate TAB* 325 MG PO SCH ×2 (11:40→20:31)
[2018-02-25] MEDS: Heparin VIAL(*) 5000 UNITS/ML VIAL (FIVE THOUSAND) SUBCUT SCH ×2 (11:40→20:34)
[2018-02-25] MEDS: Montelukast Sodium TAB* 10 MG PO SCH (17:12)
[2018-02-25] MEDS: Warfarin TAB(*) 1 MG PO SCH (17:12)
[2018-02-25] MEDS: Atorvastatin* 20 MG TAB PO SCH (17:13)
[2018-02-25] MEDS: Gabapentin CAP(*) 300 MG PO SCH (17:13)
[2018-02-25] MEDS: Senna TAB PO SCH (20:31)
[2018-02-25] MEDS: Acetaminophen TAB* 325 MG PO PRN (20:32)
[2018-02-26 06:03] LABS: INR 1.26 (0.77-1.02)
[2018-02-26 06:11] LABS: ABS Basophils 0 10^3/ul (0-0.2); ABS Eosinophils 0.1 10^3/ul (0-0.6); ABS Lymphocytes 2.1 10^3/ul (1.0-4.8); ABS Monocytes 0.7 10^3/ul (0-0.8); ABS Neutrophils 5.6 10^3/ul (1.5-7.7); ABS Nucleated RBC 0 10^3/ul; Eosinophil % 1.3 % (0-6); Hematocrit 24 % (42-52); Hemoglobin 8.3 g/dl (14.0-18.0); Lymphocyte % 24.6 % (25-47); Mean Corpuscular HGB Conc 34 g/dl (31-36); Mean Corpuscular Hemoglobin 34 pg (27-31); Mean Corpuscular Volume 99 fL (80-94); Mean Platelet Volume 7.4 um3 (7.4-10.4); Nucleated Red Blood Cells % 0; Platelet Count 355 10^3/ul (150-450); Red Blood Count 2.44 10^6/ul (4.00-5.40); Red Cell Distribution Width 14 % (10.5-15); White Blood Count 8.6 10^3/ul (3.5-10.8)
[2018-02-26 06:13] LABS: EGFR Non-African American 72.2 (>60)
[2018-02-26] MEDS: metFORMIN* 500 MG TAB PO SCH ×2 (08:01→17:14)
[2018-02-26] MEDS: Allopurinol TAB* 300 MG PO SCH (08:01)
[2018-02-26] MEDS: Insulin LISPRO* 1 UNITS UNIT SUBCUT SCH ×3 (08:01→17:15)
[2018-02-26] MEDS: Docusate CAP* 100 MG PO SCH ×2 (08:02→20:47)
[2018-02-26] MEDS: Ferrous Sulfate TAB* 325 MG PO SCH ×2 (08:02→20:47)
[2018-02-26] MEDS: Heparin VIAL(*) 5000 UNITS/ML VIAL (FIVE THOUSAND) SUBCUT SCH ×2 (08:02→20:54)
[2018-02-26] MEDS: Losartan TAB* 25 MG PO SCH (08:03)
[2018-02-26] MEDS: Terazosin CAP* 5 MG PO SCH (08:04)
[2018-02-26] MEDS: oxyCODONE TAB* 5 MG TAB PO PRN ×2 (09:00→13:03)
[2018-02-26] MEDS: Mometasone/Formoter 200/5 MDI INH SCH ×2 (09:35→20:49)
--- NOTE | 2018-02-26 16:33 | PN ---
Progress Note Date of Service: 02/26/18 Note: MARY JANE CHIANG was visited. Therapy notes read and reviewed. His Hb was above 8 today. He does note that he was having dizzy spells before his hip surgery. I don't see a need to transfuse at this time. He is on Coumadin, will increase to 2 mg. Current Medications: Active Medications Generic Name Dose Route Start Last Admin Trade Name Freq PRN Reason Stop Dose Admin Acetaminophen 650 mg 02/18/18 15:23 02/25/18 20:32 Tylenol Tab* PO 650 mg Q6H PRN Administration FEVER/PAIN Albuterol 2 puff 02/18/18 15:32 Ventolin Hfa Inhaler* INH Q4H PRN SOB/WHEEZING Allopurinol 300 mg 02/19/18 09:00 02/26/18 08:01 Zyloprim Tab* PO 300 mg DAILY [facility] Administration Atorvastatin Calcium 20 mg 02/19/18 17:00 02/25/18 17:13 Lipitor* PO 20 mg 1700 [facility] Administration Dextrose 12.5 gm 02/18/18 15:36 D50w Syringe 50 Ml* IV PUSH .FOR FS < 60 - SS PRN FS < 60 Docusate Sodium 100 mg 02/18/18 21:00 02/26/18 08:02 Colace Cap* PO 100 mg BID [facility] Administration Ferrous Sulfate 325 mg 02/25/18 11:00 02/26/18 08:02 Ferrous Sulfate Tab* PO 325 mg BID [facility] Administration Gabapentin 300 mg 02/18/18 18:00 02/25/18 17:13 Neurontin Cap(*) PO 300 mg 1800 [facility] Administration Heparin Sodium (Porcine) 5,000 units 02/25/18 11:00 02/26/18 08:02 Heparin Vial(*) SUBCUT 5,000 units Q12HR [facility] Administration Insulin Human Lispro 0 - 5 units 02/18/18 16:30 02/26/18 12:48 Humalog* SUBCUT Not Given AC [facility] Protocol Losartan Potassium 50 mg 02/19/18 09:00 02/26/18 08:03 Cozaar Tab* PO 50 mg DAILY [facility] Administration Magnesium Hydroxide 30 ml 02/18/18 15:23 Milk Of Magnesia Liq* PO Q6H PRN CONSTIPATION Metformin HCl 500 mg 02/19/18 17:00 02/26/18 08:01 Glucophage* PO 500 mg 0800,1700 [facility] Administration Mometasone Furoate/Formoterol Fumar 2 puff 02/18/18 21:00 02/26/18 09:35 Dulera 200/5 Mdi* INH Not Given BID [facility] Montelukast Sodium 10 mg 02/18/18 18:00 02/25/18 17:12 Singulair Tab* PO 10 mg 1800 [facility] Administration Oxycodone HCl 10 mg 02/18/18 15:28 Roxycodone Tab* PO Q4H PRN PAIN - SEVERE Oxycodone HCl 5 mg 02/18/18 15:30 02/26/18 13:03 Roxycodone Tab* PO 5 mg Q4H PRN Administration PAIN - MODERATE TO SEVERE Senna 2 tab 02/19/18 21:00 02/25/18 20:31 Senokot Tab* PO 2 tab BEDTIME [facility] Administration Terazosin HCl 5 mg 02/22/18 09:00 02/26/18 08:04 Hytrin Cap* PO 5 mg DAILY [facility] Administration Warfarin Sodium 2 mg 02/26/18 17:00 Coumadin Tab(*) PO DAILY@1700 [facility] Protocol Vital Signs: Vital Signs Temp Pulse Resp BP Pulse Ox 97.7 F 68 18 138/52 100 02/26/18 16:13 02/26/18 16:13 02/26/18 16:13 02/26/18 16:13 02/26/18 16:13 Lab Results: Laboratory Results - last 24 hr 02/25/18 02/26/18 02/26/18 16:42 05:30 05:30 WBC 8.6 RBC 2.44 L Hgb 8.3 L Hct 24 L MCV 99 H MCH 34 H MCHC 34 RDW 14 Plt Count 355 MPV 7.4 Neut % (Auto) 64.9 Lymph % (Auto) 24.6 L [place] % (Auto) 8.7 H Eos % (Auto) 1.3 Baso % (Auto) 0.5 Absolute Neuts (auto) 5.6 Absolute Lymphs (auto) 2.1 Absolute Monos (auto) 0.7 Absolute Eos (auto) 0.1 Absolute Basos (auto) 0 Absolute Nucleated RBC 0 Nucleated RBC % 0 INR (Anticoag Therapy) Sodium 134 L Potassium 4.3 Chloride 107 Carbon Dioxide 22 Anion Gap 5 BUN 25 H Creatinine 0.98 Est GFR ( Amer) 87.3 Est GFR (Non-Af Amer) 72.2 BUN/Creatinine Ratio 25.5 H Glucose 130 H POC Glucose (mg/dL) 138 H Calcium 9.4 Total Bilirubin 0.50 AST 12 L ALT 17 Alkaline Phosphatase 58 Total Protein 6.0 L Albumin 3.3 Globulin 2.7 Albumin/Globulin Ratio 1.2 02/26/18 02/26/18 02/26/18 05:30 07:32 11:53 WBC RBC Hgb Hct MCV MCH MCHC RDW Plt Count MPV Neut % (Auto) Lymph % (Auto) [place] % (Auto) Eos % (Auto) Baso % (Auto) Absolute Neuts (auto) Absolute Lymphs (auto) Absolute Monos (auto) Absolute Eos (auto) Absolute Basos (auto) Absolute Nucleated RBC Nucleated RBC % INR (Anticoag Therapy) 1.26 H Sodium Potassium Chloride Carbon Dioxide Anion Gap BUN Creatinine Est GFR ( Amer) Est GFR (Non-Af Amer) BUN/Creatinine Ratio Glucose POC Glucose (mg/dL) 169 H 142 H Calcium Total Bilirubin AST ALT Alkaline Phosphatase Total Protein Albumin Globulin Albumin/Globulin Ratio Exam: GENERAL: Alert and appropriate LUNGS: clear to auscultation bilaterally HEART: regular rhythm ABDOMEN: Soft, non-tender, non-distended, +BS EXTREMITIES: Trace Left pedal edema NEUROLOGIC: Motor 5/5 bilateral ankle DF/PT and knee ext. Diminished sensation in feet Assessment/Plan: 1. Left SORAYA: PT/OT. WBAT. 2. DM: Metformin 500 BID. SSI 3. BPH: Hytrin, now 5mg 4. COPD: Ventolin/Singulair/Dulera 5. Orthostasis: Encourage po fluids. 6. Acute postoperative anemia: Stable. No transfusion at this time 7. DVT Prophylaxis: Coumadin 2 mg. INR in the morning. Will give sc Heparin Q12h through tomorrow 8. Skin: Change positions q2h. 9. Advanced Directives: Full Code 02/26/18 16:34
[2018-02-26] MEDS ORDERED: Polyethylene Glycol 3350* 17 GM PACKET PO PRN (17:13)
[2018-02-26] MEDS: Atorvastatin* 20 MG TAB PO SCH (17:14)
[2018-02-26] MEDS: Gabapentin CAP(*) 300 MG PO SCH (17:14)
[2018-02-26] MEDS: Montelukast Sodium TAB* 10 MG PO SCH (17:15)
[2018-02-26] MEDS: Warfarin TAB(*) 2 MG PO SCH (17:15)
[2018-02-26] MEDS: Senna TAB PO SCH (20:48)
[2018-02-27 05:57] LABS: INR 1.2 (0.77-1.02)
[2018-02-27] MEDS: Insulin LISPRO* 1 UNITS UNIT SUBCUT SCH ×3 (07:56→17:17)
[2018-02-27] MEDS: Ferrous Sulfate TAB* 325 MG PO SCH ×2 (08:08→20:41)
[2018-02-27] MEDS: metFORMIN* 500 MG TAB PO SCH ×2 (08:08→17:18)
[2018-02-27] MEDS: Allopurinol TAB* 300 MG PO SCH (08:09)
[2018-02-27] MEDS: Docusate CAP* 100 MG PO SCH ×2 (08:09→20:41)
[2018-02-27] MEDS: Terazosin CAP* 5 MG PO SCH (08:09)
[2018-02-27] MEDS: Losartan TAB* 25 MG PO SCH (08:10)
[2018-02-27] MEDS: Heparin VIAL(*) 5000 UNITS/ML VIAL (FIVE THOUSAND) SUBCUT SCH ×2 (08:11→20:41)
[2018-02-27] MEDS: oxyCODONE TAB* 5 MG TAB PO PRN (08:11)
[2018-02-27] MEDS: Mometasone/Formoter 200/5 MDI INH SCH ×2 (08:13→20:48)
[2018-02-27] MEDS: Albuterol HFA INHALER* 8 gm MDI INH PRN (10:52)
--- NOTE | 2018-02-27 12:52 | PMRUTEAM ---
PMRU: Team Meeting Current Status: Nursing: Current Status Skin Deviations [Back] Rash Skin Deviations [Coccyx] Pressure Ulcer Skin Deviations [Buttocks] Pressure Ulcer Skin Deviations [Left Hip] Incision Skin Deviation Description [ resolved Back] Skin Deviation Description [ Duoderm removed, using orange cream for open area Coccyx] in the slit of coccyx. Noted redened area on buttocks both sides with skin. Encouraged back in bed between therapy to relieve pressure. Skin Deviation Description [ barrier cream present Buttocks] Skin Deviation Description [ drsg in place Left Hip] Bladder Current Status No issues, 7 Bowel Current Status 6 Nutrition Current Status Encouraged protein Medication Current Status Will need reinforcement on discharge of medication changes. Physical Therapy: Current Status Bed Mobility Assistance Not Tested Transfer Moblility Assistance Supervision Transfer/Bed Mobility Rolling Walker Recommended Devices Ambulation Assistance Supervision Ambulation Assistive Devices Rolling Walker Number of Feet Patient 150' Ambulated Stairs Assistance Supervision Stairs Recommended Devices Two Rails Number of Stairs 10 Objective Comments patient demosntrates excellent abiltiy in ascent and descent of stairs with 2 rails this date. Occupational Therapy: Current Status Upper Body Dressing Independent Lower Body Dressing Supervision,Min Assist Lower Body Dressing Progress min A today to pull underwear and pants over hips d/t feeling of SOB Bathing Supervision Toileting Supervision Toilet Transfer Supervision Shower Transfer Supervision Eating Independent Rec Therapy: Current Status Summary of Assessment and RT assessment complete and pt. is aware of leisure Clinical Impression services. Pt. is with visitors during recreation time in the afternoons. Treatment Goals Pt. will engage in leisure activities while on the unit. Treatment Plan Provide RT services and encourage involvement. Social Work: Current Status Discharge Plan return home with home care svs and family support Potential for Family Training pt's and daughter attended family training today Anticipated Discharge Home Destination Discharge With home care svs and family support Nutrition: Current Status Monitoring eating nearly 100% of consistent carbohydrate diet . FS ranging 130s-160s; good control. No new diet education needs identified, although will remain available as indicated. Hx esophageal stricture; denies swallowing difficulty - regular diet textures appropriate. Last BM 02/24. Coumadin/ Vitamin K interaction provided 02/16. Appears to be meeting goals as outlined below. Goals: Physical Therapy: Updated Goals Transfer/Bed Mobility Rolling Walker Recommended Devices Occupational Therapy: Initial Goals Goals to be Completed in (Days 7-10 ) Upper Body Bathing Routine Modified Independent with Lower Body Bathing Routine Modified Independent with Upper Body Dressing Routine Independent Lower Body Dressing Routine Modified Independent with Toilet Hygeine and Clothing Modified Independent with Management Routine Toilet Transfer Routine Modified Independent with Tub Transfer Routine Modified Independent with Functional Transfers for ADL Modified Independent with Grooming Routine Independent Feeding Routine Independent Nursing: Goals Bladder Goal 7 Bowel Goal 6 Nutrition Goal Independent Medication Goal Independent Nutrition: Goals Intervention Goals 1. adequate po intake to support post-op healing and lean body mass without add'l wt gain 2. glycemic control within inpatient parameters; no s/sx hypo-hyperglycemia 3. regulation of post-op bowel pattern; no c/o constipation (or diarrhea) 4. pt questions re: Coumadin/vit K education will be addressed prior to d/c Social Work: Goals Discharge Plan return home with home care svs and family support Potential for Family Training pt's and daughter attended family training today Anticipated Discharge Home Destination Discharge With home care svs and family support Care Plan: Care Plan ADL's - Improve/Maintain Start: 02/19/18 01:21 Freq: DAILY@1200 Status: Active Target: Protocol: Activity Type Activity Date Activity User E-Sign Co-Sign Detail Recorded Client Recorded Date Recorded By Document 02/23/18 15:55 [id number] [id number] 02/23/18 15:55 [id number] 02/23/18 15:55 PMRU Outcome: ADL's/ADL Transfers Orders/Interventions Occupational Therapy Evaluation & Treatment Communication Tool in Patient Room Device Yes Address Deficits Secondary To: SORAYA Patient to receive OT 5x/wk for 60-120 Therex min/day Self Care Management Group Therapy UE/LE ADL's with Assist Yes: Beena ADL Transfers with Assist Yes: Beena Toileting: Transfers,Clothing Management Yes: Beena ,Hygeine w/Assist Light Kitchen/Laundry w/Assist No Progression Toward Outcome/Goals Progressing Outcome/Goals Met Pt requires less v/c during self care, especially during STS and sitting. Pt demonstrates improvements with using AE for LE dressing . Pt's dizziness is a limiting factor to independence in self care now. Coping/Psych-Improve/Maintain Start: 02/19/18 01:21 Freq: QSHIFT Status: Complete Target: Protocol: Activity Type Activity Date Activity User E-Sign Co-Sign Detail Recorded Client Recorded Date Recorded By Document 02/21/18 16:25 [id number] 02/21/18 16:26 [id number] 02/21/18 16:25 PMRU Outcome: Coping/Psychosocial Coping Outcome/Goals Verbalization of Acceptance of Rehab Admit Psychosocial Outcome/Goals Maintain/ Improve Emotional Health Cooperate/ Participate in Plan Coping Outcome/Goals Met Demonstrates Understanding of Rehab Admit and Goal Setting Process Performs Actions to Reduce Fear and Anxiety DVT Prophylaxis- Improve/Maintain Start: 02/19/18 01:21 Freq: QSHIFT Status: Complete Target: Protocol: Activity Type Activity Date Activity User E-Sign Co-Sign Detail Recorded Client Recorded Date Recorded By Document 02/24/18 08:00 [id number] 02/24/18 09:09 [id number] 02/24/18 08:00 PMRU Outcome: DVT Prophylaxis Outcome/Goals Remains Free of DVT Complies with DVT Prophylaxis /Treatment TEDS Stockings on Every AM, Off at HS Outcome/Goals Met Remains Free of DVT Complies with DVT Prophylaxis /Treatment TEDS Stockings on Every AM, Off at HS Discharge Planning - Improve/Maintain Start: 02/19/18 01:21 Freq: DAILY Status: Active Target: Protocol: Activity Type Activity Date Activity User E-Sign Co-Sign Detail Recorded Client Recorded Date Recorded By Document 02/27/18 00:20 [id number] 02/27/18 00:20 [id number] 02/27/18 00:20 PMRU Outcome: Discharge Planning Update Patient Family No Outcome/Goals Demonstrates Understanding of Discharge Plan Progression Toward Outcome/Goals Progressing Education-Improve/Maintain Start: 02/19/18 01:21 Freq: QSHIFT Status: Active Target: Protocol: Activity Type Activity Date Activity User E-Sign Co-Sign Detail Recorded Client Recorded Date Recorded By Document 02/27/18 08:00 [id number] 02/27/18 09:51 [id number] 02/27/18 08:00 PMRU Outcome: Education Outcome/Goals Encourage Questions Progression Toward Outcome/Goals Progressing /GI-Improve/Maintain Start: 02/19/18 01:21 Freq: QSHIFT Status: Active Target: Protocol: Activity Type Activity Date Activity User E-Sign Co-Sign Detail Recorded Client Recorded Date Recorded By Document 02/27/18 08:00 [id number] 02/27/18 09:51 [id number] 02/27/18 08:00 PMRU Outcome: Genitourinary/ Gastrointestinal Genitourinary- Outcome/Goals Maintain/ Achieve Urinary Continence Gastrointestinal-Outcome/Goals Prevent Constipation Bowel Regularity at Home Progression Toward Outcome/Goals - Progressing Medication Administration Start: 02/19/18 01:21 Freq: QSHIFT Status: Active Target: Protocol: Activity Type Activity Date Activity User E-Sign Co-Sign Detail Recorded Client Recorded Date Recorded By Document 02/27/18 08:00 [id number] 02/27/18 09:51 [id number] 02/27/18 08:00 PMRU Outcome: Medication Administration Assess Patient Knowledge/Teach Med No Education for all Meds Is Patient Going Home on Lovenox? No Metabolic Status- Improve/Maintain Start: 02/19/18 01:21 Freq: QSHIFT Status: Active Target: Protocol: Activity Type Activity Date Activity User E-Sign Co-Sign Detail Recorded Client Recorded Date Recorded By Document 02/27/18 08:00 [id number] 02/27/18 09:51 [id number] 02/27/18 08:00 PMRU Outcome: Metabolic Status Have Fingersticks Been Ordered Yes Fingerstick Order Frequency Other Outcome/Goals Maintain/ Improve Metabolic Status Demonstrate Knowledge of Prevention/ Treatment of Metabolic Imbalances Progression Toward Outcome/Goals Progressing Neurological- Improve/Maintain Start: 02/19/18 01:21 Freq: QSHIFT Status: Active Target: Protocol: Activity Type Activity Date Activity User E-Sign Co-Sign Detail Recorded Client Recorded Date Recorded By Document 02/27/18 08:00 [id number] 02/27/18 09:51 [id number] 02/27/18 08:00 PMRU Outcome: Neurological Weakness/Aphasia Weakness Left Side Weakness/Aphasia Comment L total hip Outcome/Goals Maintain/ Achieve Baseline Neurological Status Prevent Avoidable Neurological Decline Maintain/ Improve Strength/ROM Progression Toward Outcome/Goals Progressing Pain/Comfort- Improve/Maintain Start: 02/19/18 01:21 Freq: QSHIFT Status: Complete Target: Protocol: Activity Type Activity Date Activity User E-Sign Co-Sign Detail Recorded Client Recorded Date Recorded By Document 02/24/18 08:00 [id number] 02/24/18 09:09 [id number] 02/24/18 08:00 PMRU Outcome: Pain/Comfort Outcome/Goals Demonstrates Knowledge and Use of Available Comfort Measures Achieves Acceptable Comfort/Pain Level as Determined by Patient/Condit Maintain Comfort Level Allowing Patient to Fully Participate in Rehab Outcome/Goals Met Demonstrates Knowledge and Use of Available Comfort Measures Safety- Improve/Maintain Start: 02/19/18 01:21 Freq: QSHIFT Status: Active Target: Protocol: Activity Type Activity Date Activity User E-Sign Co-Sign Detail Recorded Client Recorded Date Recorded By Document 02/27/18 08:00 [id number] [id number] 02/27/18 09:51 [id number] 02/27/18 08:00 PMRU Outcome: Safety Outcome/Goals Remain Free of Injury or Harm Cooperates with Safety Measures for Least Restrictive Environment Prevent Falls/ Injury Progression Toward Outcome/Goals Progressing Skin- Improve/Maintain Start: 02/19/18 01:21 Freq: QSHIFT Status: Active Target: Protocol: Activity Type Activity Date Activity User E-Sign Co-Sign Detail Recorded Client Recorded Date Recorded By Document 02/27/18 08:00 [id number] 02/27/18 09:51 [id number] 02/27/18 08:00 PMRU Outcome: Skin Skin Risk Level High Skin Orders Air Mattress Turn/Position q2hr While in Bed Outcome/Goals Maintain/ Improve Skin Intergrity Free from Decubitus Maintain/ Improve Wound Status Surgical Incisions Healing Progression Toward Outcome/Goals Progressing Medicine Note: Length of Stay: 1 day Anticipated Discharge Destination: Home Tentative Discharge Date: 02/28/18 Discharged to: Home
[2018-02-27 16:06] VITALS: BP 128/44
[2018-02-27] MEDS: Warfarin TAB(*) 2 MG PO SCH (17:18)
[2018-02-27] MEDS: Atorvastatin* 20 MG TAB PO SCH (17:18)
--- NOTE | 2018-02-27 18:04 | PN ---
Progress Note Date of Service: 02/27/18 Note: MARY JANE CHIANG was visited. Therapy notes read and reviewed. He continues to complain of periodic dizziness. This may be the Hytrin, and will cut back. He was discussed in interdisciplinary team rounds. He is functionally ready for discharge in am. Current Medications: Active Medications Generic Name Dose Route Start Last Admin Trade Name Freq PRN Reason Stop Dose Admin Acetaminophen 650 mg 02/18/18 15:23 02/25/18 20:32 Tylenol Tab* PO 650 mg Q6H PRN Administration FEVER/PAIN Albuterol 2 puff 02/18/18 15:32 02/27/18 10:52 Ventolin Hfa Inhaler* INH 2 puff Q4H PRN Administration SOB/WHEEZING Allopurinol 300 mg 02/19/18 09:00 02/27/18 08:09 Zyloprim Tab* PO 300 mg DAILY [facility] Administration Atorvastatin Calcium 20 mg 02/19/18 17:00 02/27/18 17:18 Lipitor* PO 20 mg 1700 [facility] Administration Dextrose 12.5 gm 02/18/18 15:36 D50w Syringe 50 Ml* IV PUSH .FOR FS < 60 - SS PRN FS < 60 Docusate Sodium 100 mg 02/18/18 21:00 02/27/18 08:09 Colace Cap* PO 100 mg BID [facility] Administration Ferrous Sulfate 325 mg 02/25/18 11:00 02/27/18 08:08 Ferrous Sulfate Tab* PO 325 mg BID [facility] Administration Gabapentin 300 mg 02/18/18 18:00 02/26/18 17:14 Neurontin Cap(*) PO 300 mg 1800 [facility] Administration Heparin Sodium (Porcine) 5,000 units 02/25/18 11:00 02/27/18 08:11 Heparin Vial(*) SUBCUT 5,000 units Q12HR [facility] Administration Insulin Human Lispro 0 - 5 units 02/18/18 16:30 02/27/18 17:17 Humalog* SUBCUT Not Given AC [facility] Protocol Losartan Potassium 25 mg 02/28/18 09:00 Cozaar Tab* PO DAILY [facility] Magnesium Hydroxide 30 ml 02/18/18 15:23 Milk Of Magnesia Liq* PO Q6H PRN CONSTIPATION Metformin HCl 500 mg 02/19/18 17:00 02/27/18 17:18 Glucophage* PO 500 mg 0800,1700 [facility] Administration Mometasone Furoate/Formoterol Fumar 2 puff 02/18/18 21:00 02/27/18 08:13 Dulera 200/5 Mdi* INH 2 puff BID [facility] Administration Montelukast Sodium 10 mg 02/18/18 18:00 02/26/18 17:15 Singulair Tab* PO 10 mg 1800 [facility] Administration Oxycodone HCl 10 mg 02/18/18 15:28 02/26/18 20:48 Roxycodone Tab* PO 10 mg Q4H PRN Administration PAIN - SEVERE Oxycodone HCl 5 mg 02/18/18 15:30 02/27/18 08:11 Roxycodone Tab* PO 5 mg Q4H PRN Administration PAIN - MODERATE TO SEVERE Polyethylene Glycol/Electrolytes 17 gm 02/26/18 17:13 02/26/18 18:24 Miralax* PO 17 gm DAILY PRN Administration CONSTIPATION Senna 2 tab 02/19/18 21:00 02/26/18 20:48 Senokot Tab* PO 2 tab BEDTIME [facility] Administration Terazosin HCl 2 mg 02/28/18 09:00 Hytrin Cap* PO DAILY [facility] Warfarin Sodium 2 mg 02/26/18 17:00 02/27/18 17:18 Coumadin Tab(*) PO 2 mg DAILY@1700 [facility] Administration Protocol Vital Signs: Vital Signs Temp Pulse Resp BP Pulse Ox 98.3 F 62 18 128/44 100 02/27/18 16:06 02/27/18 16:06 02/27/18 16:06 02/27/18 16:06 02/27/18 16:06 Lab Results: Laboratory Results - last 24 hr 02/27/18 02/27/18 02/27/18 05:41 07:46 12:05 INR (Anticoag Therapy) 1.20 H POC Glucose (mg/dL) 141 H 135 H 02/27/18 17:09 INR (Anticoag Therapy) POC Glucose (mg/dL) 130 H Exam: GENERAL: Alert and appropriate LUNGS: clear to auscultation bilaterally HEART: regular rhythm ABDOMEN: Soft, non-tender, non-distended, +BS EXTREMITIES: Trace Left pedal edema NEUROLOGIC: Motor 5/5 bilateral ankle DF/PT and knee ext. Diminished sensation in feet Assessment/Plan: 1. Left SORAYA: PT/OT. WBAT. 2. DM: Metformin 500 BID. SSI 3. BPH: Hytrin, now 5mg 4. COPD: Ventolin/Singulair/Dulera 5. Orthostasis: Encourage po fluids. 6. Acute postoperative anemia: Stable. No transfusion at this time 7. DVT Prophylaxis: Coumadin 2 mg. INR in the morning. Will give sc Heparin Q12h through tomorrow 8. Skin: Change positions q2h. 9. Advanced Directives: Full Code 02/27/18 18:05
[2018-02-27] MEDS: Gabapentin CAP(*) 300 MG PO SCH (18:19)
[2018-02-27] MEDS: Montelukast Sodium TAB* 10 MG PO SCH (18:19)
[2018-02-27] MEDS: Senna TAB PO SCH (20:41)
[2018-02-28 05:31] LABS: ABS Basophils 0.1 10^3/ul (0-0.2); ABS Eosinophils 0.1 10^3/ul (0-0.6); ABS Lymphocytes 2.1 10^3/ul (1.0-4.8); ABS Monocytes 0.7 10^3/ul (0-0.8); ABS Neutrophils 4.4 10^3/ul (1.5-7.7); ABS Nucleated RBC 0 10^3/ul; Eosinophil % 1.2 % (0-6); Hematocrit 24 % (42-52); Hemoglobin 8.5 g/dl (14.0-18.0); Lymphocyte % 28.2 % (25-47); Mean Corpuscular HGB Conc 35 g/dl (31-36); Mean Corpuscular Hemoglobin 35 pg (27-31); Mean Corpuscular Volume 98 fL (80-94); Mean Platelet Volume 7.3 um3 (7.4-10.4); Nucleated Red Blood Cells % 0; Platelet Count 388 10^3/ul (150-450); Red Blood Count 2.46 10^6/ul (4.00-5.40); Red Cell Distribution Width 14 % (10.5-15); White Blood Count 7.3 10^3/ul (3.5-10.8)
[2018-02-28 05:34] LABS: INR 1.21 (0.77-1.02)
[2018-02-28] MEDS: Insulin LISPRO* 1 UNITS UNIT SUBCUT SCH ×2 (08:41→12:20)
[2018-02-28] MEDS: metFORMIN* 500 MG TAB PO SCH (08:42)
[2018-02-28] MEDS: Allopurinol TAB* 300 MG PO SCH (08:43)
[2018-02-28] MEDS: Docusate CAP* 100 MG PO SCH (08:43)
[2018-02-28] MEDS: Ferrous Sulfate TAB* 325 MG PO SCH (08:43)
[2018-02-28] MEDS: Heparin VIAL(*) 5000 UNITS/ML VIAL (FIVE THOUSAND) SUBCUT SCH (08:44)
[2018-02-28] MEDS ORDERED: Terazosin CAP* 1 MG PO SCH (09:00)
[2018-02-28] MEDS ORDERED: Losartan TAB* 25 MG PO SCH (09:00)
[2018-02-28] MEDS: Mometasone/Formoter 200/5 MDI INH SCH (11:01)
[2018-02-28] MEDS: Acetaminophen TAB* 325 MG PO PRN (13:11)
[2018-02-28] MEDS ORDERED: Warfarin TAB(*) 2.5 MG PO SCH (17:00)
--- NOTE | 2018-03-01 00:12 | DS ---
CC: Dr. Taylor; Dr. Osuna * DISCHARGE SUMMARY: DATE OF ADMISSION: 02/18/18 DATE OF DISCHARGE: 02/28/18 DISCHARGE DIAGNOSES: 1. Left total hip replacement. 2. Orthostatic hypotension. 3. Benign prostatic hypertrophy. 4. Chronic obstructive pulmonary disease. 5. Spinal stenosis. 6. Sleep apnea. 7. Diabetes mellitus. 8. Asthma. 9. Gout. 10. Hypertension. HISTORY OF ILLNESS AND HOSPITAL COURSE: For complete history of the events leading up to his rehab stay, please see the history and physical dictated by me on 02/18/18. While on the rehab unit, the patient did report he was feeling dizzy. He was felt to be orthostatic. His Hytrin, which he was on for blood pressure control and for prostatic hypertrophy was cut in half. The patient continued to report episodes of feeling dizzy and also continued to be orthostatic when blood pressure was measured. His Hytrin was cut again to 2 mg. Considerations to switching him to another agent such as Proscar or Flomax should be given. The patient's losartan was also cut from 50 mg to 25 mg. The patient's wound healed well. He was maintained on Coumadin for DVT prophylaxis. The patient was noted to have acute blood loss anemia. He did not require a transfusion. His hemoglobin got as low as 7.9, but did not require a transfusion. The patient's hemoglobin on discharge was 8.5 and hematocrit of 24. The patient was seen by both Physical and Occupational Therapy and made good gains with both disciplines. With physical therapy at the time of admission, the patient required contact guard to do a transfer. He was able to ambulate 1 step with contact guard. By the time of discharge, the patient was ambulating over 150 feet. He actually ambulated 600 feet with a rolling walker independently. The patient with occupational therapy was supervision for upper body dressing, total assistance for lower body dressing, mod assist for bathing, max assist for toileting. By the time of discharge, he was independent for toilet transfers, supervision for toileting, independent for dressing, supervision for tub transfers. The patient was discharged home on 02/28/18 with his and daughter. Family training was done prior to discharge. The patient was examined by me on the day of discharge and his exam was stable. DISCHARGE DIET: Regular. DISCHARGE MEDICATIONS: 1. Hytrin 2 mg daily. 2. Ferrous sulfate 325 mg daily. 3. Lipitor 20 mg daily. 4. Gabapentin 300 mg at 6 p.m. 5. Cozaar 25 mg daily. 6. Metformin 500 mg twice daily. 7. Singulair 10 mg daily. 8. Oxycodone 5-10 mg every 4 hours as needed. 9. Coumadin 2.5 mg daily or as directed. 10. Symbicort 160/4.5 two puffs twice daily. 11. Allopurinol 300 mg daily. SERVICES AFTER DISCHARGE: Through visiting nurse service. He will have home nursing and home physical therapy. Follow up with Dr. Venecia Taylor in 1 to 3 days as well as with Dr. Osuna. He should have a pro-time and INR drawn by visiting nurse service twice a week. Time for this discharge was approximately 55 minutes, greater than half of which was spent with his and daughter explaining his services after rehab and his post-discharge orders [id number]/CPS #: [id number] MTDAnn Marie
== END 2018-02-28 14:30 | disposition home health service (06) | DRG 560 ==
LOC: PMRU 12:03
PROVIDERS: ADMIT Physical Medicine & Rehabilitation; ATTEND Physical Medicine & Rehabilitation
PROC: F07Z5ZZ Bed Mobility Treatment (ICD-10-PCS; principal; 2018-02-18)
PROC: F07Z9ZZ Gait Training/Functional Ambulation Treatment (ICD-10-PCS; 2018-02-18)
PROC: F07Z8ZZ Transfer Training Treatment (ICD-10-PCS; 2018-02-18)
PROC: F08Z0ZZ Bathing/Showering Techniques Treatment (ICD-10-PCS; 2018-02-18)
PROC: F08Z1ZZ Dressing Techniques Treatment (ICD-10-PCS; 2018-02-18)
PROC: F08Z3ZZ Feeding/Eating Treatment (ICD-10-PCS; 2018-02-18)
DX: Z47.1 Aftercare following joint replacement surgery (principal); D62 Acute posthemorrhagic anemia; J44.9 Chronic obstructive pulmonary disease, unspecified; E11.9 Type 2 diabetes mellitus without complications; Z96.642 Presence of left artificial hip joint; I95.1 Orthostatic hypotension; N40.0 Benign prostatic hyperplasia without lower urinary tract symptoms; M48.00 Spinal stenosis, site unspecified; G47.30 Sleep apnea, unspecified; M10.9 Gout, unspecified; I10 Essential (primary) hypertension; Z79.82 Long term (current) use of aspirin; Z79.899 Other long term (current) drug therapy; Z79.84 Long term (current) use of oral hypoglycemic drugs
CPT/HCPCS: 36415; 71046; 80053; 85014; 85018; 85025; 85027; 85060; 85610; 94640; A9270-GY; J1644

== ENCOUNTER 2018-10-12 22:59 | Emergency (ER) | payer MEDICARE, BC ==
[2018-10-12 23:58] LABS: ABS Basophils 0.1 10^3/ul (0-0.2); ABS Eosinophils 0 10^3/ul (0-0.6); ABS Monocytes 1.3 10^3/ul (0-0.8); ABS Neutrophils 7.5 10^3/ul (1.5-7.7); ABS Nucleated RBC 0 10^3/ul; Eosinophil % 0.3 %; Hematocrit 34 % (36-46); Hemoglobin 11.6 g/dL (14.0-18.0); Lymphocyte % 10.1 %; Mean Corpuscular HGB Conc 34 g/dL (31-36); Mean Corpuscular Hemoglobin 35 pg (27-31); Mean Corpuscular Volume 102 fL (80-94); Mean Platelet Volume 8.2 fL (7.4-10.4); Nucleated Red Blood Cells % 0; Platelet Count 195 10^3/uL (150-450); Red Blood Count 3.35 10^6 /uL (4.18-5.48); Red Cell Distribution Width 14 % (10.5-15); White Blood Count 9.9 10^3/uL (3.5-10.8)
--- NOTE | 2018-10-13 00:07 | ED ---
Lower Extremity - HPI Summary HPI Summary: Patient complains of redness and swelling to left lower extremity 2 days. States history of cutting his fifth digit of left foot on plantar surface 3 days ago. Denies any other symptoms injury or pain, fever, cough, sore throat, CV, SOB, N/V/D, abdominal pain, change in urine, change in BM. Medical history is DM, ALEX, HTN, bradycardia, BPH, CHA. No anti-coagulant. Patient chart states on Coumadin, patient denies. - History of Current Complaint Chief Complaint: EDExtremityLower Stated Complaint: "LEFT FOOT PAIN" PER PT Time Seen by Provider: 10/12/18 23:41 Hx Obtained From: Patient Mechanism Of Injury: Blunt Trauma Onset of Pain: Days Onset/Duration: Days Severity Initially: Moderate Severity Currently: Moderate Pain Intensity: 5 Pain Scale Used: 0-10 Numeric Timing: Constant Location: Is Discrete @ Character Of Pain: Throbbing Associated Signs And Symptoms: Positive: Swelling, Redness Aggravating Factor(s): Weight Bearing Alleviating Factor(s): Elevation Able to Bear Weight: Yes - Allergies/Home Medications Allergies/Adverse Reactions: Allergies Allergy/AdvReac Type Severity Reaction Status Date / Time No Known Drug Allergies Allergy See Comment Verified 02/18/18 21:01 Environmental/Seasonal Allergy Wheezing Uncoded 02/15/18 06:22 Allergies Hay Fever Allergy Wheezing Uncoded 02/15/18 06:22 PMH/Surg Hx/FS Hx/Imm Hx Endocrine/Hematology History: Reports: Hx Diabetes - DM, Hx Anemia - somewhat anemic Denies: Hx Thyroid Disease Cardiovascular History: Reports: Hx Hypertension, Other Cardiovascular Problems/ Disorders - low pulse, occassionally irregular Denies: Hx Pacemaker/ICD Respiratory History: Reports: Hx Asthma, Hx Chronic Obstructive Pulmonary Disease (COPD), Hx Sleep Apnea - does not use CPAP Denies: Other Respiratory Problems/Disorders GI History: Reports: Hx Gastroesophageal Reflux Disease, Hx Hiatal Hernia - had a small, Other GI Disorders - Constipation, regulates with magnesium, nausea at times Denies: Hx Ulcer History: Reports: Hx Benign Prostatic Hyperplasia, Other Problems/ Disorders - BPH Denies: Hx Dialysis, Hx Kidney Stones Musculoskeletal History: Reports: Hx Arthritis, Other Musculoskeletal History - gout Sensory History: Reports: Hx Cataracts - Bilateral removal 11/10/05 and 12/07/06, Hx Contacts or Glasses, Hx Hearing Aid Opthamlomology History: Reports: Hx Cataracts - Bilateral removal 11/10/05 and 06/02, Hx Contacts or Glasses Neurological History: Denies: Hx Dementia, Hx Seizures, Other Neuro Impairments/Disorders Psychiatric History: Denies: Hx Panic Disorder, Other Psychiatric Issues/Disorders Comment Only: Hx Anxiety - . - Cancer History Hx Chemotherapy: No Hx Radiation Therapy: No Hx Palliative Cancer Treatment: No - Surgical History Surgery Procedure, Year, and Place: R SHOULDER SURGERY 03/18/2011 AT [facility] IN [place],. CATARACTS with IOL bilat eyes,. 2015 EGD with Balloon dilation. 02/15/18 left total hip Hx Anesthesia Reactions: Yes - during shoulder surgery- heart stopped Infectious Disease History: No Infectious Disease History: Denies: Hx Hepatitis, Hx Human Immunodeficiency Virus (HIV), History Other Infectious Disease, Traveled Outside the in Last 30 Days - Social History Alcohol Use: None Alcohol Amount: maybe a coctail before dinner Substance Use Type: Reports: None Hx Tobacco Use: No Smoking Status (MU): Never Smoked Tobacco Review of Systems Constitutional: Negative Eyes: Negative ENT: Negative Cardiovascular: Negative Respiratory: Negative Gastrointestinal: Negative Genitourinary: Negative Musculoskeletal: Other Skin: Other Neurological: Negative Psychological: Normal All Other Systems Reviewed And Are Negative: Yes Physical Exam - Summary Physical Exam Summary: Positive erythema, swelling and extra warmth to left foot and bottom one third of left lower extremity. Erythema is circumferential. Calf soft nontender. Evidence of basal found in fold at plantar base of fifth digit of left foot. No pain with palpation of knee flexion and extension of left knee. Triage Information Reviewed: Yes Vital Signs On Initial Exam: Initial Vitals Temp Pulse Resp BP Pulse Ox 99.9 F 80 20 191/83 98 10/12/18 23:02 10/12/18 23:02 10/12/18 23:02 10/12/18 23:02 10/12/18 23:02 Vital Signs Reviewed: Yes Appearance: Positive: Well-Appearing Skin: Positive: Warm Head/Face: Positive: Normal Head/Face Inspection Eyes: Positive: Normal Neck: Positive: Supple Respiratory/Lung Sounds: Positive: Clear to Auscultation Cardiovascular: Positive: Normal Abdomen Description: Positive: Nontender Musculoskeletal: Positive: Normal Neurological: Positive: Normal Psychiatric: Positive: Normal AVPU Assessment: Alert - Mika Coma Scale Best Eye Response: 4 - Spontaneous Best Motor Response: 6 - Obeys Commands Best Verbal Response: 5 - Oriented Coma Scale Total: 15 Diagnostics - Vital Signs Vital Signs Temp Pulse Resp BP Pulse Ox 10/12/18 23:02 99.9 F 80 20 191/83 98 - Laboratory Lab Results: Lab Results 10/12/18 Range/Units 23:50 WBC 9.9 (3.5-10.8) 10^3/uL RBC 3.35 L (4.18-5.48) 10^6 /uL Hgb 11.6 L (14.0-18.0) g/dL Hct 34 L (36-46) % MCV 102 H (80-94) fL MCH 35 H (27-31) pg MCHC 34 (31-36) g/dL RDW 14 (10.5-15) % Plt Count 195 (150-450) 10^3/uL MPV 8.2 (7.4-10.4) fL Neut % (Auto) 76.3 % Lymph % (Auto) 10.1 % Isabella % (Auto) 12.7 % Eos % (Auto) 0.3 % Baso % (Auto) 0.6 % Absolute Neuts (auto) 7.5 (1.5-7.7) 10^3/ul Absolute Lymphs (auto) 1.0 (1.0-4.8) 10^3/ul Absolute Monos (auto) 1.3 H (0-0.8) 10^3/ul Absolute Eos (auto) 0 (0-0.6) 10^3/ul Absolute Basos (auto) 0.1 (0-0.2) 10^3/ul Absolute Nucleated RBC 0 10^3/ul Nucleated RBC % 0 Result Diagrams: 10/12/18 23:50 10/12/18 23:50 Lab Statement: Any lab studies that have been ordered have been reviewed, and results considered in the medical decision making process. Lower Extremity Course/Dx - Course Course Of Treatment: Patient complains of redness and swelling to left lower extremity 2 days. States history of cutting his fifth digit of left foot on plantar surface 3 days ago. Denies any other symptoms injury or pain, fever, cough, sore throat, CV, SOB, N/V/D, abdominal pain, change in urine, change in BM. Medical history is DM, ALEX, HTN, bradycardia, BPH, CHA. No anti- coagulant. Patient chart states on Coumadin, patient denies. Physical exam: Positive erythema, swelling and extra warmth to left foot and bottom one third of left lower extremity. Erythema is circumferential. Calf soft nontender. Evidence of basal found in fold at plantar base of fifth digit of left foot. No pain with palpation of knee flexion and extension of left knee. Vital signs within normal limits. Labs unremarkable right patient baseline. Ultrasound negative for DVT. Diagnosis cellulitis. Patient restarted on by mouth Bactrim. Rx for same - Diagnoses Provider Diagnoses: Cellulitis Discharge - Sign-Out/Discharge Documenting (check all that apply): Patient Departure Patient Received Moderate/Deep Sedation with Procedure: No - Discharge Plan Condition: Stable Disposition: HOME Prescriptions: Sulfamethox/Trimethoprim DS* [Bactrim DS 800/160 TAB*] 1 tab PO BID 10 Days #20 tab Patient Education Materials: Cellulitis (ED) Referrals: Ej Osuna DO [Primary Care Provider] - Additional Instructions: Take antibiotics as directed. The redness of left foot may increase over the next day, but she started to improve after 48 hours of antibiotics. Return to the ED for any worsening symptoms such as fever, nausea or vomiting. - Billing Disposition and Condition Condition: STABLE Disposition: Home
[2018-10-13 00:14] LABS: Albumin 4.3 g/dL (3.2-5.2); Albumin/Globulin Ratio 1.7 (1-3); BUN/Creatinine Ratio 21.2 (8-20); C Reactive Protein 103.35 mg/L (<8.01); Calcium 9.8 mg/dL (8.6-10.3); EGFR African American 81.6 (>60); EGFR Non-African American 67.4 (>60); Globulin 2.6 g/dL (2-4); Potassium 4.2 mmol/L (3.5-5.0); Total Bilirubin 0.4 mg/dL (0.2-1.0); Total Protein 6.9 g/dL (6.4-8.9)
[2018-10-13] MEDS ORDERED: Sulfamethox/Trimethoprim DS 800/160* TAB PO ONE (01:36)
[2018-10-13 02:59] VITALS: BP 142/59
== END 2018-10-13 03:02 | disposition home or self-care (01) ==
LOC: ED 22:59
DX: L03.116 Cellulitis of left lower limb (principal); E11.9 Type 2 diabetes mellitus without complications; I10 Essential (primary) hypertension; J44.9 Chronic obstructive pulmonary disease, unspecified; N40.0 Benign prostatic hyperplasia without lower urinary tract symptoms; K21.9 Gastro-esophageal reflux disease without esophagitis; G47.33 Obstructive sleep apnea (adult) (pediatric); N17.9 Acute kidney failure, unspecified
CPT/HCPCS: 36415; 80053; 83605; 85025; 86140; 99282; A9270-GY